=== PATIENT | male | born 1940 | race Caucasian/White ===

== ENCOUNTER → 2018-01-22 | Outpatient (CLI) | payer MEDICARE ==
--- NOTE | 2018-01-22 09:15 | CT ---
EXAMINATION TYPE: CT chest wo con DATE OF EXAM: 01/22/2018 COMPARISON: NONE HISTORY: Cough CT DLP: 590 mGycm. Automated Exposure Control for Dose Reduction was Utilized. TECHNIQUE: CT scan of the thorax is performed without IV contrast. FINDINGS: LUNGS: There is a 6 mm cavitary nodule within the right upper lobe on sagittal series 7 image 23 and axial series 4 image 33 peripherally. Solid left basilar pulmonary nodule on series 4 image 45 measur es 4 mm. There are numerous areas of subpleural reticulation and early honeycombing such as on series 4 image 35 is there is stacking of at least 3 lung cysts upon one another within the lingula scatter ed areas of peribronchial cuffing are seen such as on series 4 image [address] anes. Right upper lobe peripheral bleb is incidentally noted with right upper lobe groundglass opacit ies and focal anterior pleural thickening measuring up to 4 mm on the right cylindrical bronchiectasi s is seen within the lower lobes in addition to scattered areas of subsegmental linear atelectasis an d pleural parenchymal scarring. No focal consolidation, pleural effusion or pneumothorax is seen. Left upper lobe varicose bronchiect asis is identified on sagittal series 7 image 83. The main tracheobronchial tree is patent. MEDIASTINUM: Lack of IV contrast is noted to limit evaluation for mediastinal and especially hilar ad enopathy. There are no definitive greater than 1 cm hilar or mediastinal lymph nodes. Moderate three- vessel coronary artery calcifications are present moderate atheromatous changes are seen of the thora cic aorta and visualized portions of the abdominal aorta. No cardiomegaly or pericardial effusion is seen. OTHER: There is a 2.6 cm right renal cyst and a 3.4 cm right renal cyst. There are lobulated margins of the kidneys, incompletely evaluated without contrast. Additional smaller right renal cysts are see n with cortical calcifications and areas of renal parenchymal retraction likely from prior injury. Sc attered colonic diverticula are incidentally noted. Moderate multilevel degenerative changes of the t horacic spine are seen. IMPRESSION: 1. 6 mm right upper lobe cavitary nodule for which short-term follow-up in 3 months is recommended as this could be postinflammatory, postinfectious or neoplastic. 2. Features suggesting early pulmonary fibrosis within the lung bases in a peripheral basilar distrib ution and lingula. No features to silhouette of either diagnosis are yet present. 3. Lower lobe predominant bronchiectasis and few scattered areas of peribronchial cuffing that may be inflammatory or infectious. 4. Scattered areas of atelectasis in the right upper lobe subpleural groundglass opacities that also could relate to atelectasis or less likely infectious etiology. 5. Moderate three-vessel coronary artery calcifications.
--- NOTE | 2018-01-22 09:23 | US ---
EXAMINATION TYPE: US venous doppler duplex LE DATE OF EXAM: 01/22/2018 8:29 AM COMPARISON: NONE CLINICAL HISTORY: M79.609 pain in extremity. Bilateral calf pain. SIDE PERFORMED: Bilateral TECHNIQUE: The lower extremity deep venous system is examined utilizing real time linear array sonog brayden with graded compression, doppler sonography and color-flow sonography. VESSELS IMAGED: External Iliac Vein (EIV) Common Femoral Vein Deep Femoral Vein Greater Saphenous Vein * Femoral Vein Popliteal Vein Proximal Calf Veins (* superficial vessels) Grayscale, color doppler, spectral doppler imaging performed of the deep veins of the lower extremiti es. There is normal flow, compressibility, vascular waveforms. Right Leg: Negative for DVT Left Leg: Negative for DVT IMPRESSION: No evidence for DVT bilaterally.
--- NOTE | 2018-01-26 10:15 | P.ARTDOP ---
Arterial Doppler LOWER EXTREMITY ARTERIAL DOPPLER: DATE OF SERVICE: 01/22/2018 Reason for study: Bilateral calf pain. Doppler waveforms: Multiphasic bilaterally throughout. Pulse volume recording: []. Pressure gradients: None. Ankle-brachial indices: Greater than 1 bilaterally. Toe pressures: [] on the right, [] on the left Impression: Normal study.
== END | disposition home or self-care (01) ==
LOC: RADCTMAIN 07:39
PROVIDERS: ATTEND Internal Medicine
DX: R91.1 Solitary pulmonary nodule (principal); J47.9 Bronchiectasis, uncomplicated; J98.11 Atelectasis; I25.10 Atherosclerotic heart disease of native coronary artery without angina pectoris; M79.662 Pain in left lower leg; M79.661 Pain in right lower leg
CPT/HCPCS: 71250; 93922; 93970

== ENCOUNTER → 2018-02-22 | Outpatient (CLI) | payer MEDICARE ==
[2018-02-22 17:09] LABS: HGB 15.3 gm/dL (13.0-17.5); MCHC 34.7 g/dL (31.0-37.0); Platelet Count 158 k/uL (150-450); RBC 4.64 m/uL (4.30-5.90); RDW 14.1 % (11.5-15.5); WBC 8.8 k/uL (3.8-10.6)
[2018-02-22 17:13] LABS: Potassium 4.8 mmol/L (3.5-5.1)
== END | disposition home or self-care (01) ==
LOC: LABWHC1 16:20
PROVIDERS: ATTEND Internal Medicine Interventional Cardiology
DX: Z01.812 Encounter for preprocedural laboratory examination (principal); I25.10 Atherosclerotic heart disease of native coronary artery without angina pectoris
CPT/HCPCS: 80051; 82565; 84520; 85027

== ENCOUNTER 2018-03-02 06:48 | Day surgery (SDC) | payer MEDICARE ==
[2018-02-24 15:05] VITALS: BMI 32.8
[~2018-03-02 06:48] MED LIST: ALPRAZolam 0.25 MG TAB PO PRN; ASPIRIN 325 MG TAB PO ONE; ATORVASTATIN 80 MG TAB PO STA; NITROGLYCERIN SL TABS 0.4 MG TAB SUBLINGUAL PRN; SODIUM CHLORIDE 0.9% 1,000 ML in EMPTY BAG 1 BAG IV ONE
[2018-03-02] MEDS ORDERED: IV FLUID CONTINUATION 1,000 ML IV ONE (12:20)
[2018-03-02] MEDS ORDERED: MIDAZOLAM 2 MG/2 ML VIAL IV ONE (12:45)
[2018-03-02] MEDS ORDERED: LIDOCAINE 2% SYG (PF) 100 MG/5 ML MISCELLANE ONE (12:46)
[2018-03-02] MEDS: VERAPAMIL SYRINGE (5 MG/10 ML) INTRAARTER ONE ×2 (12:47→13:01)
[2018-03-02] MEDS ORDERED: HEPARIN SODIUM 1,000 UN/ML (10ML VL) IV ONE (12:48)
[2018-03-02] MEDS ORDERED: IOPAMIDOL-370 125ML BTL INJ ONE (13:01)
[2018-03-02] MEDS ORDERED: RX INFO: IV CONTRAST WAS GIVEN 1 EACH MISC MISCELLANE PRN (13:10)
[2018-03-02] MEDS ORDERED: SODIUM CHLORIDE 0.9% 1,000 ML IV SCH (13:15)
--- NOTE | 2018-03-02 13:38 | CC ---
CARDIAC CATHETERIZATION REPORT DATE OF SERVICE: 03/02/2018 PERFORMING PHYSICIAN: Raymond Summers MD, microfilming document preparer. PROCEDURE PERFORMED: 1. Selective right and left coronary angiogram. 2. Left heart catheterization. INDICATION: This is a pleasant 78-year-old gentleman with hypertension and dyslipidemia who was experiencing intermittent episodes of chest discomfort concerning for angina. In view of that, he was brought to undergo a heart catheterization. APPROACH: Right radial artery. COMPLICATION: None. LEVEL OF SEDATION: Moderate with sedation length of 18 minutes. PROCEDURE DESCRIPTION: After obtaining an informed consent, the patient was brought to the cardiac union laborer. The right radial artery was cannulated using micropuncture technique and a micropuncture wire passed easily then I placed a 6-[place] sheath in the right radial artery. After that, I did selective right and left coronary angiogram using JR4 and JL3.5 catheters. Left heart catheterization was performed using 6-[place] pigtail catheter. The procedure was completed without any complication. SELECTIVE CORONARY ANGIOGRAM: 1. The RCA is a large caliber vessel and it is a dominant vessel. The proximal RCA has intermediate lesion, appeared to be in the range of 50%. The mid RCA and distal RCA are angiographically normal. The RCA distally bifurcates into PDA and PLV branches both are angiographically normal. 2. The left main is angiographically normal. It bifurcates into left circumflex and left anterior descending artery. 3. The left circumflex is a large caliber vessel and it is a nondominant vessel. The proximal circumflex appeared to be angiographically normal and gives rise into the first OM branch which is a large caliber vessel, seems to be angiographically normal. The circumflex after the first OM branch becomes medium caliber vessel in the AV groove. 4. The LAD: The proximal LAD appeared to have mild disease only. The mid LAD appeared to be angiographically normal and the LAD distally is angiographically normal as well. The LAD gives rise into multiple small diagonal branches that seems to be angiographically normal. HEMODYNAMICS: The left ventricular end-diastolic pressure was 16 mmHg and no gradient was identified across the aortic valve. CONCLUSION: 1. Intermediate disease involving the proximal right coronary artery appeared to be in the range of 60%. The lesion is eccentric and was seen more prominent in the [place] caudal view. 2. Normal left main coronary artery. 3. Normal left circumflex coronary artery. 4. Mild disease involving the left anterior descending artery. Postprocedure management is maximize medical treatment and follow up with the patient. MELO / SEEMAN: [id number] /
--- NOTE | 2018-03-02 13:44 | LTR ---
March 02, 2018 Re: Rashawn Romo Dear Dr. Gamez: Mr. Rashawn Romo underwent heart catheterization and that revealed intermediate nonobstructive coronary artery disease involving the RCA. Maximized medical treatment is recommended at this point of time. I want to thank you for allowing me to participate in his care and please do not hesitate to call if you have any question or concern. Sincerely, MD MELO Hernandez / PILAR: [phone] /
[2018-03-02 14:24] VITALS: RESP 20
[2018-03-02 17:38] VITALS: BP 125/60
== END 2018-03-02 18:04 | disposition home or self-care (01) ==
LOC: CATHCVL 06:48
PROVIDERS: ATTEND Internal Medicine Interventional Cardiology
DX: I25.110 Atherosclerotic heart disease of native coronary artery with unstable angina pectoris (principal); I10 Essential (primary) hypertension; E78.00 Pure hypercholesterolemia, unspecified; Z79.82 Long term (current) use of aspirin; Z79.890 Hormone replacement therapy; Z79.899 Other long term (current) drug therapy; Z88.1 Allergy status to other antibiotic agents; Z88.0 Allergy status to penicillin; Z88.2 Allergy status to sulfonamides; Z87.891 Personal history of nicotine dependence
CPT/HCPCS: 93458; C1894; J2250; J2001; J1644; Q9967

== ENCOUNTER → 2018-05-10 | Outpatient (CLI) | payer MEDICARE ==
--- NOTE | 2018-05-10 09:07 | CT ---
EXAMINATION TYPE: High-resolution CT chest DATE OF EXAM: 05/10/2018 COMPARISON: 01/22/2018 HISTORY: 78-year-old male previous abnormal, shortness of breath TECHNIQUE: Contiguous high-resolution axial scanning of the chest was performed with 1 mm slice thick ness and 1 cm gap without IV contrast. Both supine and prone imaging was performed. CT DLP: 965.20 mGycm Automated exposure control for dose reduction was used. FINDINGS: Heart is normal size without pericardial effusion. Coronary vessel calcifications are redemonstrated. Conventional branching anatomy with mild to moderate atherosclerotic calcifications in the aortic arc h and mild within the descending thoracic aorta. Borderline sized caliber to the main right and left pulmonary arteries at 2.5 cm each. Scattered nonenlarged mediastinal lymph nodes are demonstrated by HRCT technique. Evaluation of the lungs shows patchy peripheral groundglass density and reticulations with a lower leticia ng predominance but also present within the upper lobes. Also redemonstrated bibasilar bronchiectasis . Subpleural microcystic changes present peripherally at the lung bases as well. Overall appearance i s unchanged. Stable 6 mm pulmonary nodule peripheral right midlung again shows a small area of central cavitation. HRCT technique limits assessment for small pulmonary nodules. Visualized upper abdomen redemonstrates hypodense lesions in the right kidney measuring up to 2.9 cm posteriorly, probable cyst. Bones: Endplate spondylosis throughout the thoracic spine. IMPRESSION: 1. REDEMONSTRATED PATCHY PERIPHERAL GROUNDGLASS DENSITIES AND SUBPLEURAL FIBROSIS WITH A LOWER LUNG P REDOMINANCE AND ASSOCIATED BIBASILAR BRONCHIECTASIS WITH SUBPLEURAL MICROCYSTIC CHANGES. DIFFERENTIAL CONSIDERATIONS INCLUDE FIBROTIC NSIP OR EARLY UIP. 2. A 6 MM RIGHT MIDLUNG PULMONARY NODULE IS RELATIVELY STABLE FOR 3 MONTHS AND AGAIN SHOWS A SMALL AR EA OF CENTRAL CAVITATION. CONTINUED FOLLOW-UP RECOMMENDED. 3. CAD.
== END | disposition home or self-care (01) ==
LOC: RADCTMAIN 08:28
PROVIDERS: ATTEND Internal Medicine Critical Care Medicine
DX: J47.9 Bronchiectasis, uncomplicated (principal); J84.10 Pulmonary fibrosis, unspecified; I25.10 Atherosclerotic heart disease of native coronary artery without angina pectoris; R91.1 Solitary pulmonary nodule; J98.4 Other disorders of lung; J94.8 Other specified pleural conditions
CPT/HCPCS: 71250

== ENCOUNTER → 2018-12-16 | Outpatient (CLI) | payer MEDICARE ==
--- NOTE | 2018-12-16 14:55 | CT ---
EXAMINATION TYPE: High resolution CT chest DATE OF EXAM: 12/16/2018 COMPARISON: 05/10/2018 HISTORY: 78-year-old male Fibrosis of lung. TECHNIQUE: Contiguous high-resolution axial scanning of the chest utilizing 1 mm slice thickness and 1 cm gap per HRCT protocol without IV contrast. Both supine and prone imaging was performed. CT DLP: 1119.6 mGycm Automated exposure control for dose reduction was used. FINDINGS: Heart normal size without pericardial effusion. Mild atherosclerotic arch calcifications. Proximal descending thoracic aorta remains ectatic at 3.0 c m. Mildly enlarged caliber to the right main pulmonary artery 2.7 cm may reflect underlying pulmonary ar terial hypertension. Scattered nonenlarged mediastinal lymph nodes are redemonstrated.. Visualized upper abdomen shows hypodense lesions within the posterior right kidney measuring up to 3. 3 cm, incompletely characterize, probable cysts. Bones: Endplate spondylosis throughout the thoracic spine. Redemonstrated multifocal peripheral and basilar predominant ground glass with reticular densities an d bibasilar bronchiectasis and minimal subpleural microcystic change. The overall appearance is uncha nged from 05/10/2018. No new consolidation or pleural effusion. IMPRESSION: 1. STABLE INTERSTITIAL AND GROUNDGLASS CHANGES, PERIPHERAL AND LOWER LUNG PREDOMINANT WITH BIBASILAR BRONCHIECTASIS. NO PROGRESSION IN THE FINE SUBPLEURAL MICROCYSTIC CHANGE AND NO HONEYCOMBING. NSIP I S FAVORED. 2. THE PREVIOUS 6 MM CAVITARY APPEARING LESION RIGHT MIDLUNG IS NO LONGER SEEN. 3. POSSIBLE UNDERLYING PULMONARY ARTERIAL HYPERTENSION.
== END | disposition home or self-care (01) ==
LOC: RADCTMAIN 11:58
PROVIDERS: ATTEND Internal Medicine Critical Care Medicine
DX: J47.9 Bronchiectasis, uncomplicated (principal); R91.8 Other nonspecific abnormal finding of lung field; Z88.0 Allergy status to penicillin; Z88.1 Allergy status to other antibiotic agents; Z88.2 Allergy status to sulfonamides; Z91.041 Radiographic dye allergy status
CPT/HCPCS: 71250

== ENCOUNTER → 2019-07-22 | Outpatient (CLI) | payer MEDICARE ==
[2019-07-22 09:52] LABS: Potassium 4.7 mmol/L (3.5-5.1)
[2019-07-22 10:24] LABS: HCT 41.6 % (39.0-53.0); HGB 14.3 gm/dL (13.0-17.5); MCH 32.7 pg (25.0-35.0); MCHC 34.3 g/dL (31.0-37.0); MCV 95.2 fL (80.0-100.0); Mean Platelet Volume 5.7; Platelet Count 182 k/uL (150-450); RBC 4.37 m/uL (4.30-5.90); RDW 13.7 % (11.5-15.5); WBC 8.6 k/uL (3.8-10.6)
== END | disposition home or self-care (01) ==
LOC: LABPAT 08:56
PROVIDERS: ATTEND Internal Medicine Interventional Cardiology
DX: Z01.812 Encounter for preprocedural laboratory examination (principal); I25.10 Atherosclerotic heart disease of native coronary artery without angina pectoris
CPT/HCPCS: 36415; 80051; 82565; 84520; 85027

== ENCOUNTER 2019-08-02 06:06 | Day surgery (SDC) | payer MEDICARE ==
[~2019-08-02 06:06] MED LIST changes: +ALPRAZolam 0.5 MG TAB PO PRN; -ASPIRIN 325 MG TAB PO ONE; +ASPIRIN 325 MG TAB PO STA
[2019-08-02] MEDS ORDERED: SODIUM CHLORIDE 0.9% 1,000 ML IV ONE (06:47)
[2019-08-02] MEDS ORDERED: MIDAZOLAM 2 MG/2 ML VIAL IVP ONE (07:42)
[2019-08-02] MEDS ORDERED: LIDOCAINE 1% INJ 10MG/ML (20 ML MDV) SQ ONE (07:42)
[2019-08-02] MEDS ORDERED: VERAPAMIL SYRINGE (5 MG/10 ML) INTRAARTER ONE ×2 (07:44→08:27)
[2019-08-02] MEDS ORDERED: HEPARIN SODIUM 1,000 UN/ML (10ML VL) IV ONE (07:49)
[2019-08-02] MEDS ORDERED: ADENOSINE 3 MG/ML 4 ML VIAL IVP ONE (08:10)
[2019-08-02] MEDS ORDERED: SODIUM CHLORIDE 0.9% 100 ML BAG ONE (08:10)
[2019-08-02] MEDS ORDERED: CLOPIDOGREL 75 MG TAB PO ONE (08:14)
[2019-08-02] MEDS ORDERED: NITROGLYCERIN 1000MCG/10ML SYRINGE INTRACORON ONE (08:21)
[2019-08-02] MEDS ORDERED: IOPAMIDOL-370 100ML BTL INJ ONE (08:23)
[2019-08-02] MEDS ORDERED: IOPAMIDOL-300 50ML BTL INJ ONE (08:27)
[2019-08-02] MEDS ORDERED: NITROGLYCERIN SL TABS 0.4 MG TAB SUBLINGUAL PRN (08:34)
[2019-08-02] MEDS ORDERED: MAG HYDROX/AL HYDROX/SIMETH 30 ML CUP PO PRN (08:34)
[2019-08-02] MEDS ORDERED: ATROPINE SULFATE 0.1 MG/ML 10ML SYRINGE IV PRN (08:34)
[2019-08-02] MEDS ORDERED: RX INFO: IV CONTRAST WAS GIVEN 1 EACH MISC MISCELLANE PRN (08:34)
[2019-08-02] MEDS ORDERED: ZOLPIDEM 5 MG TAB PO PRN (08:34)
[2019-08-02] MEDS ORDERED: NON FORMULARY DRUG (Turmeric Root Extract [Turmeric] 500 MG) PO SCH (08:45)
[2019-08-02] MEDS ORDERED: SODIUM CHLORIDE 0.9% 1,000 ML IV SCH (08:45)
[2019-08-02] MEDS ORDERED: NON FORMULARY DRUG (Ubidecarenone [Co Q-10] 100 MG) PO SCH (08:45)
[2019-08-02] MEDS ORDERED: GLUCOSAMINE SULFATE 500 MG PO SCH (09:00)
--- NOTE | 2019-08-02 09:24 | CC ---
CARDIAC CATHETERIZATION REPORT CARDIAC CATHETERIZATION AND PERCUTANEOUS CORONARY INTERVENTION: DATE OF SERVICE: August 02, 2019 PERFORMING PHYSICIAN: Raymond Summers MD. PROCEDURE PERFORMED: 1. Selective right and left coronary angiogram. 2. Fractional flow reserve FFR of the RCA. 3. Successful stenting of the proximal right coronary artery using 4.0 x 18 mm Xience STEPHEN with an excellent angiographic result and reduction of stenosis from 70% to 0%. INDICATION: This is an 79-year-old gentleman with history of coronary artery disease as well as hypertension and dyslipidemia who continues to be symptomatic. He underwent myocardial perfusion imaging and that revealed reversible defect involving the apex of the left ventricle. Because of that, a heart catheterization was advised. APPROACH: Right radial artery. COMPLICATION: None. LEVEL OF SEDATION: Moderate with sedation length of 53 minutes. PROCEDURE DESCRIPTION: After obtaining an informed consent, the patient was brought to the cardiac labor relations specialist. The right radial artery was cannulated using micropuncture technique, the micropuncture wire passed easily then I placed a 6-[place] sheath in the right radial artery. After that, I did give the patient 2 mg of verapamil IA and 10,000 units of heparin IV. Selective right and left coronary angiogram performed using JR4 and JL3.5 catheters. Left heart catheterization was performed using the JR4 catheter which crossed the aortic valve then I did pullback across the valve after I flushed the catheter. After that I did FFR of the RCA and stenting of the RCA. Please see a separate paragraph for that. SELECTIVE CORONARY ANGIOGRAM: 1. Right coronary artery is a large caliber vessel. It is a dominant vessel. The proximal RCA has a lesion appeared to be in the range of 60% to 70%. We did an FFR on it and that came in to be ischemic. The mid and distal RCA appeared to be angiographically normal. The RCA distally bifurcates into PDA and PLV branches, both appeared to be angiographically normal. 2. The left main has mild disease only. It bifurcates into left circumflex and left anterior descending artery. 3. The left circumflex is a large caliber vessel. It is a nondominant vessel. The proximal circumflex appeared to be normal and gives rise into a first OM branch which appeared to be normal. The mid circumflex is normal and gives rise into a second OM branch which seems to be normal and the circumflex continued after that as a small-caliber vessel in the AV groove. 4. The LAD: Proximal LAD appeared to have mild disease only. It gives rise into a small diagonal branch which seems to be normal. The mid LAD is normal and gives rise into second diagonal branch which seems to be normal and the LAD distally appeared to be normal. HEMODYNAMICS: The LVEDP was about 8 to 12 mmHg without significant gradient across the aortic valve. FFR AND PCI OF THE RCA: After assuring that the ACT was therapeutic with heparin, we did an iFR of the RCA and we did that after zeroing the Doppler wire and equalizing between the Doppler wire and the guiding catheter which was JR4 guiding catheter. The iFR came into be 0.83. At that point, I did balloon angioplasty of the RCA using a 3.0 x 15 mm balloon before I deployed 4.0 x 18 mm Xience STEPHEN where the stent was positioned under fluoroscopy guidance and deployed under 14 atmospheres for 20 seconds with the following angiogram showing good angiographic results and the procedure was completed without any complication. CONCLUSION: 1. Intermediate to severe disease involving the proximal right coronary artery. I did an iFR on it and that came in to be ischemic. 2. Mild disease involving the left coronary system. 3. Successful stenting of the proximal RCA using 4.0 x 18 mm Xience with an excellent angiographic result. POSTPROCEDURE MANAGEMENT: 1. Medical treatment. 2. Follow up with the patient. MMODL / IJN: [id number] /
[2019-08-02] MEDS: guaiFENesin 600 MG TABLET.ER PO SCH (10:16)
[2019-08-02] MEDS: MULTIVITAMINS, THERA 1 EACH TAB PO SCH (10:16)
[2019-08-02] MEDS: LEVOTHYROXINE 100 MCG TAB PO SCH (10:37)
[2019-08-02 11:21] VITALS: BMI 31.8
[2019-08-03 05:04] VITALS: PULSE 79; TEMP 98.2
[2019-08-03] MEDS: LEVOTHYROXINE 100 MCG TAB PO SCH (06:09)
[2019-08-03 06:38] LABS: Basophils % (A) 0 %; Eosinophils # (A) 0.4 k/uL (0-0.7); Eosinophils % (A) 4 %; HCT 39.9 % (39.0-53.0); HGB 13.5 gm/dL (13.0-17.5); Lymphocytes # (A) 1.8 k/uL (1.0-4.8); Lymphocytes % (A) 20 %; MCH 32.1 pg (25.0-35.0); MCV 94.7 fL (80.0-100.0); Mean Platelet Volume 6.6; Monocytes # (A) 0.6 k/uL (0-1.0); Monocytes % (A) 7 %; Neutrophils % (A) 66 %; Platelet Count 194 k/uL (150-450); RBC 4.22 m/uL (4.30-5.90); RDW 13.3 % (11.5-15.5)
[2019-08-03 06:47] LABS: Calcium 8.9 mg/dL (8.4-10.2); Potassium 4.3 mmol/L (3.5-5.1)
[2019-08-03] MEDS ORDERED: METOPROLOL TARTRATE 25 MG TAB PO SCH (09:00)
[2019-08-03] MEDS ORDERED: ATORVASTATIN 40 MG TAB PO SCH (09:00)
[2019-08-03] MEDS ORDERED: ATORVASTATIN 20 MG TAB PO SCH (09:00)
[2019-08-03] MEDS ORDERED: LISINOPRIL 5 MG TAB PO SCH (09:00)
[2019-08-03] MEDS ORDERED: CLOPIDOGREL 75 MG TAB PO SCH (09:00)
[2019-08-03] MEDS ORDERED: ASPIRIN 81 MG PO SCH (09:00)
[2019-08-03] MEDS: guaiFENesin 600 MG TABLET.ER PO SCH (09:09)
[2019-08-03] MEDS: MULTIVITAMINS, THERA 1 EACH TAB PO SCH (09:09)
--- NOTE | 2019-08-03 09:34 | P.PN ---
Subjective Progress Note Date: 08/03/19 Discharge note This is a pleasant 79-year-old gentleman with history of coronary artery disease, hypertension, hyperlipidemia, underwent a stress test as an outpatient which revealed reversible defect in the apex of the left ventricle and for that reason he was brought to the hospital and underwent a cardiac catheterization. Patient also underwent an FFR of the RCA with subsequent successful stenting of the right coronary artery. He was seen and examined this morning, denied any chest pain or difficulty in breathing. He's been up ambulating without any difficulty. EKG from this morning showed a normal sinus rhythm with no changes from post-PCI. Blood pressure 138/60 with a heart rate is 70, 95% on room air. Blood cell count 9.0, hemoglobin 13.5, platelet count 194. Sodium 139, potassium 4.3, BUN 19 and creatinine 1.2. Objective - Vital Signs Vital signs: Vital Signs Temp 98.2 F 08/03/19 04:00 Pulse 79 08/03/19 04:00 Resp 18 08/03/19 04:00 BP 138/65 08/03/19 04:00 Pulse Ox 95 08/03/19 04:00 Intake & Output 08/02/19 08/03/19 08/03/19 18:59 06:59 18:59 Intake Total 990 240 Output Total 900 Balance 990 -660 Weight 100.9 kg 101.2 kg Intake: IV 150 Oral 840 240 Output: Urine 900 Other: Voiding Method Toilet # Voids 2 2 - Exam PHYSICAL EXAMINATION: GENERAL: 79-year-old gentleman in no acute distress at the time of my examination HEENT: Head is atraumatic, normocephalic. Pupils equal, round. Sclera anicteric. Conjunctiva are clear. Mucous membranes of the mouth are moist. Neck is supple. There is no elevated jugular venous pressure. No carotid bruit is heard. HEART EXAMINATION: Heart S1, S2 normal. No murmur or gallop heard. CHEST EXAMINATION: Lungs are clear to auscultation and precussion. No chest wall tenderness is noted on palpation or with deep breathing. ABDOMEN: Soft, nontender. Bowel sounds are heard. No organomegaly noted. EXTREMITIES: 2+ peripheral pulses with no evidence of peripheral edema and no calf tenderness noted. Right radial site clean and dry, good distal pulse. NEUROLOGIC patient is awake, alert and oriented 3 . . - Labs CBC & Chem 7: 08/03/19 05:44 08/03/19 05:44 Labs: Abnormal Lab Results - Last 24 Hours (Table) 08/03/19 08/03/19 Range/Units 05:44 05:44 RBC 4.22 L (4.30-5.90) m/uL Creatinine 1.29 H (0.66-1.25) mg/dL Assessment and Plan Plan: Assessment and plan #1 status post angioplasty and stenting of the proximal right coronary artery #2 known history of coronary artery disease #3 hypertension #4 hyperlipidemia Plan Patient will be discharged home today, follow-up appointment with Dr. Summers in the office post discharge. Discharge medications include aspirin 81 mg daily, Lipitor 40 mg daily, Plavix 75 mg daily, Zestril 5 mg daily, Synthroid 100 g daily, metoprolol 25 mg twice a day, multivitamin, sublingual nitroglycerin as needed for chest pain. DNP note has been reviewed, I agree with a documented findings and plan of care. Patient was seen and examined.
[2019-08-03 09:41] VITALS: BP 136/63; RESP 14
== END 2019-08-03 09:22 | disposition home or self-care (01) ==
LOC: CATHCVL 06:06 → 3SCARD 08:34 → CATHCVL 08-03 09:22
PROVIDERS: ATTEND Internal Medicine Interventional Cardiology
DX: I25.110 Atherosclerotic heart disease of native coronary artery with unstable angina pectoris (principal); I10 Essential (primary) hypertension; E78.00 Pure hypercholesterolemia, unspecified; E78.5 Hyperlipidemia, unspecified; F17.210 Nicotine dependence, cigarettes, uncomplicated; Z79.82 Long term (current) use of aspirin; Z79.899 Other long term (current) drug therapy; Z79.890 Hormone replacement therapy; Z88.1 Allergy status to other antibiotic agents; Z88.2 Allergy status to sulfonamides; Z88.0 Allergy status to penicillin
CPT/HCPCS: 93571; 93454; 80048; 85025; C9600; C1887; C1725; C1874; C1769; C1894; J2250; J2001; J1644; J0153; Q9967 ×2

== ENCOUNTER 2019-08-30 12:36 | Inpatient (IN) | payer MEDICARE ==
[2019-08-30] MEDS ORDERED: DICYCLOMINE 10 MG/ML 2 ML AMP IM STA (13:02)
[2019-08-30] MEDS ORDERED: FAMOTIDINE 20 MG/2 ML VIAL IV STA (13:02)
[2019-08-30] MEDS ORDERED: ONDANSETRON 4 MG/2 ML VIAL IVP STA (13:02)
[2019-08-30] MEDS ORDERED: SODIUM CHLORIDE 0.9% 500 ML 500 ML IV STA (13:02)
[2019-08-30] MEDS ORDERED: SODIUM CHLORIDE 0.9% 1,000 ML IV STA (13:02)
--- NOTE | 2019-08-30 13:06 | ED ---
General Adult HPI - General Chief complaint: Abdominal Pain Stated complaint: Abdominal discomfort Time Seen by Provider: 08/30/19 12:47 Source: patient, family, RN notes reviewed Mode of arrival: ambulatory Limitations: no limitations - History of Present Illness Initial comments: patient is a pleasant 79-year-old male presenting to the emergency Department with complaints of abdominal discomfort. Patient has had some similar symptoms over the past month or more. Symptoms were worse today. Discomfort started in the lower midabdomen and extended up to the epigastric region. Patient did have nausea. Discomfort was severe for around 15 minutes however now is moderate. Patient still has some mild nausea. No constipation or diarrhea. Patient states his bowel movements have been somewhat odd for the past month. Patient is now taking probiotics. No back pain. No chest pain. No fevers. - Related Data Home Medications Medication Instructions Recorded Confirmed Aspirin [Adult Low Dose Aspirin EC] 81 mg PO DAILY 02/24/18 08/02/19 Glucosamine Sulfate 500 mg PO DAILY 02/24/18 08/02/19 Levothyroxine Sodium [Synthroid] 100 mcg PO DAILY 02/24/18 08/02/19 Multivitamins, Thera [Multivitamin 1 tab PO DAILY 02/24/18 08/02/19 (formulary)] Turmeric Root Extract [Turmeric] 500 mg PO Q48H 02/24/18 08/02/19 Ubidecarenone [Co Q-10] 100 mg PO Q48H 02/24/18 08/02/19 guaiFENesin [Mucinex] 600 mg PO DAILY 07/29/19 08/02/19 Previous Rx's Medication Instructions Recorded Atorvastatin [Lipitor] 40 mg PO DAILY #30 tab 08/03/19 Clopidogrel [Plavix] 75 mg PO DAILY #30 tab 08/03/19 Lisinopril [Zestril] 5 mg PO DAILY #30 tab 08/03/19 Metoprolol Tartrate [Lopressor] 25 mg PO BID #60 tab 08/03/19 Nitroglycerin Sl Tabs [Nitrostat] 0.4 mg SUBLINGUAL Q5M PRN #25 tab 08/03/19 Allergies Allergy/AdvReac Type Severity Reaction Status Date / Time erythromycin base Allergy Unknown Verified 08/30/19 12:43 Penicillins Allergy Unknown Verified 08/30/19 12:43 Sulfa (Sulfonamide Allergy Unknown Verified 08/30/19 12:43 Antibiotics) Iodine and Iodide Containing AdvReac decrease Verified 08/30/19 12:43 Produc kidney function Review of Systems ROS Statement: Those systems with pertinent positive or pertinent negative responses have been documented in the HPI. ROS Other: All systems not noted in ROS Statement are negative. Constitutional: Denies: fever Eyes: Denies: eye pain ENT: Denies: ear pain Respiratory: Denies: cough, dyspnea Cardiovascular: Denies: chest pain Endocrine: Denies: fatigue Gastrointestinal: Reports: as per HPI, nausea. Denies: vomiting, diarrhea Genitourinary: Denies: dysuria, frequency, hematuria Musculoskeletal: Denies: back pain Skin: Denies: rash Neurological: Denies: weakness Past Medical History Past Medical History: Coronary Artery Disease (CAD), Cancer, Hyperlipidemia, Hypertension, Thyroid Disorder Additional Past Medical History / Comment(s): skin ca History of Any Multi-Drug Resistant Organisms: None Reported Past Surgical History: Appendectomy, Heart Catheterization With Stent, Tonsillectomy Additional Past Surgical History / Comment(s): bladder - blood tumor, bladder repair, melanoma and graft Past Psychological History: No Psychological Hx Reported Smoking Status: Former smoker Past Alcohol Use History: None Reported Past Drug Use History: None Reported General Exam Limitations: no limitations General appearance: alert, in no apparent distress Head exam: Present: normocephalic Eye exam: Present: normal appearance, PERRL ENT exam: Present: normal oropharynx Neck exam: Present: normal inspection Respiratory exam: Present: normal lung sounds bilaterally Cardiovascular Exam: Present: regular rate, normal rhythm Expanded Peripheral pulses: 2+: Posterior Tibialis (R), Posterior Tibialis (L), Dorsalis Pedis (R), Dorsalis Pedis (L) GI/Abdominal exam: Present: soft, tenderness (mild midline abdominal tenderness), normal bowel sounds. Absent: distended, guarding, rebound, rigid, pulsatile mass Extremities exam: Present: normal inspection Neurological exam: Present: alert Psychiatric exam: Present: normal affect, normal mood Skin exam: Present: normal color Course Vital Signs 08/30/19 12:37 Temperature 97.7 F Pulse Rate 56 L Respiratory 18 Rate Blood Pressure 109/67 O2 Sat by Pulse 96 Oximetry Medical Decision Making - Medical Decision Making Patient reevaluated and resting comfortably at bedside. Patient and family updated on results and plan. Case was discussed in detail with Dr. Crandall, who will admit covered for Dr. Gamez. She does request cefepime and consult with Dr. López and GI. - Lab Data Result diagrams: 08/30/19 13:15 08/30/19 13:15 Lab Results 08/30/19 08/30/19 08/30/19 Range/Units 13:15 13:15 13:15 WBC 9.1 (3.8-10.6) k/uL RBC 4.40 (4.30-5.90) m/uL Hgb 14.1 (13.0-17.5) gm/dL Hct 41.7 (39.0-53.0) % MCV 94.7 (80.0-100.0) fL MCH 32.1 (25.0-35.0) pg MCHC 33.9 (31.0-37.0) g/dL RDW 13.4 (11.5-15.5) % Plt Count 187 (150-450) k/uL Neutrophils % 66 % Lymphocytes % 18 % Monocytes % 8 % Eosinophils % 5 % Basophils % 1 % Neutrophils # 6.1 (1.3-7.7) k/uL Lymphocytes # 1.6 (1.0-4.8) k/uL Monocytes # 0.7 (0-1.0) k/uL Eosinophils # 0.5 (0-0.7) k/uL Basophils # 0.1 (0-0.2) k/uL PT 10.3 (9.0-12.0) sec INR 1.0 (<1.2) APTT 23.8 (22.0-30.0) sec Sodium 139 (137-145) mmol/L Potassium 4.7 (3.5-5.1) mmol/L Chloride 106 (98-107) mmol/L Carbon Dioxide 26 (22-30) mmol/L Anion Gap 7 mmol/L BUN 24 H (9-20) mg/dL Creatinine 1.49 H (0.66-1.25) mg/dL Est GFR (CKD-EPI)AfAm 50 (>60 ml/min/1.73 sqM) Est GFR (CKD-EPI)NonAf 44 (>60 ml/min/1.73 sqM) Glucose 82 (74-99) mg/dL Calcium 9.6 (8.4-10.2) mg/dL Total Bilirubin 0.7 (0.2-1.3) mg/dL AST 58 (17-59) U/L ALT 91 H (4-49) U/L Alkaline Phosphatase 119 (38-126) U/L Total Protein 6.7 (6.3-8.2) g/dL Albumin 4.1 (3.5-5.0) g/dL Amylase 44 (30-110) U/L Lipase 104 (23-300) U/L Urine Color Urine Appearance (Clear) Urine pH (5.0-8.0) Ur Specific Ranger (1.001-1.035) Urine Protein (Negative) Urine Glucose (UA) (Negative) Urine Ketones (Negative) Urine Blood (Negative) Urine Nitrite (Negative) Urine Bilirubin (Negative) Urine Urobilinogen (<2.0) mg/dL Ur Leukocyte Esterase (Negative) Urine RBC (0-5) /hpf Urine WBC (0-5) /hpf Hyaline Casts (0-2) /lpf Urine Mucus (None) /hpf 08/30/19 Range/Units 13:15 WBC (3.8-10.6) k/uL RBC (4.30-5.90) m/uL Hgb (13.0-17.5) gm/dL Hct (39.0-53.0) % MCV (80.0-100.0) fL MCH (25.0-35.0) pg MCHC (31.0-37.0) g/dL RDW (11.5-15.5) % Plt Count (150-450) k/uL Neutrophils % % Lymphocytes % % Monocytes % % Eosinophils % % Basophils % % Neutrophils # (1.3-7.7) k/uL Lymphocytes # (1.0-4.8) k/uL Monocytes # (0-1.0) k/uL Eosinophils # (0-0.7) k/uL Basophils # (0-0.2) k/uL PT (9.0-12.0) sec INR (<1.2) APTT (22.0-30.0) sec Sodium (137-145) mmol/L Potassium (3.5-5.1) mmol/L Chloride (98-107) mmol/L Carbon Dioxide (22-30) mmol/L Anion Gap mmol/L BUN (9-20) mg/dL Creatinine (0.66-1.25) mg/dL Est GFR (CKD-EPI)AfAm (>60 ml/min/1.73 sqM) Est GFR (CKD-EPI)NonAf (>60 ml/min/1.73 sqM) Glucose (74-99) mg/dL Calcium (8.4-10.2) mg/dL Total Bilirubin (0.2-1.3) mg/dL AST (17-59) U/L ALT (4-49) U/L Alkaline Phosphatase (38-126) U/L Total Protein (6.3-8.2) g/dL Albumin (3.5-5.0) g/dL Amylase (30-110) U/L Lipase (23-300) U/L Urine Color Yellow Urine Appearance Clear (Clear) Urine pH 5.5 (5.0-8.0) Ur Specific Ranger 1.017 (1.001-1.035) Urine Protein Negative (Negative) Urine Glucose (UA) Negative (Negative) Urine Ketones Negative (Negative) Urine Blood Negative (Negative) Urine Nitrite Negative (Negative) Urine Bilirubin Negative (Negative) Urine Urobilinogen <2.0 (<2.0) mg/dL Ur Leukocyte Esterase Trace H (Negative) Urine RBC 1 (0-5) /hpf Urine WBC 3 (0-5) /hpf Hyaline Casts 1 (0-2) /lpf Urine Mucus Rare H (None) /hpf - Radiology Data Radiology results: report reviewed (computed tomography scan of the abdomen pelvis and ultrasound gallbladder both concerning for possible mass versus cholecystitis with possible abscess) Disposition Clinical Impression: Abdominal pain Disposition: ADMITTED IP TO THIS HOSP Is patient prescribed a controlled substance at d/c from ED?: No Referrals: Fer Gamez MD [Primary Care Provider] - 1-2 days Decision Time: 15:57
[2019-08-30 13:35] LABS: Basophils # (A) 0.1 k/uL (0-0.2); Basophils % (A) 1 %; Eosinophils # (A) 0.5 k/uL (0-0.7); Eosinophils % (A) 5 %; HCT 41.7 % (39.0-53.0); HGB 14.1 gm/dL (13.0-17.5); Lymphocytes # (A) 1.6 k/uL (1.0-4.8); Lymphocytes % (A) 18 %; MCH 32.1 pg (25.0-35.0); MCHC 33.9 g/dL (31.0-37.0); MCV 94.7 fL (80.0-100.0); Mean Platelet Volume 7.9; Monocytes # (A) 0.7 k/uL (0-1.0); Monocytes % (A) 8 %; Neutrophils # (A) 6.1 k/uL (1.3-7.7); Neutrophils % (A) 66 %; Platelet Count 187 k/uL (150-450); RDW 13.4 % (11.5-15.5); WBC 9.1 k/uL (3.8-10.6)
[2019-08-30 13:44] LABS: Albumin 4.1 g/dL (3.5-5.0); Calcium 9.6 mg/dL (8.4-10.2); Potassium 4.7 mmol/L (3.5-5.1); Total Bilirubin 0.7 mg/dL (0.2-1.3); Total Protein 6.7 g/dL (6.3-8.2)
[2019-08-30 13:51] LABS: Partial Thromboplastin Time 23.8 sec (22.0-30.0); Prothrombin Time 10.3 sec (9.0-12.0)
[2019-08-30 14:12] LABS: Appearance,Urine Clear (Clear); Bilirubin,Urine Negative (Negative); Blood,Urine Negative (Negative); Color,Urine Yellow; Glucose,Urine (UA) Negative (Negative); Hyaline Casts,Urine 1 /lpf (0-2); Ketones,Urine Negative (Negative); Leukocyte Esterase,Urine Trace (Negative); Mucus,Urine Rare /hpf; Nitrite,Urine Negative (Negative); PH, Urine 5.5 (5.0-8.0); Protein,Urine Negative (Negative); RBC,Urine 1 /hpf (0-5); Specific Gravity,Urine 1.017 (1.001-1.035); Urobilinogen,Urine <2.0 mg/dL (<2.0); WBC,Urine 3 /hpf (0-5)
--- NOTE | 2019-08-30 14:37 | CT ---
EXAMINATION TYPE: CT abdomen pelvis wo con DATE OF EXAM: 08/30/2019 COMPARISON: CT chest 12/16/2018, 01/22/2018 HISTORY: Abdominal pain CT DLP: 956.5 mGycm Automated exposure control for dose reduction was used. TECHNIQUE: Helical acquisition of images from the lung bases through the pelvis. FINDINGS: Lack of intravenous contrast could compromise sensitivity of the exam. LUNG BASES: There is coarsening of the interstitium at the lung bases, question some parenchymal nodu larity in the left lower lobe on axial image #11 versus atelectatic change, no pleural or pericardial effusion. Heart is enlarged. There is coronary artery calcification present. AORTA: Mild ectasia of the infrarenal abdominal aorta to 3 cm, there is atheromatous change througho ut the aorta. LIVER/GB: Gallbladder shows abnormal soft tissue attenuation, there is contiguity with the inferior m argin of the right lobe of the liver were hypodensity is extensive measuring approximately 5 cm in gr eatest transverse dimension.. PANCREAS: No significant abnormality is seen. SPLEEN: No significant abnormality is seen. ADRENALS: No significant abnormality is seen. KIDNEYS: Retroaortic left renal vein is present. Kidneys show multiple areas of cortical thinning, th ere are punctate nonobstructive calculi, one on the right and 2 on the left noted. Probable cortical cysts are associated with the right kidney, the largest at the posterior mid pole measures 4 cm. REPRODUCTIVE ORGANS: Prostate shows associated calcifications. Prostate is enlarged. URINARY BLADDER: Nondistended, there is bladder wall thickening possibly due to lack of distention o r chronic outlet obstruction BOWEL: Extensive diverticular change present in the colon. Possible duodenal diverticulum. FREE AIR: No Free Air is visible. ASCITES: None visible. PELVIC ADENOPATHY: None visualized. RETROPERITONEAL ADENOPATHY: No Retroperitoneal Adenopathy visible. 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 There is a spinal curvature. Degenerative disc changes and facet arthropathy especially in the lower lumbar spine. IMPRESSION: ABNORMAL GALLBLADDER AND ASSOCIATED LIVER, CONSIDERATIONS INCLUDE GALLBLADDER CARCINOMA, METASTATIC D ISEASE, GALLBLADDER ULTRASOUND MAY BE OF BENEFIT IF PATIENT IS UNABLE TO RECEIVE INTRAVENOUS CONTRAST FOR REPEAT CT. INTERSTITIAL LUNG DISEASE. NONCONTRAST EXAM. DIVERTICULOSIS. Additional findings abov e. Results relayed to Dr. Lombardi telephonically at the time of interpretation at exam.
--- NOTE | 2019-08-30 15:24 | US ---
EXAMINATION TYPE: US gallbladder DATE OF EXAM: 08/30/2019 COMPARISON: CT abdomen and pelvis of the same date and CT chest dated 12/16/2018. CLINICAL HISTORY: pain, r/o mass. abn CT, abd pain, no jaundice EXAM MEASUREMENTS: Liver Length: 16.5 cm Gallbladder Wall: 0.3 cm CBD: 0.5 cm Right Kidney: 11.2 x 3.7 x 6.6 cm bowel gas and habitus limits exam Pancreas: wnl Liver: heterogeneous and ill-defined area noted superior to GB measuring 4-7cm, otherwise very diffi cult to penetrate liver Gallbladder: There is limited visibility of the gallbladder. There are indistinct margins of the gal lbladder with the adjacent liver as seen on the CT of the same date. Evidence for sonographic Henao's sign: no CBD: wnl Right Kidney: multiple cysts seen, largest inferior pole = 3.6cm. Cortical renal thinning is seen. IMPRESSION: Findings similar to the prior CT with well-defined margin between the poorly visualized g allbladder and liver. Considerations are for acute cholecystitis with phlegmonous change and possible early abscess of the liver, gallbladder carcinoma with invasion of the liver, or hepatic neoplasm wi th adjacent to gallbladder wall thickening secondary to the hepatocellular disease. HIDA scan could a ssess for acute cholecystitis. Findings do not appear to be present on the prior CT of 12/16/2018.
[2019-08-30] MEDS ORDERED: CEFEPIME 2 GM in SODIUM CHLORIDE 0.9% 100 ML IVPB STA (15:57)
[2019-08-30] MEDS ORDERED: NALOXONE 0.4 MG/ML 1 ML VIAL IV PRN (15:59)
[2019-08-30 16:21] LABS: Creatine Kinase MB 0.8 ng/mL (0.0-2.4)
[2019-08-30] MEDS: SODIUM CHLORIDE 0.9% 1,000 ML IV SCH (21:36)
[2019-08-31] MEDS: SODIUM CHLORIDE 0.9% 1,000 ML IV SCH ×4 (00:58→20:53)
[2019-08-31] MEDS ORDERED: CEFEPIME 1 GM in SODIUM CHLORIDE 0.9% 50 ML IVPB SCH (06:00)
[2019-08-31 09:25] LABS: Basophils % (A) 1 %; Eosinophils # (A) 0.3 k/uL (0-0.7); Eosinophils % (A) 5 %; HCT 37.3 % (39.0-53.0); HGB 12.3 gm/dL (13.0-17.5); Lymphocytes # (A) 1.2 k/uL (1.0-4.8); Lymphocytes % (A) 20 %; MCH 31.8 pg (25.0-35.0); MCV 96.5 fL (80.0-100.0); Mean Platelet Volume 7.7; Monocytes # (A) 0.4 k/uL (0-1.0); Monocytes % (A) 7 %; Neutrophils % (A) 65 %; Platelet Count 143 k/uL (150-450); RBC 3.87 m/uL (4.30-5.90); RDW 13.7 % (11.5-15.5); WBC 6.2 k/uL (3.8-10.6)
[2019-08-31 09:29] LABS: Albumin 3.2 g/dL (3.5-5.0); Calcium 8.6 mg/dL (8.4-10.2); Potassium 4.9 mmol/L (3.5-5.1); Total Bilirubin 0.8 mg/dL (0.2-1.3); Total Protein 5.5 g/dL (6.3-8.2)
[2019-08-31] MEDS: PANTOPRAZOLE 40 MG/10 ML VIAL IV SCH (09:59)
--- NOTE | 2019-08-31 15:18 | NM ---
"EXAMINATION TYPE: NM hepatobiliary wo EF DATE OF EXAM: 08/31/2019 COMPARISON: CT and ultrasound from one day earlier. HISTORY: Abdominal pain. TECHNIQUE: After the intravenous administration of 5.01 mCi Tc 99m Mebrofenin hepatobiliary scintigra phy is performed. Immediate images post injection. FINDINGS: There is satisfactory initial accumulation of radiotracer by the liver. Small bowel activity noted wi thin 15 minutes. Gallbladder uptake not visualized even after running exam up to 120 minutes. All ra diotracer is essentially removed from liver at this point. IMPRESSION: Scintigraphic findings are consistent with acute cholecystitis and correlate with recent CT. Surgical exploration is advised. A [place] level critical message alert has been initiated for Pato Bruno via the [employer] | Critical Results System on 08/31/2019 3:16 PM. This message alert has been sent to Pato perry the preferences provided by the clinician for the receipt of Radiology Critical Findings. Message I [id number]."
--- NOTE | 2019-08-31 15:54 | P.GSCN ---
History of Present Illness Consult date: 08/31/19 Reason for Consult: abdominal pain History of present illness: this is an 79-year-old male who presents emergency room with complaints of abdom inal pain. Patient states that he's had approximate 1 month history of intermittent abdominal pain. He states his pain after he eats greasy or fried foods. Patient underwent CAT scan and ultrasound in the emergency room. Patient is evidence of a gallbladder mass or inflammation. His HIDA scan shows nonvisualization of the gallbladder suggestive of acute cholecystitis with cystic duct obstruction. Patient apparently ate some food this morning prior to his HIDA scan had abdominal pain per his . Currently he appears to be comfortable. Past Medical History Past Medical History: Coronary Artery Disease (CAD), Cancer, Hyperlipidemia, Hypertension, Thyroid Disorder Additional Past Medical History / Comment(s): skin ca, basal cell History of Any Multi-Drug Resistant Organisms: None Reported Past Surgical History: Appendectomy, Heart Catheterization With Stent, Tonsillec nasra Additional Past Surgical History / Comment(s): bladder - blood tumor, bladder repair, melanoma and graft. mastoidectomy left ear [place] Past Anesthesia/Blood Transfusion Reactions: No Reported Reaction Date of Last Stent Placement:: 08/01/2019 Past Psychological History: No Psychological Hx Reported Smoking Status: Former smoker Past Alcohol Use History: None Reported Past Drug Use History: None Reported Additional Drug Use History / Comment(s): breast ca - Past Family History Mother Family Medical History: Cancer Sister(s) Family Medical History: Cancer Additional Family Medical History / Comment(s): vaginal Medications and Allergies Home Medications Medication Instructions Recorded Confirmed Type Aspirin [Adult Low Dose Aspirin EC] 81 mg PO DAILY 02/24/18 08/30/19 History Levothyroxine Sodium [Synthroid] 100 mcg PO DAILY 02/24/18 08/30/19 History Atorvastatin [Lipitor] 40 mg PO DAILY #30 tab 08/03/19 08/30/19 Rx Clopidogrel [Plavix] 75 mg PO DAILY #30 tab 08/03/19 08/30/19 Rx Lisinopril [Zestril] 5 mg PO DAILY #30 tab 08/03/19 08/30/19 Rx Metoprolol Tartrate [Lopressor] 25 mg PO BID #60 tab 08/03/19 08/30/19 Rx Nitroglycerin Sl Tabs [Nitrostat] 0.4 mg SUBLINGUAL Q5M PRN #25 tab 08/03/19 08/30/19 Rx guaiFENesin [Mucinex] 1,200 mg PO Q6H PRN 08/30/19 08/30/19 History Allergies Allergy/AdvReac Type Severity Reaction Status Date / Time erythromycin base Allergy Unknown Verified 08/30/19 16:59 Penicillins Allergy Unknown Verified 08/30/19 16:59 Sulfa (Sulfonamide Allergy Unknown Verified 08/30/19 16:59 Antibiotics) Iodine and Iodide Containing AdvReac decrease Verified 08/30/19 16:59 Produc kidney function Surgical - Exam Vital Signs Temp Pulse Resp BP Pulse Ox 97.7 F 56 L 18 109/67 96 08/30/19 12:37 08/30/19 12:37 08/30/19 12:37 08/30/19 12:37 08/30/19 12:37 - General well developed, well nourished, no distress - Eyes PERRL - ENT normal pinna - Neck no masses - Respiratory normal expansion - Cardiovascular Rhythm: regular - Abdomen mild right upper quadrant tenderness Abdomen: soft Results - Labs 08/31/19 08:42 08/31/19 08:42 Abnormal Lab Results - Last 24 Hours (Table) 08/30/19 08/31/19 08/31/19 Range/Units 16:15 08:42 08:42 RBC 3.87 L (4.30-5.90) m/uL Hgb 12.3 L (13.0-17.5) gm/dL Hct 37.3 L (39.0-53.0) % Plt Count 143 L (150-450) k/uL Chloride 110 H (98-107) mmol/L Creatinine 1.30 H (0.66-1.25) mg/dL Plasma Lactic Acid Raymundo <0.5 L (0.7-2.0) mmol/L ALT 56 H (4-49) U/L Total Protein 5.5 L (6.3-8.2) g/dL Albumin 3.2 L (3.5-5.0) g/dL Diabetes panel 08/31/19 Range/Units 08:42 Sodium 142 (137-145) mmol/L Potassium 4.9 (3.5-5.1) mmol/L Chloride 110 H (98-107) mmol/L Carbon Dioxide 26 (22-30) mmol/L BUN 19 (9-20) mg/dL Creatinine 1.30 H (0.66-1.25) mg/dL Glucose 86 (74-99) mg/dL Calcium 8.6 (8.4-10.2) mg/dL AST 38 (17-59) U/L ALT 56 H (4-49) U/L Alkaline Phosphatase 104 (38-126) U/L Total Protein 5.5 L (6.3-8.2) g/dL Albumin 3.2 L (3.5-5.0) g/dL Calcium panel 08/31/19 Range/Units 08:42 Calcium 8.6 (8.4-10.2) mg/dL Albumin 3.2 L (3.5-5.0) g/dL Pituitary panel 08/31/19 Range/Units 08:42 Sodium 142 (137-145) mmol/L Potassium 4.9 (3.5-5.1) mmol/L Chloride 110 H (98-107) mmol/L Carbon Dioxide 26 (22-30) mmol/L BUN 19 (9-20) mg/dL Creatinine 1.30 H (0.66-1.25) mg/dL Glucose 86 (74-99) mg/dL Calcium 8.6 (8.4-10.2) mg/dL Adrenal panel 08/31/19 Range/Units 08:42 Sodium 142 (137-145) mmol/L Potassium 4.9 (3.5-5.1) mmol/L Chloride 110 H (98-107) mmol/L Carbon Dioxide 26 (22-30) mmol/L BUN 19 (9-20) mg/dL Creatinine 1.30 H (0.66-1.25) mg/dL Glucose 86 (74-99) mg/dL Calcium 8.6 (8.4-10.2) mg/dL Total Bilirubin 0.8 (0.2-1.3) mg/dL AST 38 (17-59) U/L ALT 56 H (4-49) U/L Alkaline Phosphatase 104 (38-126) U/L Total Protein 5.5 L (6.3-8.2) g/dL Albumin 3.2 L (3.5-5.0) g/dL - Imaging CT scan - abdomen: report reviewed (gallbladder wall mass, inflammation) EKG: report reviewed (cystic duct obstruction suggestive acute cholecystitis on HIDA scan) Assessment and Plan Assessment: acute cholecystitis, possible gallbladder wall mass. Patient will need to undergo laparoscopic ostectomy. The patient has had recent cardiac stent placement. We will consult cardiology prior to surgery. If he is given clearance he'll undergo laparoscopic ostectomy in the a.m.
--- NOTE | 2019-08-31 16:17 | P.HPIM ---
History of Present Illness H&P Date: 08/31/19 69 years old male patient of Dr. Askew with past medical history of hyperlipidemia, hypertension, hypothyroidism, coronary artery disease status post stenting of RCA. According to the patient he was having epigastric pain for the past 1 month and had an outpatient stress test which suggested reversible defect in the apex of left ventricle for which patient underwent heart cath and was taken for stenting of the RCA by Dr. Shannon. Patient had ongoing epigastric pain since PCI but attributed it to the medications. patient was in [facility] 2 days ago where he had severe pain in his right upper quadrant area and epigastric area associated with nausea [place] highway, he pulled off his car and called cardiology. Since there was no improvement in his pain patient decided to come to the ER on Thursday morning. On evaluation in the ER, patient is afebrilepulse of 62 respiratory rate 16 blood pressure 108/64on evaluation of labs patient has a WBC of 6.2 hemoglobin 12.3 chloride 110 creatinine was 1.49 on admission improved to 1.3 on repeat testing liver enzymes were completely, except for AST of 91 that improved to 56 this morning lactic acid was normal patient was given 1 dose of cefepime and was admitted. 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 Gallbladder ultrasound also was positive forinflammation of the gallbladder concerning for cholecystitis withphlegmonous change or early abscess of the liver, gallbladder carcinoma with invasion of the liver or hepatic new present with adjacent gallbladder wall thickening secondary to hepatic cellular disease. HIDA scan was done that was consistent with acute cholecystitis, antibiotics switched to ceftriaxone and Flagyl. Patient to be nothing by mouth after midnight. Cardiology consult placed Review of Systems Constitutional: Denies chills, Denies fever, Denies lethargy, Denies malaise, Denies poor appetite, Denies weakness, Denies weight loss Eyes: denies decreased vision, denies diplopia, denies discharge, denies pain Ears: deny: decreased hearing Ears, nose, mouth and throat: Denies dental pain, Denies headache, Denies nasal discharge, Denies nose pain Cardiovascular: Denies chest pain, Denies decreased exercise tolerance, Denies edema, Denies high blood pressure, Denies irregular heart beat, Denies palpitations, Denies paroxysmal nocturnal dyspnea, Denies rapid heart beat, Denies shortness of breath Respiratory: Denies congestion, Denies cough, Denies cough with sputum, Denies dyspnea, Denies home oxygen, Denies wheezing Gastrointestinal: endorses abdominal pain, Denies change in bowel habits, Denies coffee ground emesis, Denies early satiety, Denies excessive gas, Denies heartburn, Denies hematemesis, Denies hematochezia, Denies loss of appetite, endorses nausea Genitourinary: Denies dysuria, Denies flank pain, Denies kidney stones, Denies menorrhagia, Denies urgency, Denies urinary frequency Musculoskeletal: Denies gait dysfunction, Denies limitation of motion, Denies morning stiffness, Denies muscle cramps Integumentary: Denies rash, Denies wounds, Denies brittle nails, Denies change in hair/nails, Denies darkening of skin Neurological: Denies balance difficulties, Denies change in speech, Denies double vision, Denies gait dysfunction, Denies loss of vision, Denies motor disturbance, Denies numbness, Denies paralysis, Denies paresthesias, Denies seizures Psychiatric: Denies anxiety, Denies depression Endocrine: Denies excessive sweating, Denies excessive thirst, Denies high blood sugars, Denies palpitations Hematologic/Lymphatic: Denies easy bruising, Denies lymphadenopathy Past Medical History Past Medical History: Coronary Artery Disease (CAD), Cancer, Hyperlipidemia, Hypertension, Thyroid Disorder Additional Past Medical History / Comment(s): skin ca, basal cell History of Any Multi-Drug Resistant Organisms: None Reported Past Surgical History: Appendectomy, Heart Catheterization With Stent, Tonsillectomy Additional Past Surgical History / Comment(s): bladder - blood tumor, bladder repair, melanoma and graft. mastoidectomy left ear [place] Past Anesthesia/Blood Transfusion Reactions: No Reported Reaction Date of Last Stent Placement:: 08/01/2019 Past Psychological History: No Psychological Hx Reported Smoking Status: Former smoker Past Alcohol Use History: None Reported Past Drug Use History: None Reported Additional Drug Use History / Comment(s): breast ca - Past Family History Mother Family Medical History: Cancer Sister(s) Family Medical History: Cancer Additional Family Medical History / Comment(s): vaginal Medications and Allergies Home Medications Medication Instructions Recorded Confirmed Type Aspirin [Adult Low Dose Aspirin EC] 81 mg PO DAILY 02/24/18 08/30/19 History Levothyroxine Sodium [Synthroid] 100 mcg PO DAILY 02/24/18 08/30/19 History Atorvastatin [Lipitor] 40 mg PO DAILY #30 tab 08/03/19 08/30/19 Rx Clopidogrel [Plavix] 75 mg PO DAILY #30 tab 08/03/19 08/30/19 Rx Lisinopril [Zestril] 5 mg PO DAILY #30 tab 08/03/19 08/30/19 Rx Metoprolol Tartrate [Lopressor] 25 mg PO BID #60 tab 08/03/19 08/30/19 Rx Nitroglycerin Sl Tabs [Nitrostat] 0.4 mg SUBLINGUAL Q5M PRN #25 tab 08/03/19 08/30/19 Rx guaiFENesin [Mucinex] 1,200 mg PO Q6H PRN 08/30/19 08/30/19 History Allergies Allergy/AdvReac Type Severity Reaction Status Date / Time erythromycin base Allergy Unknown Verified 08/30/19 16:59 Penicillins Allergy Unknown Verified 08/30/19 16:59 Sulfa (Sulfonamide Allergy Unknown Verified 08/30/19 16:59 Antibiotics) Iodine and Iodide Containing AdvReac decrease Verified 08/30/19 16:59 Produc kidney function Physical Exam Vitals: Vital Signs Temp Pulse Pulse Resp BP BP Pulse Ox 08/31/19 16:00 62 17 08/31/19 12:05 97.7 F 65 17 127/58 97 08/31/19 08:00 65 17 08/31/19 05:00 98.1 F 62 16 108/64 94 L 08/31/19 00:00 16 08/30/19 19:12 16 08/30/19 16:26 98.0 F 57 L 16 114/55 99 Intake and Output 08/31/19 08/31/19 08/31/19 06:59 14:59 22:59 Intake Total 590 1760 Balance 590 1760 Intake: Intake, IV Titration 1040 Amount Sodium Chloride 0.9% 1, 1040 000 ml @ 130 mls/hr IV . Q7H42M [facility] Rx#:[id number] Oral 590 720 Other: Voiding Method Toilet Toilet # Voids 3 4 4 - Constitutional General appearance: cooperative, no acute distress, obese - EENT Eyes: anicteric sclerae, PERRLA, normal appearance ENT: hearing grossly normal - Neck Neck: no lymphadenopathy, normal ROM, no other, no rigidity, no stridor, no thyromegaly - Respiratory Respiratory: bilateral: CTA, negative: diminished, dullness, rales, rhonchi - Cardiovascular Rhythm: regular Heart sounds: normal: S1, S2 Abnormal Heart Sounds: no systolic murmur, no diastolic murmur, no rub, no S3 Gallop, no S4 Gallop, no click, no other - Gastrointestinal General gastrointestinal: normal bowel sounds, soft mild epigastric tenderness - Integumentary Integumentary: no rash - Neurologic Neurologic: CNII-XII intact - Musculoskeletal Musculoskeletal: gait normal, strength equal bilaterally - Psychiatric Psychiatric: A&O x's 3, appropriate affect Results CBC & Chem 7: 08/31/19 08:42 08/31/19 08:42 Labs: Abnormal Lab Results - Last 24 Hours (Table) 08/30/19 08/31/19 08/31/19 Range/Units 16:15 08:42 08:42 RBC 3.87 L (4.30-5.90) m/uL Hgb 12.3 L (13.0-17.5) gm/dL Hct 37.3 L (39.0-53.0) % Plt Count 143 L (150-450) k/uL Chloride 110 H (98-107) mmol/L Creatinine 1.30 H (0.66-1.25) mg/dL Plasma Lactic Acid Raymundo <0.5 L (0.7-2.0) mmol/L ALT 56 H (4-49) U/L Total Protein 5.5 L (6.3-8.2) g/dL Albumin 3.2 L (3.5-5.0) g/dL Thrombosis Risk Factor Assmnt - DVT/VTE Prophylaxis DVT/VTE Prophylaxis: Pharmacologic Prophylaxis ordered - Choose All That Apply Any of the Below Risk Factors Present?: Yes Each Factor Represents 1 point: Swollen legs (current) Each Risk Factor Represents 3 Points: Age 75 years or older Thrombosis Risk Factor Assessment Total Risk Factor Score: 4 Thrombosis Risk Factor Assessment Level: Moderate Risk Assessment and Plan Plan: #1 epigastric pain secondary to acute cholecystitis confirmed on HIDA scan. CT abdomen concerning for gallbladder mass versus hepatic mass. alpha Fetoprotein and CA 19/9 ordered. GI and surgery consulted. Tentative plans for surgery tomorrow though patient had a recent coronary artery stent disease and is on Plavix. Cardiology consulted for clearance #2 history of coronary artery disease stenting of RCA on 2018 hold has aspirin hold Plavix continue Lipitor lisinopril and metoprolol #3 hyperlipidemia continue atorvastatin 20 mg by mouth daily #4 hypothyroidism continue 100 g by mouth daily #5 Code status full code #6 DVT prophylaxis with heparin 5000 every 12 #7 disposition anticipate 1-2 inpatient nights
[2019-08-31] MEDS: metroNIDAZOLE-NS PMX 500 MG in SALINE 1 100ML.BAG IVPB SCH (17:38)
[2019-08-31] MEDS: METOPROLOL TARTRATE 25 MG TAB PO SCH (20:50)
[2019-08-31] MEDS: HEPARIN SODIUM,PORCINE 5,000 UNIT/ML 1 ML VIAL SQ SCH (20:50)
[2019-09-01] MEDS: metroNIDAZOLE-NS PMX 500 MG in SALINE 1 100ML.BAG IVPB SCH ×3 (00:36→18:32)
[2019-09-01] MEDS: LEVOTHYROXINE 100 MCG TAB PO SCH (06:09)
--- NOTE | 2019-09-01 08:40 | P.CRDCN ---
History of Present Illness History of present illness: HISTORY OF PRESENTING ILLNESS This is a pleasant 79-year-old male past medical history significant for coronary artery disease status post recent PCI, hypertension, dyslipidemia, basal cell skin cancer and obesity. He follows in the office with Dr. Summers. We have been asked to see in consultation for preoperative evaluation. He presented to the hospital with abdominal pain after eating. Diagnostic imaging revealed an abnormal gallbladder and associated liver considerations include gallbladder carcinoma, metastatic disease. He underwent a HIDA scan with findings consistent with acute cholecystitis. He is scheduled to undergo laparoscopic cholecystectomy today with Dr. Yuan pending her evaluation. He is seen and examined resting comfortably lying flat in bed in no acute distress. He denies symptoms of chest discomfort, shortness of breath, dizziness or palpitations. His last dose of Plavix was August 30. Laboratory data reviewed, WBC 6.2, hemoglobin 12.3, platelets 143, sodium 142, potassium 4.9, creatinine 1.3, ALT 56, CA 19 1510. Current cardiac medications include aspirin 81 mg daily, Plavix 75 mg daily, atorvastatin 40 mg daily, lisinopril 5 mg daily and Lopressor 25 mg twice a day. On August 02 he underwent cardiac catheterization and underwent successful PCI with a 4 x 18 drug-eluting stent to the RCA. Most recent echocardiogram in the office June [id number] LV systolic function ejection fraction 55%, moderate mitral regurgitation and mild aortic regurgitation. REVIEW OF SYSTEMS At the time of my exam: CONSTITUTIONAL: Denies fever or chills. CARDIOVASCULAR: Denies chest pain, shortness of breath, orthopnea, PND or palpitations. RESPIRATORY: Denies cough. GASTROINTESTINAL: Denies abdominal pain, diarrhea, constipation, nausea or vomiting. MUSCULOSKELETAL: Denies myalgias. NEUROLOGIC: Denies numbness, tingling or weakness. ENDOCRINE: Denies fatigue, weight change, polydipsia or polyurina. GENITOURINARY: Denies burning, hematuria or urgency with micturation. HEMATOLOGIC: Denies history of anemia or bleeding. PHYSICAL EXAMINATION Blood pressure 117/56 heart rate 59 afebrile and maintaining oxygen saturation on room air. CONSTITUTIONAL: No apparent distress. Obese. HEENT: Head is normocephalic. Pupils are equal, round. Sclerae anicteric. Mucous membranes of the mouth are moist. No JVD. No carotid bruit. CHEST EXAMINATION: Lungs are clear to auscultation. No chest wall tenderness is noted on palpation or with deep breathing. HEART EXAMINATION: Regular rate and rhythm. S1, S2 heard. No murmurs, gallops or rub. ABDOMEN: Soft, nontender. Positive bowel sounds. EXTREMITIES: 2+ peripheral pulses, no lower extremity edema and no calf tenderness. NEUROLOGIC EXAMINATION: Patient is awake, alert and oriented x3. ASSESSMENT Acute cholecystitis with questionable liver abscess and possible gallbladder carcinoma Coronary artery disease s/p recent PCI on dual anti-platelet therapy Hypertension Dyslipidemia Obesity, BMI 30 PLAN He is an increased risk for in-stent restenosis given his stent placement one month ago. However, his stent is quite large at 4.0x18 so the liklihood is less likely. He is also at an increased risk for bleeding given his last dose of plavix 08/30/19, this will stay in his system for 5 days. Given all these factors he is a moderate to high risk to undergo surgical intervention however there is no absolute contraindication. This has been communicated to Linda Dickinson NP for Dr. Bruno as well as the patients nurse. Plavix should be resumed as soon as possible after surgery. We will continue to follow and make recommendations accordingly. Thank you kindly for this consultation. Nurse Practitioner note has been reviewed, I agree with a documented findings and plan of care. Patient was seen and examined. Past Medical History Past Medical History: Coronary Artery Disease (CAD), Cancer, Hyperlipidemia, Hypertension, Thyroid Disorder Additional Past Medical History / Comment(s): skin ca, basal cell History of Any Multi-Drug Resistant Organisms: None Reported Past Surgical History: Appendectomy, Heart Catheterization With Stent, Tonsillectomy Additional Past Surgical History / Comment(s): bladder - blood tumor, bladder repair, melanoma and graft. mastoidectomy left ear [place] Past Anesthesia/Blood Transfusion Reactions: No Reported Reaction Date of Last Stent Placement:: 08/01/2019 Past Psychological History: No Psychological Hx Reported Smoking Status: Former smoker Past Alcohol Use History: None Reported Past Drug Use History: None Reported Additional Drug Use History / Comment(s): breast ca - Past Family History Mother Family Medical History: Cancer Sister(s) Family Medical History: Cancer Additional Family Medical History / Comment(s): vaginal Medications and Allergies Home Medications Medication Instructions Recorded Confirmed Type Aspirin [Adult Low Dose Aspirin EC] 81 mg PO DAILY 02/24/18 08/30/19 History Levothyroxine Sodium [Synthroid] 100 mcg PO DAILY 02/24/18 08/30/19 History Atorvastatin [Lipitor] 40 mg PO DAILY #30 tab 08/03/19 08/30/19 Rx Clopidogrel [Plavix] 75 mg PO DAILY #30 tab 08/03/19 08/30/19 Rx Lisinopril [Zestril] 5 mg PO DAILY #30 tab 08/03/19 08/30/19 Rx Metoprolol Tartrate [Lopressor] 25 mg PO BID #60 tab 08/03/19 08/30/19 Rx Nitroglycerin Sl Tabs [Nitrostat] 0.4 mg SUBLINGUAL Q5M PRN #25 tab 08/03/19 08/30/19 Rx guaiFENesin [Mucinex] 1,200 mg PO Q6H PRN 08/30/19 08/30/19 History Allergies Allergy/AdvReac Type Severity Reaction Status Date / Time erythromycin base Allergy Unknown Verified 08/30/19 16:59 Penicillins Allergy Unknown Verified 08/30/19 16:59 Sulfa (Sulfonamide Allergy Unknown Verified 08/30/19 16:59 Antibiotics) Iodine and Iodide Containing AdvReac decrease Verified 08/30/19 16:59 Produc kidney function Physical Exam Vitals: Vital Signs Temp Pulse Resp BP Pulse Ox 09/01/19 05:00 98.1 F 59 L 17 117/56 91 L 08/31/19 20:46 98.2 F 60 18 129/69 94 L 08/31/19 16:00 62 17 08/31/19 12:05 97.7 F 65 17 127/58 97 Intake and Output 08/31/19 09/01/19 09/01/19 22:59 06:59 14:59 Intake Total 600 1530 Balance 600 1530 Intake: Intake, IV Titration 1530 Amount Sodium Chloride 0.9% 1, 1430 000 ml @ 130 mls/hr IV . Q7H42M [facility] Rx#:[id number] metroNIDAZOLE-NS PMX 500 100 mg In Saline 1 100ml.bag @ 100 mls/hr IVPB Q8HR [facility] Rx#:[id number] Oral 600 Other: Voiding Method Toilet Toilet # Voids 1 1 Results 08/31/19 08:42 08/31/19 08:42 Cardiac Enzymes 08/31/19 Range/Units 08:42 AST 38 (17-59) U/L CBC 08/31/19 Range/Units 08:42 WBC 6.2 (3.8-10.6) k/uL RBC 3.87 L (4.30-5.90) m/uL Hgb 12.3 L (13.0-17.5) gm/dL Hct 37.3 L (39.0-53.0) % Plt Count 143 L (150-450) k/uL Comprehensive Metabolic Panel 08/31/19 Range/Units 08:42 Sodium 142 (137-145) mmol/L Potassium 4.9 (3.5-5.1) mmol/L Chloride 110 H (98-107) mmol/L Carbon Dioxide 26 (22-30) mmol/L BUN 19 (9-20) mg/dL Creatinine 1.30 H (0.66-1.25) mg/dL Glucose 86 (74-99) mg/dL Calcium 8.6 (8.4-10.2) mg/dL AST 38 (17-59) U/L ALT 56 H (4-49) U/L Alkaline Phosphatase 104 (38-126) U/L Total Protein 5.5 L (6.3-8.2) g/dL Albumin 3.2 L (3.5-5.0) g/dL Current Medications Generic Name Dose Route Start Last Admin Trade Name Freq PRN Reason Stop Dose Admin Atorvastatin Calcium 40 mg 09/01/19 09:00 Lipitor PO DAILY GEORGIE Heparin Sodium (Porcine) 5,000 unit 08/31/19 21:00 08/31/19 20:50 Heparin SQ Not Given Q12HR GEORGIE Sodium Chloride 1,000 mls @ 130 mls/hr 08/30/19 16:00 08/31/19 20:53 Saline 0.9% IV 130 mls/hr .Q7H42M GEORGIE Administration Ceftriaxone Sodium 2 gm/ 50 mls @ 100 mls/hr 09/01/19 09:00 Sodium Chloride IVPB Q24HR GEORGIE Metronidazole 500 mg/ IV 100 mls @ 100 mls/hr 08/31/19 17:00 09/01/19 00:36 Solution IVPB 100 mls/hr Q8HR [facility]IE Administration Levothyroxine Sodium 100 mcg 09/01/19 06:30 09/01/19 06:09 Synthroid PO 100 mcg DAILY@0630 GEORGIE Administration Lisinopril 5 mg 09/01/19 09:00 Zestril PO DAILY GEORGIE Metoprolol Tartrate 25 mg 08/31/19 21:00 08/31/19 20:50 Lopressor PO 25 mg BID GEORGIE Administration Morphine Sulfate 4 mg 08/30/19 15:59 Morphine Sulfate (Inj) IV Q4HR PRN Severe Pain Naloxone HCl 0.2 mg 08/30/19 15:59 Narcan IV Q2M PRN Opioid Reversal Ondansetron HCl 4 mg 08/30/19 15:59 Zofran IVP Q8HR PRN Nausea And Vomiting Pantoprazole Sodium 40 mg 08/31/19 09:00 08/31/19 09:59 Protonix IV 40 mg DAILY GEORGIE Administration Intake and Output 08/31/19 09/01/19 09/01/19 22:59 06:59 14:59 Intake Total 600 1530 Balance 600 1530 Intake: Intake, IV Titration 1530 Amount Sodium Chloride 0.9% 1, 1430 000 ml @ 130 mls/hr IV . Q7H42M [facility] Rx#:[id number] metroNIDAZOLE-NS PMX 500 100 mg In Saline 1 100ml.bag @ 100 mls/hr IVPB Q8HR [facility] Rx#:[id number] Oral 600 Other: Voiding Method Toilet Toilet # Voids 1 1 08/31/19 08:42 08/31/19 08:42
[2019-09-01] MEDS: SODIUM CHLORIDE 0.9% 1,000 ML IV SCH ×2 (09:03→18:32)
[2019-09-01] MEDS: PANTOPRAZOLE 40 MG/10 ML VIAL IV SCH (09:09)
[2019-09-01] MEDS: METOPROLOL TARTRATE 25 MG TAB PO SCH ×2 (09:10→21:58)
[2019-09-01] MEDS: HEPARIN SODIUM,PORCINE 5,000 UNIT/ML 1 ML VIAL SQ SCH ×2 (09:10→21:57)
[2019-09-01] MEDS: LISINOPRIL 5 MG TAB PO SCH (09:10)
[2019-09-01] MEDS: ATORVASTATIN 40 MG TAB PO SCH (09:10)
[2019-09-01] MEDS ORDERED: IV FLUID CONTINUATION 1,000 ML IV ONE (09:45)
[2019-09-01] MEDS: ONDANSETRON 4 MG/2 ML VIAL IVP PRN (09:55)
[2019-09-01] MEDS ORDERED: BUPIVACAINE (PF) 0.25% 30 ML VIAL SQ ONE ×3 (10:29→11:09)
[2019-09-01] MEDS ORDERED: fentaNYL (PF) 50 MCG/ML 2 ML AMP ONE (10:40)
[2019-09-01] MEDS ORDERED: ROCURONIUM BROMIDE 10 MG/ML 10 ML VIAL IV ONE (10:40)
[2019-09-01] MEDS ORDERED: GLYCOPYRROLATE 0.2 MG/ML 2 ML VIAL ONE (10:40)
[2019-09-01] MEDS ORDERED: PROPOFOL 10 MG/ML 20 ML VIAL IV ONE (10:40)
[2019-09-01] MEDS ORDERED: KETOROLAC 30 MG/ML 1 ML VIAL ONE (10:40)
[2019-09-01] MEDS ORDERED: MIDAZOLAM 2 MG/2 ML VIAL ONE (10:40)
[2019-09-01] MEDS ORDERED: SUCCINYLCHOLINE CHLORIDE 100 MG/5 ML SYR IV ONE (10:40)
[2019-09-01] MEDS ORDERED: NEOSTIGMINE 1 MG/ML 10 ML VIAL ONE (10:40)
[2019-09-01] MEDS ORDERED: LIDOCAINE 1% INJ 10MG/ML (20 ML MDV) ONE (10:40)
[2019-09-01] MEDS ORDERED: LACTATED RINGERS 1,000 ML IV ONE ×2 (11:25)
--- NOTE | 2019-09-01 12:15 | P.OP ---
Date of Procedure: 09/01/19 Preoperative Diagnosis: Cholecystitis Postoperative Diagnosis: Gallbladder mass suspicious for gallbladder cancer with invasion into right lobe of liver Procedure(s) Performed: Diagnostic laparoscopy Open cholecystectomy Liver biopsy Anesthesia: KADI Surgeon: Pato Bruno Estimated Blood Loss (ml): 50 Pathology: other (Gallbladder, liver biopsy) Condition: stable Disposition: PACU Description of Procedure: The patient was placed on the operating table. The patient received a general endotracheal tube anesthesia. The patients abdomen was prepped and draped in the usual sterile fashion. Through an infraumbilical stab incision, the fascia of the anterior abdominal wall was grasped with a pair of Kochers and then the Veress needle was placed in the peritoneal cavity. Position of the Veress needle was confirmed with positive drop test. The abdomen was then insufflated. After adequate insufflation, the 10 mm trocar was placed in the peritoneal cavity. Following this the laparoscope was placed in the peritoneal cavity. The patient was placed in the head-up, right side up position and then a 5 mm trocar was placed in the right lateral and right subcostal position under direct visualization. A 8 mm trocar was placed in the epigastric position. The gallbladder was gently retracted. There was an obvious liver mass next to the gallbladder. The gallbladder was very firm. It had a peculiar appearance. There was a mass within the gallbladder. The cystic duct was attempted to be identified. There is significant inflammatory response around the socorro hepatis. At this point decided to perform an open cholecystectomy. The trochars withdrawn. A standard right subcostal incision was made. Using left cautery the abdominal wall was divided. The Blodgett retractors placed a wound. The gallbladder was visualized. The gallbladder was significantly inflamed and was hard like a rock. Using gentle traction and left cautery the gallbladder was removed from the liver bed. The gallbladder was taken down in a dome down fashion. The cystic duct was identified. The cystic duct was seen entering the common bile duct. Cyst duct was then suture ligated with 0 silk tie. The cystic duct was then transected. The cystic artery was then ligated with 0 silk tie and then divided. The specimen sent to pathology. The patient had a mass next to the gallbladder on the right lobe of liver. This was biopsied by performing an incisional biopsy was 11 blade the specimen sent to pathology. The liver bed inspected for hemostasis. There is no significant bleeding seen the abdomen was irrigated a KASEY drains was the gallbladder fossa and brought through separate stab incision in the abdominal wall was closed with looped #1 PDS suture. Skin was closed hanh. Patient top she will was sent to recovery room in stable condition.
[2019-09-01] MEDS ORDERED: HYDROmorphone 1 MG/ML 1 ML SYRINGE IVP ONE ×2 (12:30→12:45)
[2019-09-01] MEDS ORDERED: ONDANSETRON 4 MG/2 ML VIAL IVP ONE (12:30)
--- NOTE | 2019-09-01 12:56 | P.CONS ---
History of Present Illness - Reason for Consult Consult date: 08/31/19 Abdominal pain Requesting physician: Meron Reyes - Chief Complaint Abdominal pain - History of Present Illness 79-year-old male with medical history significant for hyperlipidemia, hypertension, hypothyroidism and coronary artery disease status post prior coronary stenting who presents to the hospital with complaints of abdominal pain. The patient reports intermittent episodes of epigastric abdominal pain occurring over the past month. However prior to presentation described pain in the epigastric region which was sharp and severe causing him to double over. He reports that the pain radiated down into his abdomen. He reports associated nausea without vomiting. He felt that there may be an association of his symptoms with a change in her medication which occurred in July after being started on Plavix therapy. On presentation to the hospital the patient underwent computed tomography scan of the abdomen with findings of a soft tissue attenuation mass in the area of the gallbladder and liver. Currently seen lying in bed he is reporting abdominal pain is still present but improved. He is been seen by the surgical service with tentative plan for laparoscopy tomorrow. Review of Systems REVIEW OF SYSTEMS: CONSTITUTIONAL: Denies any fevers, chills, weight change or fatigue. CARDIOVASCULAR: Denies any chest pain, palpitations high or low blood pressures RESPIRATORY: Denies any shortness of breath, hemoptysis or cough. GENITOURINARY: No dysuria or hematuria. MUSCULOSKELETAL: No weakness reported. SKIN: Denies any new rashes or lesions, jaundice or pallor. PSYCHIATRIC: Denies any depression or anxiety. NEUROLOGY: Denies headache, denies any new focal deficits. EARS/NOSE/THROAT: No recent hearing change, congestion, nasal discharge or sore throat. EYES: No pain in eyes, discharge or change in vision. GASTROINTESTINAL: As per HPI. Past Medical History Past Medical History: Coronary Artery Disease (CAD), Cancer, Hyperlipidemia, Hypertension, Thyroid Disorder Additional Past Medical History / Comment(s): skin ca, basal cell History of Any Multi-Drug Resistant Organisms: None Reported Past Surgical History: Appendectomy, Heart Catheterization With Stent, Tonsillectomy Additional Past Surgical History / Comment(s): bladder - blood tumor, bladder repair, melanoma and graft. mastoidectomy left ear LYTTON Past Anesthesia/Blood Transfusion Reactions: No Reported Reaction Date of Last Stent Placement:: 08/01/2019 Past Psychological History: No Psychological Hx Reported Smoking Status: Former smoker Past Alcohol Use History: None Reported Past Drug Use History: None Reported Additional Drug Use History / Comment(s): breast ca - Past Family History Mother Family Medical History: Cancer Sister(s) Family Medical History: Cancer Additional Family Medical History / Comment(s): vaginal Medications and Allergies Home Medications Medication Instructions Recorded Confirmed Type Aspirin [Adult Low Dose Aspirin EC] 81 mg PO DAILY 02/24/18 08/30/19 History Levothyroxine Sodium [Synthroid] 100 mcg PO DAILY 02/24/18 08/30/19 History Atorvastatin [Lipitor] 40 mg PO DAILY #30 tab 08/03/19 08/30/19 Rx Clopidogrel [Plavix] 75 mg PO DAILY #30 tab 08/03/19 08/30/19 Rx Lisinopril [Zestril] 5 mg PO DAILY #30 tab 08/03/19 08/30/19 Rx Metoprolol Tartrate [Lopressor] 25 mg PO BID #60 tab 08/03/19 08/30/19 Rx Nitroglycerin Sl Tabs [Nitrostat] 0.4 mg SUBLINGUAL Q5M PRN #25 tab 08/03/19 08/30/19 Rx guaiFENesin [Mucinex] 1,200 mg PO Q6H PRN 08/30/19 08/30/19 History Allergies Allergy/AdvReac Type Severity Reaction Status Date / Time erythromycin base Allergy Unknown Verified 08/30/19 16:59 Penicillins Allergy Unknown Verified 08/30/19 16:59 Sulfa (Sulfonamide Allergy Unknown Verified 08/30/19 16:59 Antibiotics) Iodine and Iodide Containing AdvReac decrease Verified 08/30/19 16:59 Produc kidney function Physical Exam Vitals: Vital Signs Temp Pulse Pulse Resp BP BP Pulse Ox 08/31/19 12:05 97.7 F 65 17 127/58 97 08/31/19 05:00 98.1 F 62 16 108/64 94 L 08/31/19 00:00 16 08/30/19 19:12 16 08/30/19 16:26 98.0 F 57 L 16 114/55 99 Intake and Output 08/30/19 08/31/19 08/31/19 22:59 06:59 14:59 Intake Total 260 590 Balance 260 590 Intake: Intake, IV Titration 260 Amount Sodium Chloride 0.9% 1, 260 000 ml @ 130 mls/hr IV . Q7H42M [facility] Rx#:[id number] Oral 0 590 Other: # Voids 1 3 Weight 97.522 kg On physical examination, patient appears comfortable in no apparent distress. HEAD: Normocephalic, atraumatic. EYES: No scleral icterus. No conjunctival injection. MOUTH: No lesions, tongue midline. NECK: Trachea midline, no gross abnormalities. CHEST: Clear to auscultation with no wheezing or rhonchi appreciated. HEART: S1-S2 appreciated. ABDOMEN: Soft, obese, mildly tender to palpation worse in the epigastric region of the abdomen. Bowel sounds are positive. No organomegaly. No guarding or rigidity. EXTREMITIES: No pedal edema. SKIN: No rashes, no jaundice. NEUROLOGIC: Alert and oriented x3. No focal deficits. Results CBC & Chem 7: 08/31/19 08:42 08/31/19 08:42 Labs: Abnormal Lab Results - Last 24 Hours (Table) 08/30/19 08/30/19 08/30/19 Range/Units 13:15 13:15 16:15 RBC (4.30-5.90) m/uL Hgb (13.0-17.5) gm/dL Hct (39.0-53.0) % Plt Count (150-450) k/uL Chloride (98-107) mmol/L BUN 24 H (9-20) mg/dL Creatinine 1.49 H (0.66-1.25) mg/dL Plasma Lactic Acid Raymundo <0.5 L (0.7-2.0) mmol/L ALT 91 H (4-49) U/L Total Protein (6.3-8.2) g/dL Albumin (3.5-5.0) g/dL Ur Leukocyte Esterase Trace H (Negative) Urine Mucus Rare H (None) /hpf 08/31/19 08/31/19 Range/Units 08:42 08:42 RBC 3.87 L (4.30-5.90) m/uL Hgb 12.3 L (13.0-17.5) gm/dL Hct 37.3 L (39.0-53.0) % Plt Count 143 L (150-450) k/uL Chloride 110 H (98-107) mmol/L BUN (9-20) mg/dL Creatinine 1.30 H (0.66-1.25) mg/dL Plasma Lactic Acid Raymundo (0.7-2.0) mmol/L ALT 56 H (4-49) U/L Total Protein 5.5 L (6.3-8.2) g/dL Albumin 3.2 L (3.5-5.0) g/dL Ur Leukocyte Esterase (Negative) Urine Mucus (None) /hpf CT scan - abdomen: report reviewed (computed tomography scan of the abdomen with findings of a hypoattenuating mass in the area of the gallbladder and liver) Assessment and Plan (1) Abdominal pain Narrative/Plan: 79-year-old male presented to the hospital due to complaints of abdominal pain which has been present over the past month and worse prior to presentation. Pain in the epigastric region of his abdomen and severe in nature. The patient reported associated nausea with no vomiting. He had imaging studies with computed tomography scan of the abdomen and ultrasound suggestive of an ill-defined area in the region of the gallbladder and liver with subsequent HIDA scan suspicious for possible cholecystitis. Plan is for upper endoscopy tomorrow for further evaluation. Current Visit: Yes Status: Acute Code(s): R10.9 - UNSPECIFIED ABDOMINAL PAIN SNOMED Code(s): 30376246 (2) Abnormal computed tomography scan Current Visit: Yes Status: Acute Code(s): R93.89 - ABNORMAL FINDINGS ON DX IMAGING OF OTH BODY STRUCTURES SNOMED Code(s): 210813188 Plan: Supportive care Clear liquid diets Appreciate recommendations from surgical service Imaging reviewed Await findings from tentatively planned cholecystectomy tomorrow Continue antibiotic therapy Thank you for allowing us to participate in the care of the patient we will continue to follow
[2019-09-01] MEDS ORDERED: diphenhydrAMINE 50 MG/ML 1 ML VIAL IVP ONE (13:30)
--- NOTE | 2019-09-01 17:11 | P.PN ---
Subjective Progress Note Date: 09/01/19 69 years old male patient of Dr. Askew with past medical history of hyperlipidemia, hypertension, hypothyroidism, coronary artery disease status post stenting of RCA. According to the patient he was having epigastric pain for the past 1 month and had an outpatient stress test which suggested re versible defect in the apex of left ventricle for which patient underwent heart cath and was taken for stenting of the RCA by Dr. Shannon. Patient had ongoing epigastric pain since PCI but attributed it to the medications. patient was in [facility] 2 days ago where he had severe pain in his right upper quadrant area and epigastric area associated with nausea while [place] on highway, he pulled off his car and called cardiology. Since there was no improvement in his pain patient decided to come to the ER on Thursday morning. On evaluation in the ER, patient is afebrilepulse of 62 respiratory rate 16 blood pressure 108/64on evaluation of labs patient has a WBC of 6.2 hemoglobin 12.3 chloride 110 creatinine was 1.49 on admission improved to 1.3 on repeat testing liver enzymes were completely, except for AST of 91 that improved to 56 this morning lactic acid was normal patient was given 1 dose of cefepime and was admitted. 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 Gallbladder ultr asound also was positive forinflammation of the gallbladder concerning for cholecystitis withphlegmonous change or early abscess of the liver, gallbladder carcinoma with invasion of the liver or hepatic new present with adjacent gallbladder wall thickening secondary to hepatic cellular disease. HIDA scan was done that was consistent with acute cholecystitis, antibiotics switched to ceftriaxone and Flagyl. Patient to be nothing by mouth after midnight. Cardiology consult placed 09/01 patient examined bedside postoperatively. Patient did have a gallbladder mass suspicious for gallbladder cancer with invasion into the right lobe of liver. Diagnostic laparoscopy was switched to open cholecystectomy patient tolerated the procedure well ,did have significant amount of painon evaluation. Patient was found to be drowsy, sats were in the 90-91% on 2 L of oxygen with heart rate ranging from 40-250 as patient was sleeping. Patient to be evaluated for sleep study as outpatient.labs including CA 19 - 9 +1510.4. AFP negative biopsy was taken from the liver mass and sent for pathology. Objective - Vital Signs Vital signs: Vital Signs Temp 97.2 F L 12/19/19 12:20 Pulse 50 L 09/01/19 14:53 Resp 20 09/01/19 14:12 BP 122/67 09/01/19 14:53 Pulse Ox 95 09/01/19 14:53 Intake & Output 08/31/19 09/01/19 09/01/19 18:59 06:59 18:59 Intake Total 2360 1530 1650 Output Total 200 Balance 2360 1530 1450 Weight 97.5 kg Intake: IV 1650 Intake, IV Titration 1040 1530 Amount Sodium Chloride 0.9% 1, 1040 1430 000 ml @ 130 mls/hr IV . Q7H42M [facility] Rx#:[id number] metroNIDAZOLE-NS PMX 500 100 mg In Saline 1 100ml.bag @ 100 mls/hr IVPB Q8HR [facility] Rx#:[id number] Oral 1320 Output: Estimated Blood Loss 200 Other: Voiding Method Toilet Toilet Toilet # Voids 4 1 3 - Exam - Constitutional General appearance: cooperative, no acute distress, obese - EENT Eyes: anicteric sclerae, PERRLA, normal appearance ENT: hearing grossly normal - Neck Neck: no lymphadenopathy, normal ROM, no other, no rigidity, no stridor, no thyromegaly - Respiratory Respiratory: bilateral: CTA, negative: diminished, dullness, rales, rhonchi - Cardiovascular Rhythm: regular Heart sounds: normal: S1, S2 Abnormal Heart Sounds: no systolic murmur, no diastolic murmur, no rub, no S3 Gallop, no S4 Gallop, no click, no other - Gastrointestinal General gastrointestinal: normal bowel sounds, soft, tender in the abdomen area with KASEY drain in the right upper quadrant - Integumentary Integumentary: no rash - Neurologic Neurologic: CNII-XII intact - Musculoskeletal Musculoskeletal: gait not assessed, strength equal bilaterally - Psychiatric Psychiatric: A&O x's 3, appropriate affect - Labs CBC & Chem 7: 08/31/19 08:42 08/31/19 08:42 Labs: Abnormal Lab Results - Last 24 Hours (Table) 08/31/19 09/01/19 09/01/19 Range/Units 08:42 07:36 07:36 ESR 17 H (0-15) mm/hr C-Reactive Protein 16.7 H (<10.0) mg/L CA 19-9 Antigen 1510.4 H (0.0-34.9) U/mL Microbiology - Last 24 Hours (Table) 08/30/19 16:14 Blood Culture - Preliminary Blood No Growth after 24 hours Assessment and Plan Plan: #1 acute epigastric pain status post open cholecystectomy 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 Pending pathology results CA 19/9 positive.acute cholecystitis ruled out. Plavix will be resumed tomorrow. oncology consult once pathology positive6. CT chest ordered for staging of the cancer #2 history of coronary artery disease stenting of RCA on 2018resume aspirin and Plavix tomorrow continue Lipitor lisinopril and metoprolol #3 hyperlipidemia continue atorvastatin 20 mg by mouth daily #4 hypothyroidism continue 100 g by mouth daily #5 Code status full code #6 DVT prophylaxis with heparin 5000 every 12 #7 dispositionpending
[2019-09-01] MEDS: HYDROmorphone 1 MG/ML 1 ML SYRINGE IVP PRN ×2 (18:43→22:07)
[2019-09-02] MEDS: metroNIDAZOLE-NS PMX 500 MG in SALINE 1 100ML.BAG IVPB SCH ×4 (00:51→23:13)
[2019-09-02] MEDS: SODIUM CHLORIDE 0.9% 1,000 ML IV SCH ×2 (00:51→15:13)
[2019-09-02] MEDS: HYDROmorphone 1 MG/ML 1 ML SYRINGE IVP PRN ×4 (02:07→20:41)
[2019-09-02] MEDS: LEVOTHYROXINE 100 MCG TAB PO SCH (06:24)
[2019-09-02] MEDS: ATORVASTATIN 40 MG TAB PO SCH (07:53)
[2019-09-02] MEDS: HEPARIN SODIUM,PORCINE 5,000 UNIT/ML 1 ML VIAL SQ SCH ×2 (07:53→20:40)
[2019-09-02] MEDS: ASPIRIN 81 MG PO SCH (07:53)
[2019-09-02] MEDS: METOPROLOL TARTRATE 25 MG TAB PO SCH ×2 (07:53→20:41)
[2019-09-02] MEDS: LISINOPRIL 5 MG TAB PO SCH (07:53)
[2019-09-02] MEDS: PANTOPRAZOLE 40 MG/10 ML VIAL IV SCH (07:54)
--- NOTE | 2019-09-02 09:14 | CT ---
EXAMINATION TYPE: CT chest wo con DATE OF EXAM: 09/02/2019 COMPARISON: 08/30/2019 CT abdomen pelvis and CT chest 12/16/2018 HISTORY: staging of the tumor CT DLP: 533.[address] of the chest was performed with lung and mediastinal window settings submitted. The la ck of contrast limits evaluation of the vascular, mediastinal and parenchymal structures including th e upper abdomen. LUNGS: Moderate airspace consolidation right lower lobe which may reflect infiltrate and/or atelectas is. Left basilar atelectasis and/or infiltrate noted as well. Small pleural effusions noted bilateral ly. Pleural-based nodular density left midlung zone measures 1.4 cm and may reflect small neoplasm ve rsus a focal consolidation. There is of subpleural fibrosis identified within both lung jordan. Scatt ered areas of groundglass infiltrate. Small 3 mm nodule right upper lobe image 20 of 62. MEDIASTINUM/NAHUN: Thoracic aorta is of normal caliber with limited evaluation given lack of contrast . The heart is enlarged. Coronary artery calcifications noted. No evidence for mediastinal mass. No lymph nodes greater than 1cm. UPPER ABDOMEN: Masslike area again noted within the anterior segment right hepatic lobe. Adjacent beronica gical drain is identified. There is also a small amount of pneumoperitoneum. Skin staple line is iden tified as well. Correlate with patient's surgical history. Nephrolithiasis right kidney. Simple appea ring renal cyst posterior margin right kidney midpole. OTHER: No significant other abnormality. IMPRESSION: 1. Bilateral airspace consolidation may reflect infiltrate and/or atelectasis and obscures visualiza tion of any underlying masses. Small pleural effusions noted as well. 2. Pleural-based nodular density left upper lobe as noted may reflect focal consolidation versus pulm onary nodule. Additional nonspecific nodularity right upper lobe. 3. Underlying pulmonary fibrosis and groundglass infiltrates.
[2019-09-02 12:56] LABS: Basophils % (A) 0 %; Eosinophils # (A) 0.1 k/uL (0-0.7); Eosinophils % (A) 1 %; HCT 31.7 % (39.0-53.0); HGB 10.8 gm/dL (13.0-17.5); Lymphocytes # (A) 0.9 k/uL (1.0-4.8); Lymphocytes % (A) 7 %; MCH 32.8 pg (25.0-35.0); MCHC 34.1 g/dL (31.0-37.0); MCV 96.3 fL (80.0-100.0); Monocytes # (A) 0.7 k/uL (0-1.0); Monocytes % (A) 6 %; Neutrophils # (A) 11.2 k/uL (1.3-7.7); Neutrophils % (A) 85 %; Platelet Count 149 k/uL (150-450); RDW 13.9 % (11.5-15.5); WBC 13.1 k/uL (3.8-10.6)
[2019-09-02 12:58] LABS: Calcium 8.4 mg/dL (8.4-10.2); Potassium 4.8 mmol/L (3.5-5.1); Total Protein 5.4 g/dL (6.3-8.2)
--- NOTE | 2019-09-02 13:18 | P.PN ---
Progress Note - Text Progress Note Date: 09/02/19 the patient is postoperative day 1 from open cholecystectomy for presumed gallbladder cancer. He has had some complaints of pain. On exam his vital signs are stable. His abdomen soft. Incision sites clean dry intact. KASEY drain has serosanguineous drainage. Status post open post appendectomy. Patient continued have supsport of care.
--- NOTE | 2019-09-02 13:47 | P.PN ---
Subjective HISTORY OF PRESENTING ILLNESS This is a pleasant 79-year-old male past medical history significant for coronary artery disease status post recent PCI, hypertension, dyslipidemia, basal cell skin cancer and obesity. He follows in the office with Dr. Summers. He underwent open cholecystectomy yesterday with Dr. Yuan. Unfortunately, the re was noted to be quite a large mass on the gallbladder as well as the liver. Biopsies were obtained. He is seen and examined laying flat in bed in no acute distress. He is complaining of abdominal discomfort. Denies chest pain, shortness of breath, dizziness or palpitations. Blood pressure 119/56 heart rate 72 afebrile and maintaining oxygen saturation on nasal cannula. Laboratory data reviewed, WBC 13.1, hgb 10.8, plt 149, sodium 142, potassium 4.8, creatinine 1.36. Currently maintained on aspirin 81 mg daily, atorvastatin 40 mg daily, lisinopril 5 mg daily and lopressor [address] Yuan, ok to resume plavix. PHYSICAL EXAMINATION CONSTITUTIONAL: No apparent distress. Obese. HEENT: Head is normocephalic. Pupils are equal, round. Sclerae anicteric. Mucous membranes of the mouth are moist. No JVD. No carotid bruit. CHEST EXAMINATION: Lungs are clear to auscultation. No chest wall tenderness is noted on palpation or with deep breathing. HEART EXAMINATION: Regular rate and rhythm. S1, S2 heard. No murmurs, gallops or rub. EXTREMITIES: 2+ peripheral pulses, no lower extremity edema and no calf tenderness. 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 Yuan plavix is ok to be resumed as well. Dual anti-platelet therapy resumed. We will continue to follow as needed, please call with further questions or concerns. Follow up with Dr. Summers upon discharge. Nurse Practitioner note has been reviewed, I agree with a documented findings and plan of care. Patient was seen and examined. Objective - Vital Signs Vital signs: Vital Signs Temp 98.6 F 09/02/19 11:57 Pulse 72 09/02/19 11:57 Resp 17 09/02/19 11:57 BP 119/56 09/02/19 11:57 Pulse Ox 93 L 09/02/19 11:57 Intake & Output 09/01/19 09/02/19 09/02/19 18:59 06:59 18:59 Intake Total 1650 1220 Output Total 200 800 240 Balance 1450 420 -240 Weight 97.5 kg Intake: IV 1650 Intake, IV Titration 1100 Amount Sodium Chloride 0.9% 1, 900 000 ml @ 75 mls/hr IV . [id number] [facility] Rx#:[id number] metroNIDAZOLE-NS PMX 500 200 mg In Saline 1 100ml.bag @ 100 mls/hr IVPB Q8HR [facility] Rx#:[id number] Oral 120 Output: Drainage 240 Right Lower Abdomen 240 Urine 800 Straight 800 Estimated Blood Loss 200 Other: Voiding Method Toilet Urinal Urinal # Voids 3 - Labs CBC & Chem 7: 09/02/19 12:32 09/02/19 12:32 Labs: Abnormal Lab Results - Last 24 Hours (Table) 09/02/19 09/02/19 Range/Units 12:32 12:32 WBC 13.1 H (3.8-10.6) k/uL RBC 3.30 L (4.30-5.90) m/uL Hgb 10.8 L (13.0-17.5) gm/dL Hct 31.7 L (39.0-53.0) % Plt Count 149 L (150-450) k/uL Neutrophils # 11.2 H (1.3-7.7) k/uL Lymphocytes # 0.9 L (1.0-4.8) k/uL Chloride 109 H (98-107) mmol/L Creatinine 1.36 H (0.66-1.25) mg/dL Glucose 120 H (74-99) mg/dL AST 68 H (17-59) U/L ALT 65 H (4-49) U/L Total Protein 5.4 L (6.3-8.2) g/dL Albumin 3.0 L (3.5-5.0) g/dL Microbiology - Last 24 Hours (Table) 08/31/19 16:32 Blood Culture - Preliminary Blood No Growth after 24 hours 08/30/19 16:14 Blood Culture - Preliminary Blood No Growth after 48 hours
[2019-09-02] MEDS: CLOPIDOGREL 75 MG TAB PO SCH (14:17)
[2019-09-02 15:12] VITALS: BMI 30.8
--- NOTE | 2019-09-02 17:10 | P.PN ---
Subjective Progress Note Date: 09/02/19 69 years old male patient of Dr. Asekw with past medical history of hyperlipidemia, hypertension, hypothyroidism, coronary artery disease status post stenting of RCA. According to the patient he was having epigastric pain for the past 1 month and had an outpatient stress test which suggested re versible defect in the apex of left ventricle for which patient underwent heart cath and was taken for stenting of the RCA by Dr. Shannon. Patient had ongoing epigastric pain since PCI but attributed it to the medications. patient was in [facility] 2 days ago where he had severe pain in his right upper quadrant area and epigastric area associated with nausea [place] highway, he pulled off his car and called cardiology. Since there was no improvement in his pain patient decided to come to the ER on Thursday morning. On evaluation in the ER, patient is afebrilepulse of 62 respiratory rate 16 blood pressure 108/64on evaluation of labs patient has a WBC of 6.2 hemoglobin 12.3 chloride 110 creatinine was 1.49 on admission improved to 1.3 on repeat testing liver enzymes were completely, except for AST of 91 that improved to 56 this morning lactic acid was normal patient was given 1 dose of cefepime and was admitted. 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 Gallbladder ultr asound also was positive forinflammation of the gallbladder concerning for cholecystitis withphlegmonous change or early abscess of the liver, gallbladder carcinoma with invasion of the liver or hepatic new present with adjacent gallbladder wall thickening secondary to hepatic cellular disease. HIDA scan was done that was consistent with acute cholecystitis, antibiotics switched to ceftriaxone and Flagyl. Patient to be nothing by mouth after midnight. Cardiology consult placed 09/01 patient examined bedside postoperatively. Patient did have a gallbladder mass suspicious for gallbladder cancer with invasion into the right lobe of liver. Diagnostic laparoscopy was switched to open cholecystectomy patient tolerated the procedure well ,did have significant amount of painon evaluation. Patient was found to be drowsy, sats were in the 90-91% on 2 L of oxygen with heart rate ranging from 40-250 as patient was sleeping. Patient to be evaluated for sleep study as outpatient.labs including CA 19 - 9 +1510.4. AFP negative biopsy was taken from the liver mass and sent for pathology. 09/02 patient did well postoperatively. Complains of some pain in the right upper quadrant controlled with Tylenol ordered. The aspirin and Plavix has been resumed. Biopsy is pending from the gallbladder mass. CT chest ordered concerning for pulmonary fibrosis versus interstitial pneumonitis with pulmonary nodules notedRichard pleural-based in the left upper lobe which may reflect focal consolidation was was pulmonary nodule.patient has bilateral airspace consolidation right lower lobe and left basilar atelectasis versus. Incentive spirometer ordered. ProBNP ordered stop normal salinepatient may require slight bit of diuresiscontinues to require high amount of oxygen. Patient encouraged to use incentive spirometeron evaluation blood work patient has a stable creatinine 1.36 ROS Constitutional: Denies chills, Denies fever, Denies lethargy, Denies malaise, Denies poor appetite, Denies weakness, Denies weight loss Eyes: denies decreased vision, denies diplopia, denies discharge, denies pain Ears: deny: decreased hearing Ears, nose, mouth and throat: Denies dental pain, Denies headache, Denies nasal discharge, Denies nose pain Cardiovascular: Denies chest pain, Denies decreased exercise tolerance, Denies edema, Denies high blood pressure, Denies irregular heart beat, Denies palpitations, Denies paroxysmal nocturnal dyspnea, Denies rapid heart beat, endorses shortness of breath Respiratory: Denies congestion, Denies cough, Denies cough with sputum, endorses dyspnea, Denies home oxygen, Denies wheezing Gastrointestinal: endorses abdominal pain post surgery, Denies change in bowel habits, Denies coffee ground emesis, Denies early satiety, Denies excessive gas, Denies heartburn, Denies hematemesis, Denies hematochezia, Denies loss of appetite, Denies nausea, Denies vomiting Genitourinary: Denies dysuria, Denies flank pain, Denies kidney stones, Denies menorrhagia, Denies urgency, Denies urinary frequency Musculoskeletal: Denies gait dysfunction, Denies limitation of motion, Denies morning stiffness, Denies muscle cramps Integumentary: Denies rash, Denies wounds, Denies brittle nails, Denies change in hair/nails, Denies darkening of skin Neurological: Denies balance difficulties, Denies change in speech, Denies double vision, Denies gait dysfunction, Denies loss of vision, Denies motor disturbance, Denies numbness, Denies paralysis, Denies paresthesias, Denies seizures Psychiatric: Denies anxiety, Denies depression Endocrine: Denies excessive sweating, Denies excessive thirst, Denies high blood sugars, Denies palpitations Hematologic/Lymphatic: Denies easy bruising, Denies lymphadenopathy Objective - Vital Signs Vital signs: Vital Signs Temp 98.6 F 09/02/19 11:57 Pulse 72 09/02/19 14:03 Resp 17 09/02/19 14:03 BP 119/56 09/02/19 11:57 Pulse Ox 93 L 09/02/19 11:57 Intake & Output 09/01/19 09/02/19 09/02/19 18:59 06:59 18:59 Intake Total 1650 1220 Output Total 200 800 840 Balance 1450 420 -840 Weight 97.5 kg 97.5 kg Intake: IV 1650 Intake, IV Titration 1100 Amount Sodium Chloride 0.9% 1, 900 000 ml @ 75 mls/hr IV . [id number] [facility] Rx#:[id number] metroNIDAZOLE-NS PMX 500 200 mg In Saline 1 100ml.bag @ 100 mls/hr IVPB Q8HR [facility] Rx#:[id number] Oral 120 Output: Drainage 240 Right Lower Abdomen 240 Urine 800 600 Straight 800 Estimated Blood Loss 200 Other: Voiding Method Toilet Urinal Urinal # Voids 3 3 - Exam - Constitutional General appearance: cooperative, no acute distress, obese - EENT Eyes: anicteric sclerae, PERRLA, normal appearance ENT: hearing grossly normal - Neck Neck: no lymphadenopathy, normal ROM, no other, no rigidity, no stridor, no thyromegaly - Respiratory Respiratory: bilateral: decreased air entry bilaterally with crackles at bases - Cardiovascular Rhythm: regular Heart sounds: normal: S1, S2 Abnormal Heart Sounds: no systolic murmur, no diastolic murmur, no rub, no S3 Gallop, no S4 Gallop, no click, no other - Gastrointestinal General gastrointestinal: normal bowel sounds, soft, tender in the abdomen area with KASEY drain in the right upper quadrant - Integumentary Integumentary: no rash - Neurologic Neurologic: CNII-XII intact - Musculoskeletal Musculoskeletal: gait not assessed, strength equal bilaterally - Psychiatric Psychiatric: A&O x's 3, appropriate affect - Labs CBC & Chem 7: 09/02/19 12:32 09/02/19 12:32 Labs: Abnormal Lab Results - Last 24 Hours (Table) 09/02/19 09/02/19 Range/Units 12:32 12:32 WBC 13.1 H (3.8-10.6) k/uL RBC 3.30 L (4.30-5.90) m/uL Hgb 10.8 L (13.0-17.5) gm/dL Hct 31.7 L (39.0-53.0) % Plt Count 149 L (150-450) k/uL Neutrophils # 11.2 H (1.3-7.7) k/uL Lymphocytes # 0.9 L (1.0-4.8) k/uL Chloride 109 H (98-107) mmol/L Creatinine 1.36 H (0.66-1.25) mg/dL Glucose 120 H (74-99) mg/dL AST 68 H (17-59) U/L ALT 65 H (4-49) U/L Total Protein 5.4 L (6.3-8.2) g/dL Albumin 3.0 L (3.5-5.0) g/dL Microbiology - Last 24 Hours (Table) 08/31/19 16:32 Blood Culture - Preliminary Blood No Growth after 24 hours 08/30/19 16:14 Blood Culture - Preliminary Blood No Growth after 48 hours Assessment and Plan Plan: #1 acute epigastric pain status post open cholecystectomy 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 Pending pathology results CA 19/9 positive.acute cholecystitis ruled out. Plavix aspirin resumed oncology consult recommended follow-up as outpatient with possible chemotherapy . CT chest ordered for staging of the cancersuggested moderate airspace disease, atelectasis and pulmonary nodules in the pleural based #2 history of coronary artery disease stenting of RCA on 2018on aspirin and Plavix continue Lipitor lisinopril and metoprolol #3 hyperlipidemia continue atorvastatin 20 mg by mouth daily #4 hypothyroidism continue 100 g by mouth daily #5 Code status full code #6 DVT prophylaxis with heparin 5000 every 12 #7 disposition likely subacute rehab. PTOT consult #8 interstitial pneumonitis/pulmonary fibrosis patient follows Dr. Guardado as outpatient and has shown stability over the past 2 years with no requirement of oxygen at home
--- NOTE | 2019-09-02 17:11 | P.CONS ---
History of Present Illness - Reason for Consult Consult date: 09/02/19 gallbladder mass, liver mass Requesting physician: Meron Reyes - Chief Complaint abd pain - History of Present Illness Mr. Sims is a very pleasant 79-year-old male who presented to the hospital with complaints of severe abdominal pain 1 day, he admits to actually having a "uncomfortable" stomach at least since summer, did have a change in his bowel habits, he has had episodes of watery diarrhea which is unusual, he had a CT of the abdomen and pelvis without contrast, this showed an abnormal gallbladder with questionable liver lesion. Patient had hepatobiliary nuclear medicine scan showing acute cholecystitis. Dr. Bruno performed open cholecystectomy with liver biopsy, path is currently pending. CT of the chest was done to "stage tumor" no evidence of disease, mentions pulmonary fibrosis, a left upper lobe and a right upper lobe nonspecific nodule. He denied fevers, night sweats, unusual weight loss, difficulty or painful swallowing, increase in indigestion or heartburn, nausea, vomiting, pain is currently controlled. He does not amb ulate much, does use assistive device, has arthritic lt knee pain and back pain that contributes to his decreased mobility. He had cardiac cath with stent 07/02, unable to have MS steroid injections for pain currently as he is on plavix. Patient has a history of melanoma of the head, treated 5 years ago with surgical procedure and graft, he did have bilateral lymph node dissection, no other treatment. 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 Review of Systems 14 point ROS is negative except as stated in HPI Past Medical History Past Medical History: Coronary Artery Disease (CAD), Cancer, Hyperlipidemia, Hypertension, Pneumonia, Thyroid Disorder Additional Past Medical History / Comment(s): squamous cell skin cancer, basal cell skin cancer, melanoma (5 years ago, treated at [facility]), interstital pneumonia. History of Any Multi-Drug Resistant Organisms: None Reported Past Surgical History: Appendectomy, Heart Catheterization With Stent, Tonsillectomy Additional Past Surgical History / Comment(s): bladder - blood tumor, bladder repair, melanoma and graft. mastoidectomy left ear [facility] Past Anesthesia/Blood Transfusion Reactions: No Reported Reaction Date of Last Stent Placement:: 08/01/2019 Past Psychological History: No Psychological Hx Reported Smoking Status: Former smoker Past Alcohol Use History: None Reported Past Drug Use History: None Reported Additional Drug Use History / Comment(s): breast ca - Past Family History Mother Family Medical History: Cancer Sister(s) Family Medical History: Cancer Additional Family Medical History / Comment(s): vaginal Medications and Allergies Home Medications Medication Instructions Recorded Confirmed Type Aspirin [Adult Low Dose Aspirin EC] 81 mg PO DAILY 02/24/18 08/30/19 History Levothyroxine Sodium [Synthroid] 100 mcg PO DAILY 02/24/18 08/30/19 History Atorvastatin [Lipitor] 40 mg PO DAILY #30 tab 08/03/19 08/30/19 Rx Clopidogrel [Plavix] 75 mg PO DAILY #30 tab 08/03/19 08/30/19 Rx Lisinopril [Zestril] 5 mg PO DAILY #30 tab 08/03/19 08/30/19 Rx Metoprolol Tartrate [Lopressor] 25 mg PO BID #60 tab 08/03/19 08/30/19 Rx Nitroglycerin Sl Tabs [Nitrostat] 0.4 mg SUBLINGUAL Q5M PRN #25 tab 08/03/19 08/30/19 Rx guaiFENesin [Mucinex] 1,200 mg PO Q6H PRN 08/30/19 08/30/19 History Allergies Allergy/AdvReac Type Severity Reaction Status Date / Time erythromycin base Allergy Unknown Verified 08/30/19 16:59 Penicillins Allergy Unknown Verified 08/30/19 16:59 Sulfa (Sulfonamide Allergy Unknown Verified 08/30/19 16:59 Antibiotics) Iodine and Iodide Containing AdvReac decrease Verified 08/30/19 16:59 Produc kidney function Physical Exam Vitals: Vital Signs Temp Pulse Pulse Resp BP Pulse Ox 09/02/19 14:03 72 58 L 17 09/02/19 11:57 98.6 F 72 17 119/56 93 L 09/02/19 08:00 83 58 L 16 09/02/19 05:00 97.3 F L 83 16 121/63 92 L 09/01/19 21:00 97.8 F 75 16 134/59 95 Intake and Output 09/02/19 09/02/19 09/02/19 06:59 14:59 22:59 Intake Total 1000 Output Total 800 840 Balance 200 -840 Intake: Intake, IV Titration 1000 Amount Sodium Chloride 0.9% 1, 900 000 ml @ 75 mls/hr IV . [id number] [facility] Rx#:[id number] metroNIDAZOLE-NS PMX 500 100 mg In Saline 1 100ml.bag @ 100 mls/hr IVPB Q8HR [facility] Rx#:[id number] Output: Drainage 240 Right Lower Abdomen 240 Urine 800 600 Straight 800 Other: Voiding Method Urinal Urinal # Voids 3 Weight 97.5 kg - Constitutional General appearance: average body habitus, cooperative, no acute distress - EENT very dry mouth Eyes: anicteric sclerae, EOMI ENT: hearing grossly normal - Neck Neck: no lymphadenopathy - Respiratory Respiratory: bilateral: CTA - Cardiovascular Rhythm: regular Heart sounds: normal: S1, S2 Abnormal Heart Sounds: no systolic murmur, no diastolic murmur, no rub, no S3 Gallop, no S4 Gallop, no click, no other leg Peripheral Edema: bilateral: None - Gastrointestinal incision dressing is C/D/I, no unusual abd pain, mild distension, no warmth bruising General gastrointestinal: no absent bowel sounds, no decreased bowel sounds, no distended, no hepatomegaly, no hyperactive bowel sounds, normal bowel sounds, no organomegaly, no rigid, no scaphoid, soft, no splenomegaly, tenderness, no umbilical hernia, no ventral hernia - Neurologic Neurologic: CNII-XII intact - Musculoskeletal Musculoskeletal: generalized weakness - Psychiatric Psychiatric: A&O x's 3, appropriate affect, intact judgment & insight Results CBC & Chem 7: 09/02/19 12:32 09/02/19 12:32 Labs: Abnormal Lab Results - Last 24 Hours (Table) 09/02/19 09/02/19 Range/Units 12:32 12:32 WBC 13.1 H (3.8-10.6) k/uL RBC 3.30 L (4.30-5.90) m/uL Hgb 10.8 L (13.0-17.5) gm/dL Hct 31.7 L (39.0-53.0) % Plt Count 149 L (150-450) k/uL Neutrophils # 11.2 H (1.3-7.7) k/uL Lymphocytes # 0.9 L (1.0-4.8) k/uL Chloride 109 H (98-107) mmol/L Creatinine 1.36 H (0.66-1.25) mg/dL Glucose 120 H (74-99) mg/dL AST 68 H (17-59) U/L ALT 65 H (4-49) U/L Total Protein 5.4 L (6.3-8.2) g/dL Albumin 3.0 L (3.5-5.0) g/dL Microbiology - Last 24 Hours (Table) 08/31/19 16:32 Blood Culture - Preliminary Blood No Growth after 24 hours 08/30/19 16:14 Blood Culture - Preliminary Blood No Growth after 48 hours Comments: NM hepatobiliary scan CT scan - abdomen: report reviewed CT scan - pelvis: report reviewed Assessment and Plan (1) Gallbladder mass Current Visit: Yes Status: Acute Priority: High Code(s): K82.8 - OTHER SP ECIFIED DISEASES OF GALLBLADDER SNOMED Code(s): 566169309314488 (2) Liver mass Current Visit: Yes Status: Acute Priority: High Code(s): R16.0 - HEPAT OMEGALY, NOT ELSEWHERE CLASSIFIED SNOMED Code(s): 992385179 (3) Abdominal pain Current Visit: Yes Status: Acute Priority: High Code(s): R10.9 - UNSPE CIFIED ABDOMINAL PAIN SNOMED Code(s): 20845710 Plan: Patient is status post cholecystectomy with biopsy of liver mass. I discussed with the patient and his the description the Surgeon has in the operative note, highly suspect malignancy, at least locally advanced. Pending pathology for full details. Did explain to the patient and his that no treatment would be considered until patient is completely healed from surgical procedure. They verbalized understanding, patient's is a patient of Dr. Villalba so, we'll plan a follow-up with him and about 3-4 weeks. Patient and his verbalized understanding the plan.
[2019-09-03] MEDS: HYDROmorphone 1 MG/ML 1 ML SYRINGE IVP PRN ×2 (00:16→06:25)
[2019-09-03] MEDS: LEVOTHYROXINE 100 MCG TAB PO SCH (06:23)
[2019-09-03] MEDS: METOPROLOL TARTRATE 25 MG TAB PO SCH ×2 (08:05→20:36)
[2019-09-03] MEDS: LISINOPRIL 5 MG TAB PO SCH (08:05)
[2019-09-03] MEDS: CLOPIDOGREL 75 MG TAB PO SCH (08:05)
[2019-09-03] MEDS: metroNIDAZOLE-NS PMX 500 MG in SALINE 1 100ML.BAG IVPB SCH ×3 (08:05→23:45)
[2019-09-03] MEDS: HEPARIN SODIUM,PORCINE 5,000 UNIT/ML 1 ML VIAL SQ SCH ×2 (08:06→20:36)
[2019-09-03] MEDS: ATORVASTATIN 40 MG TAB PO SCH (08:06)
[2019-09-03] MEDS: ASPIRIN 81 MG PO SCH (08:06)
[2019-09-03] MEDS: PANTOPRAZOLE 40 MG/10 ML VIAL IV SCH (08:06)
[2019-09-03 10:55] LABS: Glucose,Whole Blood 111 mg/dL (75-99)
--- NOTE | 2019-09-03 11:29 | P.PN ---
Progress Note - Text Progress Note Date: 09/03/19 the patient is postoperative day 2 from open post ectomy for gallbladder mass removal. Patient has some serosanguineous drainage in his KASEY drain. He is resumed his Plavix per the front desk worker. He states his pain is better today. On exam his vital signs are stable. His abdomen is soft. Incision sites clean and intact. Status post post ectomy for suspicious gallbladder mass. Pathology still pending. Patient will have his diet slowly advanced.
[2019-09-03 11:46] LABS: Glucose,Whole Blood 104 mg/dL (75-99)
--- NOTE | 2019-09-03 12:41 | P.PN ---
Subjective Progress Note Date: 09/03/19 Principal diagnosis: cholecystectomy patient still weak and lethargic reporting no appetite but tolerating liquids and drinking plenty of fluid. Patient is denying chest pain shortness breath dizziness lightheadedness or dysuria Objective - Vital Signs Vital signs: Vital Signs Temp 97.5 F L 09/03/19 11:34 Pulse 66 09/03/19 11:34 Resp 16 09/03/19 11:34 BP 131/60 09/03/19 11:34 Pulse Ox 91 L 09/03/19 11:34 Intake & Output 09/02/19 09/03/19 09/03/19 18:59 06:59 18:59 Output Total 840 1600 220 Balance -840 -1600 -220 Weight 97.5 kg Output: Drainage 240 45 Right Lower Abdomen 240 45 Urine 600 1600 Post Void Residual 175 Other: Voiding Method Urinal Urinal Urinal # Voids 3 1 - Exam Gen.: in stated age, no acute distress Heart: Normal S1-S2 Lungs: Clear to auscultation bilaterally Abdomen: Soft, no tenderness, positive bowel sounds in all 4 quadrant no guarding or rebound Skin: No new rash Psych: Alert and oriented 3 Neuro: No focal deficit - Labs CBC & Chem 7: 09/02/19 12:32 09/02/19 12:32 Labs: Abnormal Lab Results - Last 24 Hours (Table) 09/02/19 09/02/19 09/03/19 Range/Units 12:32 12:32 10:52 WBC 13.1 H (3.8-10.6) k/uL RBC 3.30 L (4.30-5.90) m/uL Hgb 10.8 L (13.0-17.5) gm/dL Hct 31.7 L (39.0-53.0) % Plt Count 149 L (150-450) k/uL Neutrophils # 11.2 H (1.3-7.7) k/uL Lymphocytes # 0.9 L (1.0-4.8) k/uL Chloride 109 H (98-107) mmol/L Creatinine 1.36 H (0.66-1.25) mg/dL Glucose 120 H (74-99) mg/dL POC Glucose (mg/dL) 111 H (75-99) mg/dL AST 68 H (17-59) U/L ALT 65 H (4-49) U/L Total Protein 5.4 L (6.3-8.2) g/dL Albumin 3.0 L (3.5-5.0) g/dL 09/03/19 Range/Units 11:34 WBC (3.8-10.6) k/uL RBC (4.30-5.90) m/uL Hgb (13.0-17.5) gm/dL Hct (39.0-53.0) % Plt Count (150-450) k/uL Neutrophils # (1.3-7.7) k/uL Lymphocytes # (1.0-4.8) k/uL Chloride (98-107) mmol/L Creatinine (0.66-1.25) mg/dL Glucose (74-99) mg/dL POC Glucose (mg/dL) 104 H (75-99) mg/dL AST (17-59) U/L ALT (4-49) U/L Total Protein (6.3-8.2) g/dL Albumin (3.5-5.0) g/dL Microbiology - Last 24 Hours (Table) 08/31/19 16:32 Blood Culture - Preliminary Blood No Growth after 48 hours 08/30/19 16:14 Blood Culture - Preliminary Blood No Growth after 72 hours Assessment and Plan Assessment: 1. Status post cholecystectomy.possible gallbladder malignancy pending biopsy result 2. Severe dehydration. 3. Severe debility and deconditioning. 4. Anemia of blood loss. 5. Slight elevation in liver enzymes. 6.mild leukocytosis. Plan discussed with patient and his at the bedside who requested patient to be kept in the hospital for close monitoring also in preparation for discharge home with home care as patient is becoming more dependent and requiring assistance and his transfers and his daily activities. We will continue monitoring vital signs closely repeat blood work in the morning encourage oral intake and encourage ambulation plan for discharge based on clinical progress and clinical case manager arrangement
[2019-09-03] MEDS: ONDANSETRON 4 MG/2 ML VIAL IVP PRN (14:21)
[2019-09-03 17:16] LABS: Glucose,Whole Blood 110 mg/dL (75-99)
[2019-09-03] MEDS: INSULIN ASPART (NovoLOG) 100 UNIT/ML VIAL SQ SCH ×2 (17:25→20:38)
[2019-09-03] MEDS: MORPHINE SULFATE 4 MG/ML SYRINGE IV PRN ×2 (18:08→23:49)
[2019-09-03 18:49] LABS: HCT 30.3 % (39.0-53.0); HGB 10.6 gm/dL (13.0-17.5); MCH 33.4 pg (25.0-35.0); MCHC 35.1 g/dL (31.0-37.0); MCV 95.2 fL (80.0-100.0); Mean Platelet Volume 8.3; Platelet Count 158 k/uL (150-450); RBC 3.18 m/uL (4.30-5.90)
[2019-09-03 20:40] LABS: Glucose,Whole Blood 111 mg/dL (75-99)
[2019-09-04] MEDS: HYDROmorphone 1 MG/ML 1 ML SYRINGE IVP PRN (01:15)
[2019-09-04] MEDS: LEVOTHYROXINE 100 MCG TAB PO SCH (05:12)
[2019-09-04 07:10] LABS: Glucose,Whole Blood 97 mg/dL (75-99)
[2019-09-04] MEDS: INSULIN ASPART (NovoLOG) 100 UNIT/ML VIAL SQ SCH ×4 (07:40→21:07)
[2019-09-04] MEDS: metroNIDAZOLE-NS PMX 500 MG in SALINE 1 100ML.BAG IVPB SCH ×2 (08:27→17:27)
[2019-09-04] MEDS: ASPIRIN 81 MG PO SCH (08:29)
[2019-09-04] MEDS: CLOPIDOGREL 75 MG TAB PO SCH (08:29)
[2019-09-04] MEDS: METOPROLOL TARTRATE 25 MG TAB PO SCH ×2 (08:29→21:12)
[2019-09-04] MEDS: ATORVASTATIN 40 MG TAB PO SCH (08:29)
[2019-09-04] MEDS: LISINOPRIL 5 MG TAB PO SCH (08:29)
[2019-09-04] MEDS: HEPARIN SODIUM,PORCINE 5,000 UNIT/ML 1 ML VIAL SQ SCH ×2 (08:29→21:11)
[2019-09-04] MEDS: PANTOPRAZOLE 40 MG TABLET PO SCH (08:29)
[2019-09-04 11:43] LABS: Glucose,Whole Blood 118 mg/dL (75-99)
--- NOTE | 2019-09-04 12:03 | P.PN ---
Subjective Progress Note Date: 09/04/19 Principal diagnosis: cholecystectomy patient continued to be hemodynamically stable no major events reported by nursing staff. Patient and reported excessive drainage from his drain in the right upper quadrant yesterday that slowed down this morning and since morning it has been less than 50 mL for bloody material. Patient is denying chest pain shortness breath dizziness lightheadedness or blurry vision. Patient is tolerating liquid diet but still have no appetite for solid food. Patient requested only one time morphine yesterday Objective - Vital Signs Vital signs: Vital Signs Temp 98.3 F 09/04/19 05:00 Pulse 71 09/04/19 05:00 Resp 16 09/04/19 05:00 BP 117/66 09/04/19 05:00 Pulse Ox 92 L 09/04/19 05:00 Intake & Output 09/03/19 09/04/19 09/04/19 18:59 06:59 18:59 Intake Total 1200 200 Output Total 1135 145 30 Balance 65 -145 170 Intake: Intake, IV Titration 550 Amount Sodium Chloride 0.9% 1, 350 000 ml @ 75 mls/hr IV . [id number] [facility] Rx#:[id number] cefTRIAXone 2 gm In 100 Sodium Chloride 0.9% 50 ml @ 100 mls/hr IVPB Q24HR [facility] Rx#:[id number] metroNIDAZOLE-NS PMX 500 100 mg In Saline 1 100ml.bag @ 100 mls/hr IVPB Q8HR [facility] Rx#:[id number] Oral 650 200 Output: Drainage 310 145 30 Right Lower Abdomen 310 145 30 Urine 650 Post Void Residual 175 Other: Voiding Method Toilet Toilet Toilet # Voids 1 2 1 # Bowel Movements 0 - Exam Gen.: in stated age, no acute distress Heart: Normal S1-S2 Lungs: Clear to auscultation bilaterally Abdomen: Soft, no tenderness, pmild generalized tenderness no guarding or rebound Skin: No new rash Psych: Alert and oriented 3 Neuro: No focal deficit - Labs CBC & Chem 7: 09/03/19 18:36 09/02/19 12:32 Labs: Abnormal Lab Results - Last 24 Hours (Table) 09/03/19 09/03/19 09/03/19 Range/Units 17:12 18:36 20:38 WBC 12.0 H (3.8-10.6) k/uL RBC 3.18 L (4.30-5.90) m/uL Hgb 10.6 L (13.0-17.5) gm/dL Hct 30.3 L (39.0-53.0) % POC Glucose (mg/dL) 110 H 111 H (75-99) mg/dL 09/04/19 Range/Units 11:40 WBC (3.8-10.6) k/uL RBC (4.30-5.90) m/uL Hgb (13.0-17.5) gm/dL Hct (39.0-53.0) % POC Glucose (mg/dL) 118 H (75-99) mg/dL Microbiology - Last 24 Hours (Table) 08/31/19 16:32 Blood Culture - Preliminary Blood No Growth after 72 hours 08/30/19 16:14 Blood Culture - Preliminary Blood No Growth after 96 hours Assessment and Plan Assessment: 1. Status post cholecystectomy.possible gallbladder malignancy pending biopsy result 2. Severe dehydration.improved 3. Severe debility and deconditioning. 4. Anemia of blood loss. 5. Slight elevation in liver enzymes. 6.mild leukocytosis. I had long discussion with patient and his at the bedside in the presence of nursing staff where we discussed multiple issues including his ability to care for himself and I would like to ask for protective services case worker evaluation in the morning to send patient home with home care. was having some concerns about morphine and possible side effects which was not documented by anybody and patient had some abdominal discomfort after 4 hours of taking morphine and attributed related to morphine but I reassured the that it's not related to morphine and I discontinued morphine and started patient's on [place] 7.5 mg every 4 hours as needed to be given based on his symptoms. Regarding patient's appetite patient and encouraged to drink plenty of fluids and avoid solid food and start advancing his diet based on clinical progress. We'll monitor the KASEY drain closely and ensure stability O vital signs and repeat CBC in the morning. Hemoglobin showed stability over the last 24 hours and patient is hemodynamically stable and asymptomatic for blood loss. Pathology report is still pending patient can follow up outpatient with hematology oncology regarding pathology report and treatment options. Discharge planning in the morning based on clinical progress
[2019-09-04] MEDS ORDERED: HYDROcodone/APAP 7.5-325MG 1 EACH TAB PO PRN (12:31)
--- NOTE | 2019-09-04 14:50 | P.PN ---
Progress Note - Text Progress Note Date: 09/04/19 the patient has complaints of some incisional pain. He is tolerating his full liquid diet. On exam his vital signs are stable. Incision sites clean and intact. KASEY drain has mainly serosanguineous drainage. Status post open chostectomy for presumed gallbladder cancer. The official pathology is still pending. We'll increase his diet to regular diet.
[2019-09-04] MEDS: HYDROcodone/APAP 7.5-325MG 1 EACH TAB PO PRN ×2 (15:35→21:11)
[2019-09-04 17:13] LABS: Glucose,Whole Blood 122 mg/dL (75-99)
[2019-09-04 20:50] LABS: Glucose,Whole Blood 111 mg/dL (75-99)
[2019-09-04] MEDS: ONDANSETRON 4 MG/2 ML VIAL IVP PRN (21:18)
[2019-09-05] MEDS: metroNIDAZOLE-NS PMX 500 MG in SALINE 1 100ML.BAG IVPB SCH ×4 (00:26→23:01)
[2019-09-05] MEDS: HYDROcodone/APAP 7.5-325MG 1 EACH TAB PO PRN ×2 (02:16→20:13)
[2019-09-05] MEDS: LEVOTHYROXINE 100 MCG TAB PO SCH (06:31)
[2019-09-05 06:54] LABS: Glucose,Whole Blood 92 mg/dL (75-99)
[2019-09-05] MEDS: INSULIN ASPART (NovoLOG) 100 UNIT/ML VIAL SQ SCH (07:34)
[2019-09-05] MEDS: HEPARIN SODIUM,PORCINE 5,000 UNIT/ML 1 ML VIAL SQ SCH ×2 (08:36→20:12)
[2019-09-05] MEDS: CLOPIDOGREL 75 MG TAB PO SCH (08:36)
[2019-09-05] MEDS: ATORVASTATIN 40 MG TAB PO SCH (08:37)
[2019-09-05] MEDS: LISINOPRIL 5 MG TAB PO SCH (08:37)
[2019-09-05] MEDS: METOPROLOL TARTRATE 25 MG TAB PO SCH ×2 (08:37→20:12)
[2019-09-05] MEDS: ASPIRIN 81 MG PO SCH (08:38)
[2019-09-05] MEDS: PANTOPRAZOLE 40 MG TABLET PO SCH (08:38)
[2019-09-05 11:50] LABS: Glucose,Whole Blood 101 mg/dL (75-99)
[2019-09-05 17:10] LABS: Glucose,Whole Blood 112 mg/dL (75-99)
--- NOTE | 2019-09-05 17:17 | P.PN ---
Subjective Progress Note Date: 09/05/19 69 years old male patient of Dr. Askew with past medical history of hyperlipidemia, hypertension, hypothyroidism, coronary artery disease status post stenting of RCA. According to the patient he was having epigastric pain for the past 1 month and had an outpatient stress test which suggested r eversible defect in the apex of left ventricle for which patient underwent heart cath and was taken for stenting of the RCA by Dr. Shannon. Patient had ongoing epigastric pain since PCI but attributed it to the medications. patient was in [facility] [place] 2 days ago where he had severe pain in his right upper quadrant area and epigastric area associated with nausea while driving on highway, he pul led off his car and called cardiology. Since there was no improvement in his pain patient decided to come to the ER on Thursday morning. On evaluation in the ER, patient is afebrilepulse of 62 respiratory rate 16 blood pressure 108/64on evaluation of labs patient has a WBC of 6.2 hemoglobin 12.3 chloride 110 creatinine was 1.49 on admission improved to 1.3 on repeat testing liver enzymes were completely, except for AST of 91 that improved to 56 this morning lactic acid was normal patient was given 1 dose of cefepime and was admitted. 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 HIDA scan was done that was consistent with acute cholecystitis, antibiotics switched to ceftriaxone and Flagyl. Patient to be nothing by mouth after midnight. Cardiology consult placed 09/01 patient examined bedside postoperatively. Patient did have a gallbladder mass suspicious for gallbladder cancer with invasion into the right lobe of liver. Diagnostic laparoscopy was switched to open cholecystectomy patient tolerated the procedure well ,did have significant amount of painon evaluation. Patient was found to be drowsy, sats were in the 90-91% on 2 L of oxygen with heart rate ranging from 40-250 as patient was sleeping. Patient to be evaluated for sleep study as outpatient.labs including CA 19 - 9 +1510.4. AFP negative biopsy was taken from the liver mass and sent for pathology. 09/02 patient did well postoperatively. Complains of some pain in the right upper quadrant controlled with Tylenol ordered. The aspirin and Plavix has been resumed. Biopsy is pending from the gallbladder mass. CT chest ordered concerning for pulmonary fibrosis versus interstitial pneumonitis with pulmonary nodules notedRichard pleural-based in the left upper lobe which may reflect focal consolidation was was pulmonary nodule.patient has bilateral airspace consolidation right lower lobe and left basilar atelectasis versus. Incentive spirometer ordered. ProBNP ordered stop normal salinepatient may require slight bit of diuresiscontinues to require high amount of oxygen. Patient encouraged to use incentive spirometeron evaluation blood work patient has a stable creatinine 1.36 09/05:patient still has diminished appetite, has weight loss, cough productive of brown is sputum, cough has been increasing, is worried that it is getting worse,chest x-ray was ordered, sputum cultures ordered, has been seeing Dr. Dick in the past for chronic pulmonary fibrosis as well as pulmonary nodules, pain is controlled with the [place],pathology still pending from liver wedge resection and cholecystectomy open procedure,oncology following however they will see back the patient as outpatient follow-up blood sugars stable, no new chemistries available for review he would order them for tomorrow, albumin is decreased, has mild leukocytosis, creatinine 1.36 from few days ago ROS Constitutional: Denies chills, Denies fever, Denies lethargy, Denies malaise, Denies poor appetite, Denies weakness, Denies weight loss Eyes: denies decreased vision, denies diplopia, denies discharge, denies pain Ears: deny: decreased hearing Ears, nose, mouth and throat: Denies dental pain, Denies headache, Denies nasal discharge, Denies nose pain Cardiovascular: Denies chest pain, Denies decreased exercise tolerance, Denies edema, Denies high blood pressure, Denies irregular heart beat, Denies palp itations, Denies paroxysmal nocturnal dyspnea, Denies rapid heart beat,endorses shortness of breath Respiratory: Denies congestion, Denies cough, Denies cough with sputum, endorses dyspnea, Denies home oxygen, Denies wheezing Gastrointestinal: endorses abdominal pain post surgery, Denies change in bowel habits, Denies coffee ground emesis, Denies early satiety, Denies excessive gas, Denies heartburn, Denies hematemesis, Denies hematochezia, Denies loss of appetite, Denies nausea, Denies vomiting Genitourinary: Denies dysuria, Denies flank pain, Denies kidney stones, Denies menorrhagia, Denies urgency, Denies urinary frequency Musculoskeletal: Denies gait dysfunction, Denies limitation of motion, Denies morning stiffness, Denies muscle cramps Integumentary: Denies rash, Denies wounds, Denies brittle nails, Denies change in hair/nails, Denies darkening of skin Neurological: Denies balance difficulties, Denies change in speech, Denies double vision, Denies gait dysfunction, Denies loss of vision, Denies motor dis turbance, Denies numbness, Denies paralysis, Denies paresthesias, Denies seizures Psychiatric: Denies anxiety, Denies depression Endocrine: Denies excessive sweating, Denies excessive thirst, Denies high blood sugars, Denies palpitations Hematologic/Lymphatic: Denies easy bruising, Denies lymphadenopathy Objective - Vital Signs Vital signs: Vital Signs Temp 98.9 F 09/05/19 12:29 Pulse 84 09/05/19 12:29 Resp 17 09/05/19 15:55 BP 108/66 09/05/19 12:29 Pulse Ox 99 09/05/19 12:29 Intake & Output 09/04/19 09/05/19 09/05/19 18:59 06:59 18:59 Intake Total 350 300 850 Output Total 30 70 90 Balance 320 230 760 Weight 97.5 kg Intake: Intake, IV Titration 150 100 200 Amount cefTRIAXone 2 gm In 50 100 Sodium Chloride 0.9% 50 ml @ 100 mls/hr IVPB Q24HR [facility] Rx#:[id number] metroNIDAZOLE-NS PMX 500 100 100 100 mg In Saline 1 100ml.bag @ 100 mls/hr IVPB Q8HR [facility] Rx#:[id number] Oral 200 200 650 Output: Drainage 30 70 90 Right Lower Abdomen 30 70 90 Other: Voiding Method Toilet Toilet Toilet # Voids 1 3 4 # Bowel Movements 0 - Constitutional General appearance: Present: cooperative, no acute distress - EENT Eyes: Present: anicteric sclerae, EOMI, PERRLA, dentition normal, normal appearance ENT: Present: hard of hearing, NA/AT, normal oropharynx - Neck Neck: Present: normal ROM - Respiratory Respiratory: bilateral: CTA, negative: diminished, dullness - Cardiovascular Rhythm: regular Heart sounds: normal: S1, S2 Abnormal Heart Sounds: Absent: systolic murmur, diastolic murmur, rub, S3 Gallop, S4 Gallop, click, other - Gastrointestinal Gastrointestinal Comment(s): incision intact, KASEY drain draining about 30 mL, bile colored General gastrointestinal: Present: normal bowel sounds, soft - Integumentary Integumentary: Present: decreased turgor, normal - Neurologic Neurologic: Present: CNII-XII intact, focal deficits - Musculoskeletal Musculoskeletal: Present: gait normal, strength equal bilaterally - Psychiatric Psychiatric: Present: A&O x's 3, appropriate affect - Labs CBC & Chem 7: 09/03/19 18:36 09/02/19 12:32 Labs: Abnormal Lab Results - Last 24 Hours (Table) 09/04/19 09/04/19 09/05/19 Range/Units 17:08 20:49 11:23 POC Glucose (mg/dL) 122 H 111 H 101 H (75-99) mg/dL Microbiology - Last 24 Hours (Table) 08/31/19 16:32 Blood Culture - Preliminary Blood No Growth after 96 hours 08/30/19 16:14 Blood Culture - Preliminary Blood No Growth after 120 hours Assessment and Plan Plan: #1 acute epigastric pain status post open cholecystectomy 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 Pending pathology results CA 19/9 significantly elevated acute cholecystitis ruled out. Plavix aspirin resumed oncology consult recommended follow-up as outpatient with pos sible chemotherapy . CT chest ordered for staging of the cancer suggested moderate airspace disease, atelectasis and pulmonary nodules in the pleural based #2 history of coronary artery disease stenting of RCA on 2018on aspirin and Plavix continue Lipitor lisinopril and metoprolol #3 hyperlipidemia continue atorvastatin 20 mg by mouth daily #4 hypothyroidism continue 100 g by mouth daily #5 Code status full code #6 DVT prophylaxis with heparin 5000 every 12 #7 disposition likely subacute rehab. PTOT consult #8 interstitial pneumonitis/pulmonary fibrosis patient follows Dr. Guardado as outpatient and has shown stability over the past 2 years with no requirement of oxygen at home #9 liver mass, with mass within the gallbladder, status post incisional biopsy purposes (procedure cholecystectomy #10pneumonic infiltrate with increasing expectoration, familly wanted pulmonary followup hasnt seen them over [address] Guardado at the primary pulmonary doctor, incentive spirometry, on empiric treatment with metronidazole and Roceph in we will change to Zosyn discontinue Rocephin for possible hospital-acquired pneumonia, /3010, moderate protein calorie magician, supplements are already ordered strawberry ensure preferred rather than chocolate debilitysecondary to chronic illness, ambulate, PT OT
[2019-09-05] MEDS: PIPERACILLIN-TAZOBACTAM 3.375 GM in SODIUM CHLORIDE 0.9% 100 ML IVPB SCH (18:11)
[2019-09-05 20:47] LABS: Glucose,Whole Blood 95 mg/dL (75-99)
[2019-09-06] MEDS: PIPERACILLIN-TAZOBACTAM 3.375 GM in SODIUM CHLORIDE 0.9% 100 ML IVPB SCH ×3 (00:14→18:21)
[2019-09-06] MEDS: HYDROcodone/APAP 7.5-325MG 1 EACH TAB PO PRN (04:49)
[2019-09-06] MEDS: LEVOTHYROXINE 100 MCG TAB PO SCH (04:49)
[2019-09-06] MEDS: ATORVASTATIN 40 MG TAB PO SCH (07:44)
[2019-09-06] MEDS: metroNIDAZOLE-NS PMX 500 MG in SALINE 1 100ML.BAG IVPB SCH ×2 (07:44→18:21)
[2019-09-06] MEDS: ASPIRIN 81 MG PO SCH (07:44)
[2019-09-06] MEDS: HYDROmorphone 1 MG/ML 1 ML SYRINGE IVP PRN ×2 (07:45→19:23)
[2019-09-06] MEDS: HEPARIN SODIUM,PORCINE 5,000 UNIT/ML 1 ML VIAL SQ SCH (07:45)
[2019-09-06] MEDS: CLOPIDOGREL 75 MG TAB PO SCH (07:47)
[2019-09-06] MEDS: LISINOPRIL 5 MG TAB PO SCH (07:48)
[2019-09-06] MEDS: METOPROLOL TARTRATE 25 MG TAB PO SCH (07:48)
[2019-09-06 08:14] LABS: Basophils # (A) 0.1 k/uL (0-0.2); Basophils % (A) 1 %; Eosinophils # (A) 0.5 k/uL (0-0.7); Eosinophils % (A) 6 %; HCT 35.5 % (39.0-53.0); Lymphocytes # (A) 1.4 k/uL (1.0-4.8); Lymphocytes % (A) 17 %; MCH 32.4 pg (25.0-35.0); MCHC 33.7 g/dL (31.0-37.0); MCV 96.1 fL (80.0-100.0); Mean Platelet Volume 7.5; Monocytes # (A) 0.4 k/uL (0-1.0); Monocytes % (A) 5 %; Neutrophils # (A) 5.9 k/uL (1.3-7.7); Neutrophils % (A) 70 %; Platelet Count 222 k/uL (150-450); Poikilocytosis Slight; RBC 3.69 m/uL (4.30-5.90); RDW 14.5 % (11.5-15.5); WBC 8.5 k/uL (3.8-10.6)
--- NOTE | 2019-09-06 08:17 | P.PN ---
Progress Note - Text Progress Note Date: 09/05/19 the patient is doing well. He has minimal complaints of pain. His KASEY drains mainly serosanguineous. On exam his vital signs are stable. His abdomen is soft. Incision sites clean dry intact status post open cholecystectomy for presumed gallbladder cancer. Patient will most likely be discharged home tomorrow.
[2019-09-06 08:23] LABS: Albumin 2.8 g/dL (3.5-5.0); Calcium 8.5 mg/dL (8.4-10.2); Potassium 4.1 mmol/L (3.5-5.1); Total Bilirubin 0.7 mg/dL (0.2-1.3); Total Protein 5.2 g/dL (6.3-8.2)
--- NOTE | 2019-09-06 11:34 | P.PN ---
Subjective Progress Note Date: 09/06/19 Principal diagnosis: Abd pain, galbladder mass, liver lesion In f/u today pt has biliary drain in for suspected bile leak, pending GI evaluation. Pt denies pain, nausea, no recent BM Objective - Vital Signs Vital signs: Vital Signs Temp 98.3 F 09/06/19 05:00 Pulse 71 09/06/19 05:00 Resp 19 09/06/19 08:00 BP 145/67 09/06/19 05:00 Pulse Ox 93 L 09/06/19 05:00 Intake & Output 09/05/19 09/06/19 09/06/19 18:59 06:59 18:59 Intake Total 850 820 Output Total 90 120 100 Balance 760 700 -100 Weight 97.5 kg Intake: Intake, IV Titration 200 100 Amount cefTRIAXone 2 gm In 100 Sodium Chloride 0.9% 50 ml @ 100 mls/hr IVPB Q24HR [facility] Rx#:[id number] metroNIDAZOLE-NS PMX 500 100 100 mg In Saline 1 100ml.bag @ 100 mls/hr IVPB Q8HR [facility] Rx#:[id number] Oral 650 720 Output: Drainage 90 120 100 Right Lower Abdomen 90 120 100 Other: Voiding Method Toilet Toilet Toilet # Voids 4 2 - Constitutional General appearance: Present: cooperative, no acute distress, obese - EENT Eyes: Present: anicteric sclerae, EOMI ENT: Present: hearing grossly normal - Respiratory Details: respirations even and unlabored - Cardiovascular Rhythm: regular - Gastrointestinal General gastrointestinal: Present: soft - Neurologic Neurologic: Present: CNII-XII intact - Musculoskeletal Musculoskeletal: Present: generalized weakness - Psychiatric Psychiatric: Present: A&O x's 3, appropriate affect, intact judgment & insight - Labs CBC & Chem 7: 09/06/19 07:33 09/06/19 07:33 Labs: Abnormal Lab Results - Last 24 Hours (Table) 09/05/19 09/05/19 09/05/19 Range/Units 11:23 17:08 17:52 RBC (4.30-5.90) m/uL Hgb (13.0-17.5) gm/dL Hct (39.0-53.0) % Chloride (98-107) mmol/L POC Glucose (mg/dL) 101 H 112 H (75-99) mg/dL Total Protein (6.3-8.2) g/dL Albumin (3.5-5.0) g/dL Procalcitonin 0.17 H (0.02-0.09) ng/mL 09/06/19 09/06/19 Range/Units 07:33 07:33 RBC 3.69 L (4.30-5.90) m/uL Hgb 12.0 L (13.0-17.5) gm/dL Hct 35.5 L (39.0-53.0) % Chloride 110 H (98-107) mmol/L POC Glucose (mg/dL) (75-99) mg/dL Total Protein 5.2 L (6.3-8.2) g/dL Albumin 2.8 L (3.5-5.0) g/dL Procalcitonin (0.02-0.09) ng/mL Microbiology - Last 24 Hours (Table) 08/31/19 16:32 Blood Culture - Preliminary Blood No Growth after 120 hours 08/30/19 16:14 Blood Culture - Final Blood No Growth after 144 hours Assessment and Plan (1) Gallbladder mass Current Visit: Yes Status: Acute Priority: High Code(s): K82.8 - OTHER SPECIFIED DISEASES OF GALLBLADDER SNOMED Code(s): 538095462876486 (2) Liver mass Current Visit: Yes Status: Acute Priority: High Code(s): R16.0 - HEPATOMEGALY, NOT ELSEWHERE CLASSIFIED SNOMED Code(s): 486170123 (3) Abdominal pain Current Visit: Yes Status: Acute Priority: High Code(s): R10.9 - UNSPECIFIED ABDOMINAL PAIN SNOMED Code(s): 58836404 Plan: Told pt that path still pending. He will f/u with Dr. Villalba for plan of care once results are known. Tissue will be sent for additional studies/biomarkers as appropriate according to origin. Case discussed with Surgeon Pending GI evaluation
--- NOTE | 2019-09-06 11:52 | P.PN ---
Subjective Progress Note Date: 09/06/19 CHIEF COMPLAINT: Cholecystitis HISTORY OF PRESENT ILLNESS: Patient is status post open cholecystectomy for presumed gallbladder cancer. Patients KASEY with suspected bile leak. 70cc emptied from KASEY during examination. Patient denies abdominal pain. Denies nausea or vomiting. WBC 8.5. Hemoglobin 12.0. Bilirubin 0.7. AST 38. ALT 28. PHYSICAL EXAM: VITAL SIGNS: Reviewed. GENERAL: Well-developed in no acute distress. HEENT: No sclera icterus. Extraocular movements grossly intact. Moist buccal mucosa. Head is atraumatic, normocephalic. ABDOMEN: Soft. Nondistended. Dressing clean dry and intact. KASEY drain with evidence of bile. NEUROLOGIC: Alert and oriented. Cranial nerves II through XII grossly intact. ASSESSMENT: 1. Status post open cholecystectomy, suspected gallbladder cancer, now with suspected bile leak PLAN: NPO. GI consulted for suspected bile leak. Anticipate ERCP today. Monitor drainage from KASEY drain. Nurse practitioner note has been reviewed by physician. Signing provider agrees with the documented findings, assessment, and plan of care. Objective - Vital Signs Vital signs: Vital Signs Temp 98.3 F 09/06/19 05:00 Pulse 71 09/06/19 05:00 Resp 19 09/06/19 08:00 BP 145/67 09/06/19 05:00 Pulse Ox 93 L 09/06/19 05:00 Intake & Output 09/05/19 09/06/19 09/06/19 18:59 06:59 18:59 Intake Total 850 820 Output Total 90 120 100 Balance 760 700 -100 Weight 97.5 kg Intake: Intake, IV Titration 200 100 Amount cefTRIAXone 2 gm In 100 Sodium Chloride 0.9% 50 ml @ 100 mls/hr IVPB Q24HR [facility] Rx#:[id number] metroNIDAZOLE-NS PMX 500 100 100 mg In Saline 1 100ml.bag @ 100 mls/hr IVPB Q8HR [facility] Rx#:[id number] Oral 650 720 Output: Drainage 90 120 100 Right Lower Abdomen 90 120 100 Other: Voiding Method Toilet Toilet Toilet # Voids 4 2 - Labs CBC & Chem 7: 09/06/19 07:33 09/06/19 07:33 Labs: Abnormal Lab Results - Last 24 Hours (Table) 09/05/19 09/05/19 09/05/19 Range/Units 11:23 17:08 17:52 RBC (4.30-5.90) m/uL Hgb (13.0-17.5) gm/dL Hct (39.0-53.0) % Chloride (98-107) mmol/L POC Glucose (mg/dL) 101 H 112 H (75-99) mg/dL Total Protein (6.3-8.2) g/dL Albumin (3.5-5.0) g/dL Procalcitonin 0.17 H (0.02-0.09) ng/mL 09/06/19 09/06/19 Range/Units 07:33 07:33 RBC 3.69 L (4.30-5.90) m/uL Hgb 12.0 L (13.0-17.5) gm/dL Hct 35.5 L (39.0-53.0) % Chloride 110 H (98-107) mmol/L POC Glucose (mg/dL) (75-99) mg/dL Total Protein 5.2 L (6.3-8.2) g/dL Albumin 2.8 L (3.5-5.0) g/dL Procalcitonin (0.02-0.09) ng/mL Microbiology - Last 24 Hours (Table) 08/31/19 16:32 Blood Culture - Preliminary Blood No Growth after 120 hours 08/30/19 16:14 Blood Culture - Final Blood No Growth after 144 hours
--- NOTE | 2019-09-06 12:16 | CONS ---
CONSULTATION DATE OF SERVICE: 09/06/2019 REASON FOR CONSULTATION: ERCP for possible bile leak. HISTORY OF PRESENT ILLNESS: The patient is an 79-year-old white male admitted to the hospital with severe right upper quadrant abdominal pain and epigastric pain on and off for the last one month duration. He underwent gallbladder ultrasound that showed evidence of acute cholecystitis with possible gallbladder carcinoma for which he underwent gallbladder surgery. He underwent open cholecystectomy by Dr. Bruno 3 days ago. Last night, the patient had severe epigastric pain and this morning he had significant of the bile through the KASEY drain. There was almost 120 mL early this morning and there is another 100 mL in the KASEY bag in the last 2 hours and we are consulted for ERCP with CBD stent placement. PAST MEDICAL HISTORY: His past medical history is significant for hypertension, hyperlipidemia, hypothyroidism, coronary artery disease. MEDICATIONS: Medications at home include Lipitor, Plavix, Synthroid, Zestril, Lopressor, Nitrostat, Mucinex, and aspirin. PAST SURGICAL HISTORY: Open cholecystectomy 2 days ago, cardiac catheterization with stent placement a few years ago, tonsillectomy, bladder repair. FAMILY HISTORY: Unremarkable. REVIEW OF SYSTEMS: CARDIOPULMONARY: He denies any chest pain or shortness of breath. GENITOURINARY: No dysuria or hematuria. MUSCULOSKELETAL: Unremarkable. SKIN: Unremarkable. ENDOCRINE: Unremarkable. PSYCHIATRIC: Unremarkable. NEUROLOGY: Unremarkable. ENT/VISION: Unremarkable. CONSTITUTIONAL: No recent weight loss. No fever, chills or night sweats. PHYSICAL EXAMINATION: On physical examination, he appears comfortable, no apparent distress. Vital signs are stable. Blood pressure is 145/67, pulse rate 71, temperature 98.3. HEENT examination unremarkable. Conjunctivae pink. Sclerae anicteric. Oral cavity no lesions. ' NECK: No JVD or lymph node enlargement. CHEST: Clear to auscultation. HEART: Regular rate and rhythm. ABDOMEN: Soft. Bowel sounds are positive. No organomegaly. KASEY drain in place which has about 100 mL of bilious fluid noted. EXTREMITIES: No pedal edema. SKIN: No rashes. NEURO: Alert and oriented x3. No focal deficits. LABS: Labs done from today: WBC is 8.5, hemoglobin 12, platelets normal. Basic metabolic panel is within normal limits. BUN and creatinine are within normal limits. IMPRESSION: 1. Post cholecystectomy bile leak. The patient is status post gallbladder surgery, status post open cholecystectomy 2 days ago for gallbladder lesions suspicious for gallbladder carcinoma. Pathology is still pending. He has a KASEY drain in place which has significant leakage noted. 2. Coronary artery disease, on aspirin and Plavix. RECOMMENDATIONS: 1. Continue with broad-spectrum antibiotics. 2. We will proceed with an ERCP today. Discussed with the patient, risks, benefits and complications and he is agreeable to it. Thank you for this consultation. MMODL / IJN: [id number] /
--- NOTE | 2019-09-06 12:18 | P.CNPUL ---
History of Present Illness Consult date: 09/06/19 Requesting physician: Yoli Cannon Reason for consult: abnormal CXR/CT (new 1.4 cm left midlung pleural based lesion. History of NSIP) Chief complaint: abdominal discomfort History of present illness: This is a very pleasant 79-year-old gentleman with a known history of coronary artery disease with previous stent placement, hyperlipidemia, hypertension, hypothyroidism, melanoma with excision and grafting, bladder repair, former smoking history. 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 Guardado in our office for the same. He was last seen in December 2018 he was stable both clinically and radiographically. His FEV1 value is 108% of predicted. He maintained O2 saturations in the 90s on a 6 minute walk. He is not on home oxygen. He has an occasional albuterol inhaler that he rarely uses. 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 On 09/02/2019 the patient had a computed tomography scan of the chest which revealed a new 1.4 cm left midlung pleural based lesion along with evidence of an NSIP. We were consulted today for the same. currently, the patient is sitting up in a chair at the bedside. Awake and alert in no acute distress. No shortness of breath, cough or congestion. No fever chills or night sweats. He is maintaining O2 saturation in the 90s on room air. He's afebrile. He modynamically stable. Blood culture reveals no growth. Sputum cultures pending. White count 8.5. Hemoglobin 12.0. Creatinine 01.16. He has had ongoing issues with abdominal discomfort and the plan is for possible ERCP today. Currently on Zosyn and Flagyl. Review of Systems REVIEW OF SYSTEMS: CONSTITUTIONAL: Denies any recent significant weight loss or weight gain. EYES: Denies change in vision. EARS, NOSE, MOUTH, THROAT: Denies headaches, denies sore throat. CARDIOVASCULAR: Denies chest pain, palpitations or syncopal episodes. RESPIRATORY: Denies shortness of breath, cough, congestion or hemoptysis. GASTROINTESTINAL: Abdominal pain, KASEY drain in place GENITOURINARY: Denies hematuria, denies infections. MUSKULOSKELETAL: Denies pain, denies swelling. INTEGUMENTARY: Denies rash, denies eczema. NEUROLOGICAL: Denies recent memory loss, no recent seizure activity. PSYCHIATRIC: Denies anxiety, denies depression. HEMATOLOGIC/LYMPHATIC: Denies anemia, denies enlarged lymph nodes. Past Medical History Past Medical History: Coronary Artery Disease (CAD), Cancer, Hyperlipidemia, Hypertension, Pneumonia, Thyroid Disorder Additional Past Medical History / Comment(s): squamous cell skin cancer, basal cell skin cancer, melanoma (5 years ago, treated at [facility]), interstital pneumonia. History of Any Multi-Drug Resistant Organisms: None Reported Past Surgical History: Appendectomy, Heart Catheterization With Stent, Tonsillectomy Additional Past Surgical History / Comment(s): bladder - blood tumor, bladder repair, melanoma and graft. mastoidectomy left ear MI'KMAQ Past Anesthesia/Blood Transfusion Reactions: No Reported Reaction Date of Last Stent Placement:: 08/01/2019 Past Psychological History: No Psychological Hx Reported Smoking Status: Former smoker Past Alcohol Use History: None Reported Past Drug Use History: None Reported Additional Drug Use History / Comment(s): breast ca - Past Family History Mother Family Medical History: Cancer Sister(s) Family Medical History: Cancer Additional Family Medical History / Comment(s): vaginal Medications and Allergies Home Medications Medication Instructions Recorded Confirmed Type Aspirin [Adult Low Dose Aspirin EC] 81 mg PO DAILY 02/24/18 08/30/19 History Levothyroxine Sodium [Synthroid] 100 mcg PO DAILY 02/24/18 08/30/19 History Atorvastatin [Lipitor] 40 mg PO DAILY #30 tab 08/03/19 08/30/19 Rx Clopidogrel [Plavix] 75 mg PO DAILY #30 tab 08/03/19 08/30/19 Rx Lisinopril [Zestril] 5 mg PO DAILY #30 tab 08/03/19 08/30/19 Rx Metoprolol Tartrate [Lopressor] 25 mg PO BID #60 tab 08/03/19 08/30/19 Rx Nitroglycerin Sl Tabs [Nitrostat] 0.4 mg SUBLINGUAL Q5M PRN #25 tab 08/03/19 08/30/19 Rx guaiFENesin [Mucinex] 1,200 mg PO Q6H PRN 08/30/19 08/30/19 History Allergies Allergy/AdvReac Type Severity Reaction Status Date / Time erythromycin base Allergy Unknown Verified 08/30/19 16:59 Penicillins Allergy Unknown Verified 08/30/19 16:59 Sulfa (Sulfonamide Allergy Unknown Verified 08/30/19 16:59 Antibiotics) Iodine and Iodide Containing AdvReac decrease Verified 08/30/19 16:59 Produc kidney function Physical Exam Vitals: Vital Signs Temp Pulse Pulse Resp BP Pulse Ox 09/06/19 08:00 19 09/06/19 05:00 98.3 F 71 18 145/67 93 L 09/05/19 23:10 18 09/05/19 21:00 98.6 F 64 18 129/58 92 L 09/05/19 15:55 17 09/05/19 12:29 98.9 F 84 16 108/66 99 Intake and Output 09/05/19 09/06/19 09/06/19 22:59 06:59 14:59 Intake Total 820 Output Total 120 100 Balance 820 -120 -100 Intake: Intake, IV Titration 100 Amount metroNIDAZOLE-NS PMX 500 100 mg In Saline 1 100ml.bag @ 100 mls/hr IVPB Q8HR [facility] Rx#:[id number] Oral 720 Output: Drainage 120 100 Right Lower Abdomen 120 100 Other: Voiding Method Toilet Toilet Toilet # Voids 1 2 GENERAL EXAM: Alert, pleasant 79-year-old gentleman, fairly comfortable in no apparent distress.on room air. HEAD: Normocephalic. EYES: Normal reaction of pupils, equal size. NOSE: Clear with pink turbinates. THROAT: No erythema or exudates. NECK: No masses, no JVD. CHEST: No chest wall deformity. LUNGS: Equal air entry with no crackles, wheeze, rhonchi or dullness. CVS: S1 and S2 normal with no audible murmur, regular rhythm. ABDOMEN: abdominal discomfort with suspected bile leak. KASEY drain remains in place.. SPINE: No scoliosis or deformity SKIN: No rashes CENTRAL NERVOUS SYSTEM: No focal deficits, tone is normal in all 4 extremities. EXTREMITIES: There is no peripheral edema. No clubbing, no cyanosis. Peripheral pulses are intact. Results - Laboratory Findings CBC and BMP: 09/06/19 07:33 09/06/19 07:33 PT/INR, D-dimer PT 10.3 sec (9.0-12.0) 08/30/19 13:15 INR 1.0 (<1.2) 08/30/19 13:15 Abnormal lab findings: Abnormal Labs 08/30/19 08/30/19 08/30/19 13:15 13:15 16:15 WBC RBC Hgb Hct Plt Count Neutrophils # Lymphocytes # ESR Chloride BUN 24 H Creatinine 1.49 H Glucose POC Glucose (mg/dL) Plasma Lactic Acid Raymundo <0.5 L AST ALT 91 H C-Reactive Protein Total Protein Albumin CA 19-9 Antigen Procalcitonin Ur Leukocyte Esterase Trace H Urine Mucus Rare H 08/31/19 08/31/19 08/31/19 08:42 08:42 08:42 WBC RBC 3.87 L Hgb 12.3 L Hct 37.3 L Plt Count 143 L Neutrophils # Lymphocytes # ESR Chloride 110 H BUN Creatinine 1.30 H Glucose POC Glucose (mg/dL) Plasma Lactic Acid Raymundo AST ALT 56 H C-Reactive Protein Total Protein 5.5 L Albumin 3.2 L CA 19-9 Antigen 1510.4 H Procalcitonin Ur Leukocyte Esterase Urine Mucus 09/01/19 09/01/19 09/02/19 07:36 07:36 12:32 WBC 13.1 H RBC 3.30 L Hgb 10.8 L Hct 31.7 L Plt Count 149 L Neutrophils # 11.2 H Lymphocytes # 0.9 L ESR 17 H Chloride BUN Creatinine Glucose POC Glucose (mg/dL) Plasma Lactic Acid Raymundo AST ALT C-Reactive Protein 16.7 H Total Protein Albumin CA 19-9 Antigen Procalcitonin Ur Leukocyte Esterase Urine Mucus 09/02/19 09/03/19 09/03/19 12:32 10:52 11:34 WBC RBC Hgb Hct Plt Count Neutrophils # Lymphocytes # ESR Chloride 109 H BUN Creatinine 1.36 H Glucose 120 H POC Glucose (mg/dL) 111 H 104 H Plasma Lactic Acid Raymundo AST 68 H ALT 65 H C-Reactive Protein Total Protein 5.4 L Albumin 3.0 L CA 19-9 Antigen Procalcitonin Ur Leukocyte Esterase Urine Mucus 09/03/19 09/03/19 09/03/19 17:12 18:36 20:38 WBC 12.0 H RBC 3.18 L Hgb 10.6 L Hct 30.3 L Plt Count Neutrophils # Lymphocytes # ESR Chloride BUN Creatinine Glucose POC Glucose (mg/dL) 110 H 111 H Plasma Lactic Acid Raymundo AST ALT C-Reactive Protein Total Protein Albumin CA 19-9 Antigen Procalcitonin Ur Leukocyte Esterase Urine Mucus 09/04/19 09/04/19 09/04/19 11:40 17:08 20:49 WBC RBC Hgb Hct Plt Count Neutrophils # Lymphocytes # ESR Chloride BUN Creatinine Glucose POC Glucose (mg/dL) 118 H 122 H 111 H Plasma Lactic Acid Raymundo AST ALT C-Reactive Protein Total Protein Albumin CA 19-9 Antigen Procalcitonin Ur Leukocyte Esterase Urine Mucus 09/05/19 09/05/19 09/05/19 11:23 17:08 17:52 WBC RBC Hgb Hct Plt Count Neutrophils # Lymphocytes # ESR Chloride BUN Creatinine Glucose POC Glucose (mg/dL) 101 H 112 H Plasma Lactic Acid Raymundo AST ALT C-Reactive Protein Total Protein Albumin CA 19-9 Antigen Procalcitonin 0.17 H Ur Leukocyte Esterase Urine Mucus 09/06/19 09/06/19 07:33 07:33 WBC RBC 3.69 L Hgb 12.0 L Hct 35.5 L Plt Count Neutrophils # Lymphocytes # ESR Chloride 110 H BUN Creatinine Glucose POC Glucose (mg/dL) Plasma Lactic Acid Raymundo AST ALT C-Reactive Protein Total Protein 5.2 L Albumin 2.8 L CA 19-9 Antigen Procalcitonin Ur Leukocyte Esterase Urine Mucus Assessment and Plan Assessment: 1 Abdominal pain status post open cholecystectomy for presumed bladder 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 Pathology pending. 2 Suspected bile leak with possible ERCP today. 3 left lung pleural-based lesion measuring 1.4 cm, neoplasm is not entirely ruled out. 4 History of nonspecific interstitial pneumonitis. 5 Remote history of chronic tobacco dependence. 6 Obesity. 7 Hypertension. 8 Hyperlipidemia. 9 History of melanoma status post resection and grafting. 10 Coronary artery disease with previous stent placement. Plan: The patient was seen and evaluated by Dr. Stout. Computed tomography scan reviewed. There is moderate consolidation in the right lower lobe suspicious for infiltrate/atelectasis along with some left basilar atelectasis. The patient remains on Zosyn. The left mid lung nodular density may be reflective of neoplasm. Pathology on the gallbladder and liver are pending. No pulmonary complaints. we will continue to follow and make further recommendations based on his clinical status. I, the cosigning physician, performed a history & physical examination of the patient. Lungs sounds with crackles in the bilateral posterior bases. Maintaining good O2 saturations in the 90s on room air. I discussed the assessment and plan of care with my nurse practitioner, Yanira Worthy. I attest to the above consultation as dictated by her. Time with Patient: Greater than 30
[2019-09-06 12:21] VITALS: TEMP 98
[2019-09-06] MEDS ORDERED: INDOMETHACIN 50MG SUPPOSITORY RECTAL ONE (13:26)
[2019-09-06] MEDS ORDERED: IV FLUID CONTINUATION 1,000 ML IV ONE (13:51)
[2019-09-06] MEDS ORDERED: LIDOCAINE 1% INJ 10MG/ML (20 ML MDV) ONE (14:20)
[2019-09-06] MEDS ORDERED: PROPOFOL 10 MG/ML 20 ML VIAL IV ONE (14:20)
--- NOTE | 2019-09-06 15:00 | P.PCN ---
Date of Procedure: 09/06/19 Procedure(s) Performed: Brief history: Patient is a 79-year-old pleasant white male, scheduled for an ERCP as a part of evaluation of post cholecystectomy bile leak. He underwent open cholecystectomy with the KASEY drain placement 3 days ago for suspected gallbladder neoplasm. He did well for 2 days' and today started having significant abdominal pain with bile leak through the KASEY drain. His is hence scheduled for an ERCP for CBD stent placement. Procedure performed: ERCP Preoperative diagnoses: Post cholecystectomy bile leak IV sedation per anesthesia: Procedure: After informed consent was obtained from the patient and after the risks benefits and complications including bleeding perforation and pancreatitis explained in detail the patient was brought into the endoscopy unit. The patient was placed in prone position and IV conscious sedation was administered by anesthesia under continuous monitoring. The Olympus side-viewing duodenoscope was then inserted into the mouth and esophagus intubated without any difficulty. The scope was gradually advanced into the stomach and duodenum. The major papilla was identified without any difficulty.initial cannulation resulted in opacification of the pancreatic duct that appeared normal. Subsequently despite multiple attempts I was not able to cannulate the common bile duct. I used a guidewire technique/autotome with no success. At this time the patient was desaturating as per anesthesia recommendations the procedure was terminated. Impression: 1. Normal-appearing pancreatic duct 2. Unsuccessful cannulation of the common bile duct Recommendations: The findings of this examination were discussed with the patient. Will discuss with Dr. Bruno for possible transfer to a tertiary centerfor CBD stent placement..
[2019-09-06 15:31] VITALS: RESP 18
--- NOTE | 2019-09-06 15:34 | FL ---
Fluoroscopy HISTORY: Aborted ERCP 21 seconds fluoroscopy time supplied to the referring clinician. 1 intraoperative C-arm images docum ent the procedure. See dictated report from gastroenterology.
--- NOTE | 2019-09-06 15:57 | P.PN ---
Subjective Progress Note Date: 09/06/19 69 years old male patient of Dr. Askew with past medical history of hyperlipidemia, hypertension, hypothyroidism, coronary artery disease status post stenting of RCA. According to the patient he was having epigastric pain for the past 1 month and had an outpatient stress test which suggested r eversible defect in the apex of left ventricle for which patient underwent heart cath and was taken for stenting of the RCA by Dr. Shannon. Patient had ongoing epigastric pain since PCI but attributed it to the medications. [place] [facility] [place] he had severe pain in his right upper quadrant area and epigastric area associated with nausea [place] highway, he pul led off his car and called cardiology. Since there was no improvement in his pain patient decided to come to the ER on Thursday morning. On evaluation in the ER, patient is afebrilepulse of 62 respiratory rate 16 blood pressure 108/64on evaluation of labs patient has a WBC of 6.2 hemoglobin 12.3 chloride 110 creatinine was 1.49 on admission improved to 1.3 on repeat testing liver enzymes were completely, except for AST of 91 that improved to 56 this morning lactic acid was normal patient was given 1 dose of cefepime and was admitted. 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 HIDA scan was done that was consistent with acute cholecystitis, antibiotics switched to ceftriaxone and Flagyl. Patient to be nothing by mouth after midnight. Cardiology consult placed 09/01 patient examined bedside postoperatively. Patient did have a gallbladder mass suspicious for gallbladder cancer with invasion into the right lobe of liver. Diagnostic laparoscopy was switched to open cholecystectomy patient tolerated the procedure well ,did have significant amount of painon evaluation. Patient was found to be drowsy, sats were in the 90-91% on 2 L of oxygen with heart rate ranging from 40-250 as patient was sleeping. Patient to be evaluated for sleep study as outpatient.labs including CA 19 - 9 +1510.4. AFP negative biopsy was taken from the liver mass and sent for pathology. 09/02 patient did well postoperatively. Complains of some pain in the right upper quadrant controlled with Tylenol ordered. The aspirin and Plavix has been resumed. Biopsy is pending from the gallbladder mass. CT chest ordered concerning for pulmonary fibrosis versus interstitial pneumonitis with pulmonary nodules notedRichard pleural-based in the left upper lobe which may reflect focal consolidation was was pulmonary nodule.patient has bilateral airspace consolidation right lower lobe and left basilar atelectasis versus. Incentive spirometer ordered. ProBNP ordered stop normal salinepatient may require slight bit of diuresiscontinues to require high amount of oxygen. Patient encouraged to use incentive spirometeron evaluation blood work patient has a stable creatinine 1.36 09/05:patient still has diminished appetite, has weight loss, cough productive of brown is sputum, cough has been increasing, is worried that it is getting worse,chest x-ray was ordered, sputum cultures ordered, has been seeing Dr. Dick in the past for chronic pulmonary fibrosis as well as pulmonary nodules, pain is controlled with the [facility],pathology still pending from liver wedge resection and cholecystectomy open procedure,oncology following however they will see back the patient as outpatient follow-up blood sugars stable, no new chemistries available for review he would order them for tomorrow, albumin is decreased, has mild leukocytosis, creatinine 1.36 from few days ago 09/06:, Patient is scheduled for an ERCP today by Dr. Bhakta, to evaluate for postcholecystectomy bile leak, KASEY drain is still billous without any blood, patient has sharp pain prior to this which has subsided, patient denies any fever no chills, patient is currently being seen by pulmonary, with anticipation of the ERCP later today. Post-ERCP, Dr. morfin has informed me that cannulation of the common bile duct is unsuccessful, patient was desaturating as per anesthesia recommendation, the procedure was terminated now on o2 3l 93% at current best. Dr. Bruno has notified me regarding patient's outcome of the procedure and he plans on transferring the patient to tertiary center for common bile duct stent placement [facility] is expected for transfer. 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 Pulmonary Dr. Stout has been notified, underlying pulmonary fibrosis, continue O2 supplementation, might need IV Lasix. Will transfer once bed is available at the tertiary facility ROS Constitutional: Denies chills, Denies fever, Denies lethargy, Denies malaise, Denies poor appetite, Denies weakness, Denies weight loss Eyes: denies decreased vision, denies diplopia, denies discharge, denies pain Ears: deny: decreased hearing Ears, nose, mouth and throat: Denies dental pain, Denies headache, Denies nasal discharge, Denies nose pain Cardiovascular: Denies chest pain, Denies decreased exercise tolerance, Denies edema, Denies high blood pressure, Denies irregular heart beat, Denies palpitations, Denies paroxysmal nocturnal dyspnea, Denies rapid heart beat, endorses shortness of breath Respiratory: Denies congestion, Denies cough, Denies cough with sputum, endorses dyspneaimproving, Denies home oxygen, Denies wheezing Gastrointestinal: endorses abdominal pain post surgery, Denies change in bowel habits, Denies coffee ground emesis, Denies early satiety, Denies excessive gas, Denies heartburn, Denies hematemesis, Denies hematochezia, Denies loss of appetite, Denies nausea, Denies vomiting Genitourinary: Denies dysuria, Denies flank pain, Denies kidney stones, Denies menorrhagia, Denies urgency, Denies urinary frequency Musculoskeletal: Denies gait dysfunction, Denies limitation of motion, Denies morning stiffness, Denies muscle cramps Integumentary: Denies rash, Denies wounds, Denies brittle nails, Denies change in hair/nails, Denies darkening of skin Neurological: Denies balance difficulties, Denies change in speech, Denies doubl e vision, Denies gait dysfunction, Denies loss of vision, Denies motor disturbance, Denies numbness, Denies paralysis, Denies paresthesias, Denies seizures Psychiatric: Denies anxiety, Denies depression Endocrine: Denies excessive sweating, Denies excessive thirst, Denies high blood sugars, Denies palpitations Hematologic/Lymphatic: Denies easy bruising, Denies lymphadenopathy Objective - Vital Signs Vital signs: Vital Signs Temp 98 F 09/06/19 12:38 Pulse 71 09/06/19 15:30 Resp 18 09/06/19 15:30 BP 148/60 09/06/19 15:30 Pulse Ox 93 L 09/06/19 15:30 Intake & Output 09/05/19 09/06/19 09/06/19 18:59 06:59 18:59 Intake Total 850 820 200 Output Total 90 120 340 Balance 760 700 -140 Weight 97.5 kg Intake: IV 200 Intake, IV Titration 200 100 Amount cefTRIAXone 2 gm In 100 Sodium Chloride 0.9% 50 ml @ 100 mls/hr IVPB Q24HR [facility] Rx#:[id number] metroNIDAZOLE-NS PMX 500 100 100 mg In Saline 1 100ml.bag @ 100 mls/hr IVPB Q8HR [facility] Rx#:[id number] Oral 650 720 Output: Drainage 90 120 340 Right Lower Abdomen 90 120 340 Other: Voiding Method Toilet Toilet Toilet # Voids 4 2 - Constitutional General appearance: Present: cooperative, no acute distress - EENT Eyes: Present: anicteric sclerae, EOMI, PERRLA, dentition normal, normal appearance ENT: Present: NA/AT, normal oropharynx - Respiratory Respiratory: bilateral: CTA, negative: diminished, dullness, rales, rhonchi - Cardiovascular Rhythm: regular Heart sounds: normal: S1, S2 Abnormal Heart Sounds: Absent: systolic murmur, diastolic murmur, rub, S3 Gallop, S4 Gallop, click, other - Gastrointestinal General gastrointestinal: Present: normal bowel sounds, soft - Integumentary Integumentary: Present: decreased turgor, normal - Neurologic Neurologic: Present: CNII-XII intact - Labs CBC & Chem 7: 09/06/19 07:33 09/06/19 07:33 Labs: Abnormal Lab Results - Last 24 Hours (Table) 09/05/19 09/05/19 09/06/19 Range/Units 17:08 17:52 07:33 RBC 3.69 L (4.30-5.90) m/uL Hgb 12.0 L (13.0-17.5) gm/dL Hct 35.5 L (39.0-53.0) % Chloride (98-107) mmol/L POC Glucose (mg/dL) 112 H (75-99) mg/dL Total Protein (6.3-8.2) g/dL Albumin (3.5-5.0) g/dL Procalcitonin 0.17 H (0.02-0.09) ng/mL 09/06/19 Range/Units 07:33 RBC (4.30-5.90) m/uL Hgb (13.0-17.5) gm/dL Hct (39.0-53.0) % Chloride 110 H (98-107) mmol/L POC Glucose (mg/dL) (75-99) mg/dL Total Protein 5.2 L (6.3-8.2) g/dL Albumin 2.8 L (3.5-5.0) g/dL Procalcitonin (0.02-0.09) ng/mL Microbiology - Last 24 Hours (Table) 08/31/19 16:32 Blood Culture - Preliminary Blood No Growth after 120 hours 08/30/19 16:14 Blood Culture - Final Blood No Growth after 144 hours Assessment and Plan Plan: #1 acute epigastric pain status post open cholecystectomy positive for 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 results CA 19/9 significantly elevated acute cholecystitis ruled out. Plavix aspirin resumed oncology consult recommended follow-up as outpatient with possible chemotherapy . CT chest ordered for staging of the cancer suggested moderate airspace disease, atelectasis and pulmonary nodules in the pleural based #2 bile leak postop, unable to cannulate through ERCP by Dr. Bhakta gastroenterology, recommended tertiary facility on transfer to be made 09/06/2019 for stent placement #2 history of coronary artery disease stenting of RCA on 2018on aspirin and Plavix continue Lipitor lisinopril and metoprolol #3 hyperlipidemia continue atorvastatin 20 mg by mouth daily #4 hypothyroidism continue 100 g by mouth daily #5 Code status full code #6 DVT prophylaxis with heparin 5000 every 12 #7 disposition likely subacute rehab. PTOT consult #8 interstitial pneumonitis/pulmonary fibrosis patient follows Dr. Guardado as outpatient and has shown stability over the past 2 years with no requirement of oxygen at home #9 liver mass, with mass within the gallbladder, status post incisional biopsy purposes (procedure cholecystectomy #10pneumonic infiltrate with increasing expectoration, familly wanted pulmonary followup hasnt seen them over [address] Guardado at the primary pulmonary doctor, incentive spirometry, on empiric treatment with metronidazole and Roceph in we will change to Zosyn discontinue Rocephin for possible hospit al-acquired pneumonia, /301, moderate protein calorie magician, supplements are already ordered s trawberry ensure preferred rather than chocolate debilitysecondary to chronic illness, ambulate, PT OT Discharge anticipate transfer to [facility] for ERCP with common bile duct stent placement
[2019-09-06 16:14] VITALS: BP 146/59; PULSE 65
[2019-09-06] MEDS: PANTOPRAZOLE 40 MG TABLET PO SCH (16:18)
--- NOTE | 2019-09-06 16:33 | P.DS ---
Providers Date of admission: 08/30/19 15:59 Expected date of discharge: 09/06/19 Attending physician: Meron Reyes MD Consults: 08/30/19 15:59 Consult Physician Urgent Consulting Provider: Pato Bruno Consult Reason/Comments: abdominal pain, please evaluate ultrasound and CT Do you want consulting provider notified?: Already Contacted 08/31/19 11:54 Consult Physician Routine Consulting Provider: Raymond Summers Consult Reason/Comments: Stent placement in July,. Plavix on hold pending surgical consult Do you want consulting provider notified?: Yes 09/02/19 10:57 Consult Physician Routine Consulting Provider: Mohsen Barry Consult Reason/Comments: gallbladder carcinom with liver met Do you want consulting provider notified?: Yes 09/05/19 17:15 Consult Physician Routine Consulting Provider: Justin Guardado Consult Reason/Comments: pulmonaary nodules Do you want consulting provider notified?: Yes 09/06/19 08:17 Consult Physician Routine Consulting Provider: Lanette Uriostegui Consult Reason/Comments: ercp Do you want consulting provider notified?: Yes Primary care physician: [facility] Course: 69 years old male patient of Dr. Askew with past medical history of hyperlipidemia, hypertension, hypothyroidism, coronary artery disease status post stenting of RCA. According to the patient he was having epigastric pain for the past 1 month and had an outpatient stress test which suggested reversible defect in the apex of left ventricle for which patient underwent heart cath and was taken for stenting of the RCA by Dr. Shannon. Patient had ongoing epigastric pain since PCI but attributed it to the medications. patient was in [facility] [place] ago where he had severe pain in his right upper quadrant area and epigastric area associated with nausea [place] highway, he pulled off his car and called cardiology. Since there was no improvement in his pain patient decided to come to the ER on Thursday morning. On evaluation in the ER, patient is afebrilepulse of 62 respiratory rate 16 blood pressure 108/64on evaluation of labs patient has a WBC of 6.2 hemoglobin 12.3 chloride 110 creatinine was 1.49 on admission improved to 1.3 on repeat testing liver enzymes were completely, except for AST of 91 that improved to 56 this morning lactic acid was normal patient was given 1 dose of cefepime and was admitted. 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 Gal lbladder ultrasound also was positive forinflammation of the gallbladder concerning for cholecystitis withphlegmonous change or early abscess of the liver, gallbladder carcinoma with invasion of the liver or hepatic new present with adjacent gallbladder wall thickening secondary to hepatic cellular disease. HIDA scan was done that was consistent with acute cholecystitis, antibiotics switched to ceftriaxone and Flagyl. Patient to be nothing by mouth after midnight. Cardiology consult placed 09/01 patient examined bedside postoperatively. Patient did have a gallbladder mass suspicious for gallbladder cancer with invasion into the right lobe of liver. Diagnostic laparoscopy was switched to open cholecystectomy patient tolerated the procedure well ,did have significant amount of painon evaluation. Patient was found to be drowsy, sats were in the 90-91% on 2 L of oxygen with heart rate ranging from 40-250 as patient was sleeping. Patient to be evaluated for sleep study as outpatient.labs including CA 19 - 9 +1510.4. AFP negative biopsy was taken from the liver mass and sent for pathology. 09/02 patient did well postoperatively. Complains of some pain in the right upper quadrant controlled with Tylenol ordered. The aspirin and Plavix has been resumed. Biopsy is pending from the gallbladder mass. CT chest ordered concerning for pulmonary fibrosis versus interstitial pneumonitis with pulmonary nodules notedRichard pleural-based in the left upper lobe which may reflect focal consolidation was was pulmonary nodule.patient has bilateral airspace consolidation right lower lobe and left basilar atelectasis versus. Incentive spirometer ordered. ProBNP ordered stop normal salinepatient may require slight bit of diuresiscontinues to require high amount of oxygen. Patient encouraged to use incentive spirometeron evaluation blood work patient has a stable creatinine 1.36 09/05:patient still has diminished appetite, has weight loss, cough productive of brown is sputum, cough has been increasing, is worried that it is getting worse,chest x-ray was ordered, sputum cultures ordered, has been seeing Dr. Dick in the past for chronic pulmonary fibrosis as well as pulmonary nodules, pain is controlled with the Anthony,pathology still pending from liver wedge resection and cholecystectomy open procedure,oncology following however they will see back the patient as outpatient follow-up blood sugars stable, no new chemistries available for review he would order them for tomorrow, albumin is decreased, has mild leukocytosis, creatinine 1.36 from few days ago 09/06:, Patient is scheduled for an ERCP today by Dr. Bhakta, to evaluate for postcholecystectomy bile leak, KASEY drain is still billous without any blood, patient has sharp pain prior to this which has subsided, patient denies any fever no chills, patient is currently being seen by pulmonary, with anticipation of the ERCP later today. Post-ERCP, Dr. morfin has informed me that cannulation of the common bile duct is unsuccessful, patient was desaturating as per anesthesia recommendation, the procedure was terminated now on o2 3l 93% at current best. Dr. Bruno has notified me regarding patient's outcome of the procedure and he plans on transferring the patient to tertiary center for common bile duct stent placement [facility] is expected for transfer. 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 Pulmonary Dr. Stout has been notified, underlying pulmonary fibrosis, continue O2 supplementation, might need IV Lasix. Will transfer once bed is available at the tertiary facility ROS Constitutional: Denies chills, Denies fever, Denies lethargy, Denies malaise, Denies poor appetite, Denies weakness, Denies weight loss Eyes: denies decreased vision, denies diplopia, denies discharge, denies pain Ears: deny: decreased hearing Ears, nose, mouth and throat: Denies dental pain, Denies headache, Denies nasal discharge, Denies nose pain Cardiovascular: Denies chest pain, Denies decreased exercise tolerance, Denies edema, Denies high blood pressure, Denies irregular heart beat, Denies palpitations, Denies paroxysmal nocturnal dyspnea, Denies rapid heart beat, endorses shortness of breath Respiratory: Denies congestion, Denies cough, Denies cough with sputum, endorses dyspneaimproving, Denies home oxygen, Denies wheezing Gastrointestinal: endorses abdominal pain post surgery, Denies change in bowel habits, Denies coffee ground emesis, Denies early satiety, Denies excessive gas, Denies heartburn, Denies hematemesis, Denies hematochezia, Denies loss of appetite, Denies nausea, Denies vomiting Genitourinary: Denies dysuria, Denies flank pain, Denies kidney stones, Denies menorrhagia, Denies urgency, Denies urinary frequency Musculoskeletal: Denies gait dysfunction, Denies limitation of motion, Denies morning stiffness, Denies muscle cramps Integumentary: Denies rash, Denies wounds, Denies brittle nails, Denies change in hair/nails, Denies darkening of skin Neurological: Denies balance difficulties, Denies change in speech, Denies double vision, Denies gait dysfunction, Denies loss of vision, Denies motor disturbance, Denies numbness, Denies paralysis, Denies paresthesias, Denies seizures Psychiatric: Denies anxiety, Denies depression Endocrine: Denies excessive sweating, Denies excessive thirst, Denies high blood sugars, Denies palpitations Hematologic/Lymphatic: Denies easy bruising, Denies lymphadenopathy Final diagnosis HOSPITAL COURSE Plan: #1 acute epigastric pain status post open cholecystectomy on 09/02/2019 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 results CA 19/9 significantly elevated , acute cholecystitis ruled out. oncology consult recommended follow- up as outpatient with possible chemotherapy . CT chest ordered for staging of the cancer suggested moderate airspace disease, atelectasis and pulmonary nodules in the pleural based #2 bile leak postop, unable to cannulate through ERCP by Dr. Bhakta gastroenterology, recommended tertiary facility on transfer to be made 09/06/2019 for stent placement #2 history of coronary artery disease stenting of RCA on 2018on aspirin and Plavix on hold for procedure continue Lipitor lisinopril and metoprolol #3 hyperlipidemia continue atorvastatin 20 mg by mouth daily #4 hypothyroidism continue 100 g by mouth daily #5 Code status full code #6 DVT prophylaxis with heparin 5000 every 12 #7 disposition likely subacute rehab. PTOT consult #8 interstitial pneumonitis/pulmonary fibrosis patient follows Dr. Guardado as outpatient and has shown stability over the past 2 years with no requirement of oxygen at home #9 liver mass, with mass within the gallbladder, status post incisional biopsy purposes (procedure cholecystectomy #10pneumonic infiltrate with increasing expectoration, familly wanted pulmonary followup hasnt seen them over [address] Guardado at the primary pulmonary doctor, incentive spirometry, on empiric treatment with metronidazole and Roceph in we will change to Zosyn discontinue Rocephin for possible hospital-acquired pneumonia, /3010, moderate protein calorie magician, supplements are already ordered strawberry ensure preferred rather than chocolate debilitysecondary to chronic illness, ambulate, PT OT Discharge anticipate transfer to [facility] for ERCP with common bile duct stent placement Patient Condition at Discharge: Serious Plan - Discharge Summary New Discharge Prescriptions: No Action Levothyroxine Sodium [Synthroid] 100 mcg PO DAILY Aspirin [Adult Low Dose Aspirin EC] 81 mg PO DAILY Atorvastatin [Lipitor] 40 mg PO DAILY #30 tab Nitroglycerin Sl Tabs [Nitrostat] 0.4 mg SUBLINGUAL Q5M PRN #25 tab PRN Reason: Chest Pain Clopidogrel [Plavix] 75 mg PO DAILY #30 tab Metoprolol Tartrate [Lopressor] 25 mg PO BID #60 tab Lisinopril [Zestril] 5 mg PO DAILY #30 tab guaiFENesin [Mucinex] 1,200 mg PO Q6H PRN PRN Reason: Congestion Discharge Medication List Aspirin [Adult Low Dose Aspirin EC] 81 mg PO DAILY 02/24/18 [History] Levothyroxine Sodium [Synthroid] 100 mcg PO DAILY 02/24/18 [History] Atorvastatin [Lipitor] 40 mg PO DAILY #30 tab 08/03/19 [Rx] Clopidogrel [Plavix] 75 mg PO DAILY #30 tab 08/03/19 [Rx] Lisinopril [Zestril] 5 mg PO DAILY #30 tab 08/03/19 [Rx] Metoprolol Tartrate [Lopressor] 25 mg PO BID #60 tab 08/03/19 [Rx] Nitroglycerin Sl Tabs [Nitrostat] 0.4 mg SUBLINGUAL Q5M PRN #25 tab 08/03/19 [Rx] guaiFENesin [Mucinex] 1,200 mg PO Q6H PRN 08/30/19 [History] Follow up Appointment(s)/Referral(s): [facility] [NON-STAFF] - 1 Week [facility], [NON-STAFF] - 1 Week Fer Gamez MD [Primary Care Provider] - 1-2 days Edy Villalba MD [STAFF PHYSICIAN] - 10 Days
[2019-09-06] MEDS ORDERED: SENNOSIDES-DOCUSATE SODIUM 1 EACH TAB PO SCH (21:00)
== END 2019-09-06 20:04 | disposition short-term general hospital (02) | DRG 415 ==
LOC: EC 12:36 → 5NMEDONC 15:59
PROVIDERS: ADMIT Internal Medicine; ATTEND Internal Medicine
PROC: 0FB10ZX Excision of Right Lobe Liver, Open Approach, Diagnostic (ICD-10-PCS; 2019-09-01)
PROC: 0FJ44ZZ Inspection of Gallbladder, Percutaneous Endoscopic Approach (ICD-10-PCS; 2019-09-01)
PROC: 0FT40ZZ Resection of Gallbladder, Open Approach (ICD-10-PCS; principal; 2019-09-01 11:15)
PROC: BF181ZZ Fluoroscopy of Pancreatic Ducts using Low Osmolar Contrast (ICD-10-PCS; 2019-09-06)
DX: C23 Malignant neoplasm of gallbladder (principal); C78.7 Secondary malignant neoplasm of liver and intrahepatic bile duct; K91.89 Other postprocedural complications and disorders of digestive system; E44.0 Moderate protein-calorie malnutrition; J84.89 Other specified interstitial pulmonary diseases; E86.0 Dehydration; J84.10 Pulmonary fibrosis, unspecified; D50.0 Iron deficiency anemia secondary to blood loss (chronic); I08.0 Rheumatic disorders of both mitral and aortic valves; E78.5 Hyperlipidemia, unspecified; I10 Essential (primary) hypertension; E03.9 Hypothyroidism, unspecified; I25.10 Atherosclerotic heart disease of native coronary artery without angina pectoris; R91.1 Solitary pulmonary nodule; H91.90 Unspecified hearing loss, unspecified ear; E66.9 Obesity, unspecified; Z68.30 Body mass index [BMI] 30.0-30.9, adult; Z79.82 Long term (current) use of aspirin; Z79.02 Long term (current) use of antithrombotics/antiplatelets; Z79.890 Hormone replacement therapy; Z79.899 Other long term (current) drug therapy; Z85.820 Personal history of malignant melanoma of skin; Z95.5 Presence of coronary angioplasty implant and graft; Z90.49 Acquired absence of other specified parts of digestive tract; Z85.3 Personal history of malignant neoplasm of breast; Z85.51 Personal history of malignant neoplasm of bladder; Z91.048 Other nonmedicinal substance allergy status; Z98.890 Other specified postprocedural states; Z71.3 Dietary counseling and surveillance; Z87.891 Personal history of nicotine dependence; Z87.01 Personal history of pneumonia (recurrent); Z88.1 Allergy status to other antibiotic agents; Z91.041 Radiographic dye allergy status; Z88.0 Allergy status to penicillin; Z88.2 Allergy status to sulfonamides; Z80.49 Family history of malignant neoplasm of other genital organs; Y83.8 Other surgical procedures as the cause of abnormal reaction of the patient, or of later complication, without mention of misadventure at the time of the procedure; Y92.234 Operating room of hospital as the place of occurrence of the external cause
CPT/HCPCS: 36415; 43260; 71250; 74176; 74330; 76705; 78226; 80053; 81001; 82105; 82150; 82550; 82553; 83605; 83690; 83880; 84145; 85025; 85027; 85610; 85652; 85730; 86140; 86301; 87040; 88304; 88307; 88341; 88342; 96361; 96365; 96372; 96375; 99285

== ENCOUNTER → 2019-10-07 | Outpatient (CLI) | payer MEDICARE ==
--- NOTE | 2019-10-09 15:59 | PE ---
Nuclear medicine PET/CT HISTORY: Cholangiocarcinoma, subsequent Patient received 11.5 mCi F-18 FDG intravenously in delayed scanning was performed from the skull bas e to the mid thighs. Localization and attenuation correction CT scan was performed. Correlation to MRI liver 10/08/2019, CT 08/30/2019 Neck and chest: No supraclavicular, cervical, mediastinal, axillary, or hilar adenopathy coronary art maylin calcifications are present. No evident lung mass. No pleural or pericardial effusion. ABDOMEN: There is intense hypermetabolic uptake in the corresponding region of the abnormality noted on prior CT and MRI within the liver. Some low-attenuation is noted on the PET/CT. Uptake along the a nterior abdominal wall is likely postoperative. There is no evident retroperitoneal adenopathy or asc ites. No pleural or caval adenopathy. Osseous structures are remarkable for spinal curvature, degenerative disc disease, facet arthropathy. IMPRESSION: Abnormal hypermetabolic uptake is suspicious within the liver
== END | disposition home or self-care (01) ==
LOC: RADPETMAIN 16:04
PROVIDERS: ATTEND Internal Medicine Hematology & Oncology
DX: C22.1 Intrahepatic bile duct carcinoma (principal)
CPT/HCPCS: 78815; A9552

== ENCOUNTER → 2019-10-08 | Outpatient (CLI) | payer MEDICARE ==
--- NOTE | 2019-10-09 14:58 | MR ---
EXAMINATION TYPE: MR liver wo/w con DATE OF EXAM: 10/08/2019 COMPARISON: HISTORY: Intrahepatic bile duct ca CONTRAST: Standard multiplanar, multisequence MRI departmental protocol utilizing 9 mL intravenous Gadavist gautam olinium contrast. There is 5.5 cm irregular area of increased signal on the T2 images In the anterior inferior right lo be of the liver. there is no ascites. Spleen is intact. Stomach has normal size and contour. There is some renal cortical atrophy. There are right side renal cortical cysts that measure up to 4 cm. There is no retroperitoneal adenopathy. The pancreas has normal size and contour. Pancreatic duct appears normal. The bile ducts are not dilated. I see no sign of retroperitoneal adenopathy. This i s near the gallbladder fossa. There appears to be cholecystectomy. The contrast images show some patchy enhancement of the lesion in the right lobe of the liver at the periphery. There is central component shows progressive enhancement on the initial and delayed images . There is appears to be some mild infiltrate and atelectasis at both lung bases. There is no pleural effusion. IMPRESSION: Cholecystectomy. No dilated ducts. Lesion in the anterior right lobe of the liver near the gallbladder fossa has slight increased signal on T2 images and less than I would expect for a hemangioma. There is some irregular contrast enhance ment and this is consistent with tumor. 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
== END | disposition home or self-care (01) ==
LOC: RADMRIMAIN 13:15
PROVIDERS: ATTEND Internal Medicine Hematology & Oncology
DX: C24.0 Malignant neoplasm of extrahepatic bile duct (principal); K76.9 Liver disease, unspecified; Z90.49 Acquired absence of other specified parts of digestive tract
CPT/HCPCS: 74183; A9585

== ENCOUNTER 2019-10-14 06:44 | Day surgery (SDC) | payer MEDICARE ==
[2019-10-12 08:54] VITALS: BMI 29.6
[~2019-10-14 06:44] MED LIST changes: -ALPRAZolam 0.25 MG TAB PO PRN; -ALPRAZolam 0.5 MG TAB PO PRN; -ASPIRIN 325 MG TAB PO STA; -ATORVASTATIN 80 MG TAB PO STA; +DEXAMETHASONE SOD PHOSPHATE 10 MG/ML 1 ML VIAL IV ONE; +HEPARIN SODIUM,PORCINE 5,000 UNIT/ML 1 ML VIAL SQ ONE; +HYDROmorphone 0.5 MG/0.5 ML SYRINGE IVP PRN; +LACTATED RINGERS 1,000 ML IV SCH; +MIDAZOLAM 2 MG/2 ML VIAL IV PRN; -NITROGLYCERIN SL TABS 0.4 MG TAB SUBLINGUAL PRN; +ONDANSETRON 4 MG/2 ML VIAL IVP ONE; +Pre Op ABX Message 1 EACH MISC MISCELLANE ONE; -SODIUM CHLORIDE 0.9% 1,000 ML in EMPTY BAG 1 BAG IV ONE
[2019-10-14 07:14] VITALS: TEMP 97.9
[2019-10-14] MEDS ORDERED: MIDAZOLAM 2 MG/2 ML VIAL ONE (08:20)
[2019-10-14] MEDS ORDERED: GLYCOPYRROLATE 0.2 MG/ML 2 ML VIAL ONE (08:20)
[2019-10-14] MEDS ORDERED: PROPOFOL 10 MG/ML 20 ML VIAL IV ONE (08:20)
[2019-10-14] MEDS ORDERED: KETAMINE 10 MG/ML 20 ML VIAL ONE (08:20)
[2019-10-14] MEDS ORDERED: fentaNYL (PF) 50 MCG/ML 2 ML AMP ONE (08:20)
--- NOTE | 2019-10-14 08:21 | P.GSHP ---
History of Present Illness H&P Date: 10/14/19 Chief Complaint: Gallbladder cancer This 79-year-old male previously diagnosed with gallbladder carcinoma. Patient rents today for Port-A-Cath placement. Patient aware of the risks of surgery including pneumothorax bleeding. Past Medical History Past Medical History: Coronary Artery Disease (CAD), Cancer, Hyperlipidemia, Hypertension, Pneumonia, Thyroid Disorder Additional Past Medical History / Comment(s): squamous cell skin cancer, basal cell skin cancer, melanoma (5 years ago, treated at [facility]), interstital pneumonia. gallbladder/liver cancer History of Any Multi-Drug Resistant Organisms: None Reported Past Surgical History: Appendectomy, Heart Catheterization With Stent, Tonsillectomy Additional Past Surgical History / Comment(s): bladder - blood tumor, bladder repair, melanoma and graft, viktoria cataracts removed,. mastoidectomy left ear [facility], plastic biliary stent 08/2019 at [facility], 10/12/2018 plans to have skin cancer removed Past Anesthesia/Blood Transfusion Reactions: No Reported Reaction Date of Last Stent Placement:: 08/02/2019 Smoking Status: Former smoker - Past Family History Mother Family Medical History: Cancer Sister(s) Family Medical History: Cancer Medications and Allergies Home Medications Medication Instructions Recorded Confirmed Type Levothyroxine Sodium [Synthroid] 100 mcg PO DAILY 02/24/18 10/14/19 History Nitroglycerin Sl Tabs [Nitrostat] 0.4 mg SUBLINGUAL Q5M PRN #25 tab 08/03/19 10/14/19 Rx guaiFENesin [Mucinex] 1,200 mg PO Q6H PRN 08/30/19 10/14/19 History Aspirin 81 mg PO DAILY chew 09/06/19 10/14/19 Rx Clopidogrel [Plavix] 75 mg PO DAILY tab 09/06/19 10/14/19 Rx Atorvastatin [Lipitor] 40 mg PO HS 10/12/19 10/14/19 History Metoprolol Tartrate [Lopressor] 12.5 mg PO BID 10/12/19 10/14/19 History Nystatin 100,000 Unit/ml Susp 1 ml PO QID PRN 10/12/19 10/14/19 History [Mycostatin Oral Susp] Allergies Allergy/AdvReac Type Severity Reaction Status Date / Time Penicillins Allergy Severe blisters Verified 10/14/19 07:10 erythromycin base Allergy Unknown Verified 10/14/19 07:10 Sulfa (Sulfonamide Allergy Unknown Verified 10/14/19 07:10 Antibiotics) Iodine and Iodide Containing AdvReac decrease Verified 10/14/19 07:10 Produc kidney function Surgical - Exam Vital Signs Temp Pulse Resp BP Pulse Ox 97.9 F 77 17 154/78 92 L 10/14/19 07:12 10/14/19 07:12 10/14/19 07:12 10/14/19 07:12 10/14/19 07:12 - General well developed - Eyes PERRL - ENT normal pinna, normal nares - Neck no masses - Respiratory normal expansion - Cardiovascular Rhythm: regular - Abdomen Abdomen: soft, non tender Assessment and Plan Assessment: History of gallbladder carcinoma. We'll perform Port-A-Cath placement.
[2019-10-14] MEDS ORDERED: SODIUM CHLORIDE 0.9% 100 ML with ceFAZolin 2,000 MG IV ONE ×2 (08:51)
[2019-10-14] MEDS ORDERED: HEPARIN SODIUM,PORCINE 100 UNIT/ML 5 ML VIAL IV ONE ×2 (08:53)
[2019-10-14] MEDS ORDERED: BUPIVACAINE (PF) 0.5% 30 ML VIAL SQ ONE ×2 (08:53)
[2019-10-14] MEDS ORDERED: IOPAMIDOL-370 50ML BTL MISCELLANE ONE (08:54)
--- NOTE | 2019-10-14 09:37 | FL ---
Fluoroscopy HISTORY: Port-A-Cath insertion 8 seconds fluoroscopy time supplied to the referring clinician. 1 intraoperative C-arm images docume nt the procedure. See dictated report from general surgery.
--- NOTE | 2019-10-14 09:45 | P.OP ---
Date of Procedure: 10/14/19 Preoperative Diagnosis: Gallbladder cancer Postoperative Diagnosis: Gallbladder cancer Procedure(s) Performed: Right subclavian Port-A-Cath Anesthesia: MAC Surgeon: Pato Bruno Estimated Blood Loss (ml): 5 Pathology: none sent Condition: stable Disposition: PACU Description of Procedure: PROCEDURE: The patient was placed on the operating table in the supine position. She received MAC anesthetic. The [right] chest was prepped and draped in the usual sterile fashion. The skin underneath the right clavicle was anesthetized with 1% Xylocaine and using Seldinger technique, the right subclavian vein was cannulized. The wire was placed through the needle and positioned under fluoroscopy. Next, the needle was removed and the port site was anesthetized with 1% Xylocaine. Skin was incised with #15 blade and port pocket was made using blunt and sharp dissection. Following this the catheter was attached to the sport and the port was flushed. The port was positioned into the pocket site and was secured with 3-0 Vicryl suture. The catheter was then brought out through the wire site and then the dilator sheath was placed over the wire and the dilator and the wire were removed. The catheter was placed through the sheath and the sheath was removed. The port was flushed with hep-lock solution. Skin was closed with interrupted 3-0 Vicryl sutures. Steri-Strips were applied. The patient tolerated the procedure well. The patient was sent to recovery room for chest x-ray after the procedure.
--- NOTE | 2019-10-14 09:50 | XR ---
EXAMINATION TYPE: XR chest 1V portable DATE OF EXAM: 10/14/2019 COMPARISON: CT dated 09/02/2019 HISTORY: Right-sided Port-A-Cath placement. TECHNIQUE: Single frontal view of the chest is obtained. FINDINGS: Right-sided Mediport terminates in the junction of the proximal superior vena cava and bra chiocephalic vein. Trace bilateral pleural effusions blunt the costophrenic angles. Multifocal airspa ce disease has improved from the prior 09/02/2019. Cardiomediastinal silhouette is again mildly enlar ged. No postprocedural pneumothorax. IMPRESSION: New right-sided Mediport terminates in the junction of the superior vena cava and brachi ocephalic vein. Improved aeration of the lungs.
[2019-10-14 10:17] VITALS: BP 159/57; PULSE 68; RESP 20
== END 2019-10-14 11:01 | disposition home or self-care (01) ==
LOC: OR 06:44
PROVIDERS: ATTEND Surgery
DX: C23 Malignant neoplasm of gallbladder (principal); I25.10 Atherosclerotic heart disease of native coronary artery without angina pectoris; I10 Essential (primary) hypertension; Z87.891 Personal history of nicotine dependence; E78.5 Hyperlipidemia, unspecified; E07.9 Disorder of thyroid, unspecified; Z87.01 Personal history of pneumonia (recurrent); Z85.828 Personal history of other malignant neoplasm of skin; Z85.820 Personal history of malignant melanoma of skin; Z95.5 Presence of coronary angioplasty implant and graft; Z80.9 Family history of malignant neoplasm, unspecified; Z79.02 Long term (current) use of antithrombotics/antiplatelets; Z79.82 Long term (current) use of aspirin; Z79.890 Hormone replacement therapy; Z79.899 Other long term (current) drug therapy; Z88.1 Allergy status to other antibiotic agents; Z88.0 Allergy status to penicillin; Z88.2 Allergy status to sulfonamides; Z91.048 Other nonmedicinal substance allergy status
CPT/HCPCS: 77001; 71045; 36561; C1788; J2250; J1644; J1642; J1100; J2405; J0690; J3010; J2704

== ENCOUNTER → 2019-10-24 | Day surgery (SDC) | payer MEDICARE ==
[2019-10-21 10:00] VITALS: BMI 29.6
--- NOTE | 2019-10-25 16:40 | IR ---
Fluoroscopic portogram([facility]). HISTORY: Device malfunction. The patient presented to the CVL with a Gerber needle within the port. Preliminary fluoroscopy demonst rated the catheter to be intact. However, the catheter appeared to be overlying the right lung apex a ppear to be in a different position from the exam of 10/14/2019. No aspiration could be obtained and t herefore injection could not be performed. Approximately 80 seconds of fluoroscopy provided. IMPRESSION: 1. No aspiration could be obtained from the Port-A-Cath. Injection could not be performed. Additional ly the tip of the catheter appears in a different position from the prior exam of 10/14/2019 and now a ppears to be overlying the right lung apex. Correlate for malposition or thrombosis of the catheter.
== END ==
LOC: CATHCVL 10:43
PROVIDERS: ATTEND Radiology Diagnostic Radiology
DX: T82.524A Displacement of infusion catheter, initial encounter (principal); Z53.8 Procedure and treatment not carried out for other reasons; C22.1 Intrahepatic bile duct carcinoma; J84.113 Idiopathic non-specific interstitial pneumonitis; I10 Essential (primary) hypertension; Z87.891 Personal history of nicotine dependence; E78.5 Hyperlipidemia, unspecified; N28.1 Cyst of kidney, acquired; J98.4 Other disorders of lung; Z90.49 Acquired absence of other specified parts of digestive tract; Z85.820 Personal history of malignant melanoma of skin; Z98.890 Other specified postprocedural states; Z80.3 Family history of malignant neoplasm of breast; Z83.2 Family history of diseases of the blood and blood-forming organs and certain disorders involving the immune mechanism; Z80.41 Family history of malignant neoplasm of ovary; Z79.02 Long term (current) use of antithrombotics/antiplatelets; Z79.82 Long term (current) use of aspirin; Z79.890 Hormone replacement therapy; Z79.899 Other long term (current) drug therapy; Z88.1 Allergy status to other antibiotic agents; Z88.0 Allergy status to penicillin; Z88.2 Allergy status to sulfonamides
CPT/HCPCS: 36598

== ENCOUNTER 2019-11-17 09:19 | Emergency (ER) | payer MEDICARE ==
[2019-11-17] MEDS ORDERED: ASPIRIN 81 MG PO STA (09:32)
[2019-11-17] MEDS ORDERED: NITROGLYCERIN SL TABS 0.4 MG TAB SUBLINGUAL STA (09:32)
[2019-11-17] MEDS ORDERED: ACETAMINOPHEN TAB 325 MG TAB PO STA (09:58)
--- NOTE | 2019-11-17 10:03 | ED ---
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 No nausea vomiting fevers chills sweats some breath he states he still has the soreness is mild at this time. Does not feel his previous cardiac event he states no other modifying factors no heavy lifting no cough or phlegm production. MD Complaint: chest pain - Related Data Home Medications Medication Instructions Recorded Confirmed Levothyroxine Sodium [Synthroid] 100 mcg PO DAILY 02/24/18 10/24/19 guaiFENesin [Mucinex] 1,200 mg PO Q6H PRN 08/30/19 10/24/19 Atorvastatin [Lipitor] 40 mg PO HS 10/12/19 10/24/19 Metoprolol Tartrate [Lopressor] 12.5 mg PO BID 10/12/19 10/24/19 Nystatin 100,000 Unit/ml Susp 1 ml PO QID PRN 10/12/19 10/21/19 [Mycostatin Oral Susp] Previous Rx's Medication Instructions Recorded Nitroglycerin Sl Tabs [Nitrostat] 0.4 mg SUBLINGUAL Q5M PRN #25 tab 08/03/19 Aspirin 81 mg PO DAILY chew 09/06/19 Clopidogrel [Plavix] 75 mg PO DAILY tab 09/06/19 Allergies Allergy/AdvReac Type Severity Reaction Status Date / Time Penicillins Allergy Severe blisters Verified 11/17/19 09:24 erythromycin base Allergy Unknown Verified 11/17/19 09:24 Sulfa (Sulfonamide Allergy Unknown Verified 11/17/19 09:24 Antibiotics) Iodine and Iodide Containing AdvReac decrease Verified 11/17/19 09:24 Produc kidney function Review of Systems ROS Statement: Those systems with pertinent positive or pertinent negative responses have been documented in the HPI. ROS Other: All systems not noted in ROS Statement are negative. EKG Findings - EKG Results: EKG: interpreted by ERMD, sinus rhythm (Sinus rhythm of 58 QRS is 88 [place] interval 158 QT since QTC 422/414 moderate voltage criteria for LVH) Past Medical History Past Medical History: Coronary Artery Disease (CAD), Cancer, Hyperlipidemia, Hypertension, Pneumonia, Thyroid Disorder Additional Past Medical History / Comment(s): squamous cell skin cancer, basal cell skin cancer, melanoma (5 years ago, treated at [facility]), interstital pneumonia. gallbladder/liver cancer, pt went for chemo and no blood return obtained from port and pt was given chemo with peripheral iv. History of Any Multi-Drug Resistant Organisms: None Reported Past Surgical History: Appendectomy, Heart Catheterization With Stent, Tonsillectomy Additional Past Surgical History / Comment(s): bladder - blood tumor, bladder repair, melanoma and graft, viktoria cataracts removed,. mastoidectomy left ear [facility], plastic biliary stent 08/2019 at [facility], 10/12/2018 plans to have skin cancer removed Past Anesthesia/Blood Transfusion Reactions: No Reported Reaction Date of Last Stent Placement:: 08/02/2019 Past Psychological History: No Psychological Hx Reported Smoking Status: Former smoker Past Alcohol Use History: None Reported Past Drug Use History: None Reported - Past Family History Mother Family Medical History: Cancer Sister(s) Family Medical History: Cancer General Exam - General Exam Comments Initial Comments: This is a well-developed well-nourished awake alert oriented times 3 male Limitations: no limitations General appearance: alert, in no apparent distress Head exam: Present: atraumatic, normocephalic, normal inspection Eye exam: Present: normal appearance, PERRL, EOMI. Absent: scleral icterus, conjunctival injection, periorbital swelling ENT exam: Present: normal exam, mucous membranes moist Neck exam: Present: normal inspection. Absent: tenderness, meningismus, lymphadenopathy Respiratory exam: Present: normal lung sounds bilaterally. Absent: respiratory distress, wheezes, rales, rhonchi, stridor Cardiovascular Exam: Present: regular rate, normal rhythm, normal heart sounds. Absent: systolic murmur, diastolic murmur, rubs, gallop, clicks GI/Abdominal exam: Present: soft, normal bowel sounds. Absent: distended, tenderness, guarding, rebound, rigid Extremities exam: Present: normal inspection, full ROM, normal capillary refill. Absent: tenderness, pedal edema, joint swelling, calf tenderness Back exam: Present: normal inspection Neurological exam: Present: alert, oriented X3, CN II-XII intact Psychiatric exam: Present: normal affect, normal mood Skin exam: Present: warm, dry, intact, normal color. Absent: rash Course Vital Signs 11/17/19 11/17/19 11/17/19 09:20 10:04 10:09 Temperature Pulse Rate 67 65 65 Respiratory 16 18 18 Rate Blood Pressure 109/54 137/57 116/65 O2 Sat by Pulse 96 98 Oximetry 11/17/19 11/17/19 11/17/19 11:23 12:20 13:00 Temperature 98.3 F Pulse Rate 57 L 55 L 58 L Respiratory 18 18 18 Rate Blood Pressure 118/49 113/53 115/53 O2 Sat by Pulse 96 98 97 Oximetry - Reevaluation(s) Reevaluation #1: 11/17/19 14:32 Patient had no aura episodes of the atypical chest discomfort that he experienced. 2 sets of enzymes are negative CAT scan was negative for Chest Pain MDM - MDM I did a long discussion with patient family regarding findings of the patient did have 2 sets of negative troponins. No further episodes of discomfort. He will follow-up with his doctors as planned including Dr. Villalba and Dr. Summers. Disposition Clinical Impression: Atypical chest pain, Liver cancer Disposition: HOME SELF-CARE Condition: Good Instructions (If sedation given, give patient instructions): Chest Pain (ED) Is patient prescribed a controlled substance at d/c from ED?: No Referrals: Sahne Chase MD [Primary Care Provider] - 1-2 days
[2019-11-17 10:13] LABS: Basophils % (A) 1 %; Eosinophils % (A) 1 %; HCT 28.8 % (39.0-53.0); HGB 9.9 gm/dL (13.0-17.5); Lymphocytes # (A) 1.2 k/uL (1.0-4.8); Lymphocytes % (A) 33 %; MCH 32.6 pg (25.0-35.0); MCHC 34.4 g/dL (31.0-37.0); MCV 94.9 fL (80.0-100.0); Monocytes # (A) 0.2 k/uL (0-1.0); Monocytes % (A) 5 %; Neutrophils # (A) 2.2 k/uL (1.3-7.7); Neutrophils % (A) 58 %; RBC 3.04 m/uL (4.30-5.90); RDW 15.3 % (11.5-15.5); WBC 3.7 k/uL (3.8-10.6)
[2019-11-17 10:18] LABS: Platelet Count 248 k/uL (150-450)
[2019-11-17 10:23] LABS: Albumin 3.3 g/dL (3.5-5.0); Magnesium 1.9 mg/dL (1.6-2.3); Potassium 4.5 mmol/L (3.5-5.1); Total Bilirubin 0.5 mg/dL (0.2-1.3); Total Protein 5.8 g/dL (6.3-8.2)
--- NOTE | 2019-11-17 10:46 | XR ---
EXAMINATION TYPE: XR chest 2V DATE OF EXAM: 11/17/2019 COMPARISON: 10/14/2019 HISTORY: Chest pain. Chemotherapy for hepatocellular carcinoma. TECHNIQUE: Frontal and lateral views of the chest are obtained. FINDINGS: Reticular opacities are seen at the lung bases as seen on the prior. Pulmonary hyperinflat ion suggests underlying COPD. Right-sided Mediport terminates near the brachiocephalic vein, slightly retracted from the prior. The cardiac silhouette size is enlarged. The osseous structures are int act. Mild to moderate degenerative change of the spine. Diffuse osseous demineralization. IMPRESSION: Reticular opacities at the lung bases could represent atelectasis or fibrosis but are un changed from the prior. Right-sided Mediport has been slightly retracted terminating in the brachioce phalic vein. No new focal consolidation.
[2019-11-17 10:47] LABS: INR 0.9 (<1.2); Prothrombin Time 9.9 sec (9.0-12.0)
[2019-11-17 10:53] LABS: D-Dimer 4.08 mg/L FEU (<0.60)
[2019-11-17 10:54] LABS: Partial Thromboplastin Time 21.4 sec (22.0-30.0)
[2019-11-17] MEDS ORDERED: SODIUM CHLORIDE 0.9% 500 ML 500 ML IV STA (11:10)
[2019-11-17] MEDS ORDERED: SODIUM CHLORIDE 0.9% 1,000 ML IV STA (11:10)
--- NOTE | 2019-11-17 13:00 | CT ---
EXAMINATION TYPE: CT angio chest DATE OF EXAM: 11/17/2019 COMPARISON: 09/02/2019 HISTORY: 79-year-old male chest pain TECHNIQUE: Contiguous axial scanning of the chest performed with IV Contrast, patient injected with 8 0 mL of Isovue 370. Coronal/sagittal MIP reconstructions performed. CT DLP: 515.6 mGycm Automated exposure control for dose reduction was used. FINDINGS: Heart mildly enlarged without pericardial effusion. Prominent epicardial fat pad is noted. Scattered three-vessel coronary artery calcifications. No flattening of the interventricular septum or reflux o f contrast into the hepatic veins. Extensive breathing motion artifacts are present. Moderate atherosclerotic arch calcifications. Ectat ic upper descending thoracic aorta 3.1 cm. 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 Right anterior chest wall injection port with subclavian approach. However, the catheter tip appears to end within the soft tissues of the right side of the thoracic inlet just along the right lateral a spect of the common carotid artery. Scattered mediastinal lymph nodes are present. Subcarinal lymph node is enlarged at 2.0 cm versus 1.9 cm, previously. Some prominent but nonenlarged bilateral hilar lymph nodes are noted. Extensive groundglass, predominantly dependent suggesting extensive atelectasis. More extensive patchy groundglass in the lower lungs. Additional groundglass in the periphery of the upper to mid lungs. Minimal emphysematous change. A 6 mm right upper lobe pulmonary nodule, axial image 44 is new. Large caliber to the main right and left pulmonary arteries are 2.6 cm each suggesting underlying pul monary hypertension. No large central or lobar branch pulmonary embolus. Many of the segmental and mo re distal arterial branches are nondiagnostic for assessment of emboli due to excessive breathing mot ion. Visualized upper abdomen shows right-sided renal cyst measuring up to 3.7 cm. Some vague hypodensity within segment 5 right liver lobe. Some scarring is present along the anterior right upper quadrant. This seems to be a biliary stent present. Bones: Endplate spondylosis throughout the thoracic spine. IMPRESSION: 1. EXTENSIVE BREATHING MOTION ARTIFACTS. THIS LIMITS ASSESSMENT FOR PULMONARY EMBOLI. NO LARGE CENTRA L OR LOBAR BRANCH EMBOLUS. MANY OF THE SEGMENTAL AND MORE DISTAL ARTERIAL BRANCHES ARE NONDIAGNOSTIC AND EMBOLI IN THESE LOCATIONS CANNOT BE EXCLUDED ON THE BASIS OF THIS EXAM. 2. RIGHT-SIDED CHEST WALL INJECTION PORT WITH SUBCLAVIAN APPROACH. HOWEVER, THE CATHETER TIP APPEARS MALPOSITIONED WITHIN THE SOFT TISSUES OF THE RIGHT THORACIC INLET ALONG THE LATERAL ASPECT OF THE COM MON CAROTID ARTERY. CLINICALLY CORRELATE. 3. A NEW 6 MM RIGHT UPPER LOBE PULMONARY NODULE. THREE-MONTH FOLLOW-UP CT RECOMMENDED TO REASSESS. A 2.0 CM MILDLY ENLARGED SUBCARINAL LYMPH NODE CAN ALSO BE REASSESSED AT THAT TIME. MEASURED 1.9 CM ON THE PRIOR EXAM, NOT SIGNIFICANTLY CHANGED. 4. EXTENSIVE GROUNDGLASS DENSITIES. LIKELY IN PART REPRESENTING AREAS OF ATELECTASIS. CORRELATE TO EX CLUDE UNDERLYING INTERSTITIAL PNEUMONITIS SUCH NSIP OR DRAFTER AUTOMOTIVE DESIGN LAYOUT. 5. MILD SCATTERED EMPHYSEMATOUS CHANGE. PULMONARY ARTERIAL HYPERTENSION. CAD WITH MILD CARDIOMEGALY.
[2019-11-17 14:35] VITALS: BP 137/76; PULSE 56; RESP 17; TEMP 98.5
== END 2019-11-17 14:38 | disposition home or self-care (01) ==
LOC: EC 09:19
DX: R07.89 Other chest pain (principal); C78.7 Secondary malignant neoplasm of liver and intrahepatic bile duct; M54.5 Low back pain; M25.551 Pain in right hip; I25.10 Atherosclerotic heart disease of native coronary artery without angina pectoris; E78.5 Hyperlipidemia, unspecified; I10 Essential (primary) hypertension; E07.9 Disorder of thyroid, unspecified; Z87.891 Personal history of nicotine dependence; Z88.0 Allergy status to penicillin; Z88.1 Allergy status to other antibiotic agents; Z88.2 Allergy status to sulfonamides; Z91.048 Other nonmedicinal substance allergy status; Z79.890 Hormone replacement therapy; Z79.899 Other long term (current) drug therapy; Z85.09 Personal history of malignant neoplasm of other digestive organs; Z85.820 Personal history of malignant melanoma of skin; Z85.828 Personal history of other malignant neoplasm of skin; Z92.21 Personal history of antineoplastic chemotherapy; Z95.5 Presence of coronary angioplasty implant and graft; Z98.890 Other specified postprocedural states
CPT/HCPCS: 36415; 93005; 85379; 83880; 80053; 82550; 83690; 83735; 84484; 85025; 85610; 85730; 71046; 71275; 99285; 96360; 96361 ×2; Q9967

== ENCOUNTER 2019-11-23 07:22 | Day surgery (SDC) | payer MEDICARE ==
[2019-11-22 14:56] VITALS: BMI 29.4
[~2019-11-23 07:22] MED LIST changes: +LIDOCAINE 1% (10MG/ML) FOR IV START INTRADERMA PRN; -Pre Op ABX Message 1 EACH MISC MISCELLANE ONE; +SCOPOLAMINE 1.5MG/72HR PATCH TRANSDERM ONE
[2019-11-23 08:04] VITALS: RESP 16; TEMP 97.4
[2019-11-23] MEDS ORDERED: LIDOCAINE 1% INJ 10MG/ML (20 ML MDV) ONE (09:01)
[2019-11-23] MEDS ORDERED: PROPOFOL 10 MG/ML 20 ML VIAL IV ONE (09:01)
[2019-11-23] MEDS ORDERED: KETAMINE 10 MG/ML 20 ML VIAL ONE (09:01)
[2019-11-23] MEDS ORDERED: fentaNYL (PF) 50 MCG/ML 2 ML AMP ONE (09:01)
--- NOTE | 2019-11-23 09:01 | P.GSHP ---
History of Present Illness H&P Date: 11/23/19 Chief Complaint: Gallbladder cancer This is a 1-year-old male with history of gallbladder cancer. Patient has developed a Port-A-Cath walker function. He presents today for replacement of Port-A-Cath. Past Medical History Past Medical History: Coronary Artery Disease (CAD), Cancer, Hyperlipidemia, Hypertension, Pneumonia, Thyroid Disorder Additional Past Medical History / Comment(s): squamous cell skin cancer, basal cell skin cancer, melanoma (5 years ago, treated at [facility]), interstital pneumonia, reports some kind of lung problem, not sure what it's called, gets SOB w/exertion, gallbladder/liver cancer dx. 2018, chemo currently-port not functioning per pt. History of Any Multi-Drug Resistant Organisms: None Reported Past Surgical History: Appendectomy, Cholecystectomy, Heart Catheterization With Stent, Tonsillectomy Additional Past Surgical History / Comment(s): bladder - blood tumor, bladder repair as a child, melanoma and graft, viktoria cataracts removed,. mastoidectomy left ear [facility], plastic biliary stent 08/2019 at [facility], skin cancer removed Past Anesthesia/Blood Transfusion Reactions: No Reported Reaction Date of Last Stent Placement:: 08/02/2019 Smoking Status: Former smoker - Past Family History Mother Family Medical History: Cancer Sister(s) Family Medical History: Cancer Medications and Allergies Home Medications Medication Instructions Recorded Confirmed Type Levothyroxine Sodium [Synthroid] 100 mcg PO SUTUWEFRSA 02/24/18 11/22/19 History Nitroglycerin Sl Tabs [Nitrostat] 0.4 mg SUBLINGUAL Q5M PRN #25 tab 08/03/19 11/22/19 Rx guaiFENesin [Mucinex] 1,200 mg PO Q6H PRN 08/30/19 11/22/19 History Aspirin 81 mg PO DAILY chew 09/06/19 11/22/19 Rx Clopidogrel [Plavix] 75 mg PO DAILY tab 09/06/19 11/22/19 Rx Atorvastatin [Lipitor] 40 mg PO HS 10/12/19 11/22/19 History Metoprolol Tartrate [Lopressor] 12.5 mg PO BID 10/12/19 11/22/19 History Levothyroxine Sodium [Synthroid] 125 mcg PO MOTH 11/22/19 11/22/19 History Allergies Allergy/AdvReac Type Severity Reaction Status Date / Time Penicillins Allergy Severe blisters Verified 11/23/19 08:04 erythromycin base Allergy Unknown Verified 11/23/19 08:04 Sulfa (Sulfonamide Allergy Unknown Verified 11/23/19 08:04 Antibiotics) Iodine and Iodide Containing AdvReac decrease Verified 11/23/19 08:04 Produc kidney function Surgical - Exam Vital Signs Temp Pulse Resp BP Pulse Ox 97.4 F L 66 16 132/62 97 11/23/19 08:01 11/23/19 08:01 11/23/19 08:01 11/23/19 08:01 11/23/19 08:01 - General well developed, well nourished, no distress - Eyes PERRL - ENT normal pinna - Neck no masses - Respiratory normal expansion - Cardiovascular Rhythm: regular - Abdomen Abdomen: soft, non tender Assessment and Plan Assessment: History of gallbladder cancer. Patient will undergo removal and replacement of Port-A-Cath.
[2019-11-23] MEDS ORDERED: BUPIVACAINE (PF) 0.25% 30 ML VIAL SQ ONE (09:28)
[2019-11-23] MEDS ORDERED: IOPAMIDOL-370 50ML BTL INJ ONE (09:29)
[2019-11-23] MEDS ORDERED: HEPARIN SODIUM,PORCINE 100 UNIT/ML 5 ML VIAL IV ONE (09:29)
[2019-11-23] MEDS ORDERED: IOHEXOL 180 MG/ML 1 ML ML INJ ONE (09:47)
--- NOTE | 2019-11-23 10:29 | P.OP ---
Date of Procedure: 11/23/19 Preoperative Diagnosis: Gallbladder cancer Postoperative Diagnosis: Gallbladder cancer Procedure(s) Performed: Placement of left subclavian Port-A-Cath Removal of right subclavian Port-A-Cath Anesthesia: MAC Surgeon: Pato Bruno Estimated Blood Loss (ml): 5 Pathology: none sent Condition: stable Disposition: PACU Description of Procedure: MPROCEDURE: The patient was placed on the operating table in the supine position. He received MAC anesthetic. The chest was prepped and draped in the usual sterile fashion. The skin underneath the right clavicle was anesthetized with 1% Xylocaine and using Seldinger technique, the left subclavian vein was cannulized. The wire was placed through the needle and positioned under fluoroscopy. Next, the needle was removed and the port site was anesthetized with 1% Xylocaine. Skin was incised with #15 blade and port pocket was made using blunt and sharp dissection. Following this the catheter was attached to the sport and the port was flushed. The port was positioned into the pocket site and was secured with 3-0 Vicryl suture. The catheter was then brought out through the wire site and then the dilator sheath was placed over the wire and the dilator and the wire were removed. The catheter was placed through the sheath and the sheath was removed. The port was flushed with hep-lock solution. Skin was closed with interrupted 3-0 Vicryl sutures. Next, the right subclavian Port-A-Cath site was anesthetized 1% local Xylocaine. Skin the size and using blunt dissection the Port-A-Cath was withdrawn. The skin was closed interrupted 3-0 Monocryl suture. Dermabond dressing were applied. The patient tolerated the procedure well. The patient was sent to recovery room for chest x-ray after the procedure.
--- NOTE | 2019-11-23 10:42 | XR ---
EXAMINATION TYPE: XR chest 1V portable DATE OF EXAM: 11/23/2019 COMPARISON: Prior chest x-ray 11/17/2019 HISTORY: Port-A-Cath placement TECHNIQUE: Single frontal view of the chest is obtained. FINDINGS: There is been placement of a left-sided Port-A-Cath via the subclavian approach. Distal ti p of the catheter is overlying the region of the cavoatrial junction. Patient is rotated. No evident pneumothorax or other significant interval change. IMPRESSION: No evident complication status post Port-A-Cath placement.
[2019-11-23 10:46] VITALS: BP 115/60; PULSE 65
--- NOTE | 2019-11-23 11:02 | FL ---
EXAMINATION TYPE: FL guided central line placemt DATE OF EXAM: 11/23/2019 CLINICAL HISTORY: Left-sided Port-A-Cath insertion and removal of the previously placed right-sided P ort-A-Cath TECHNIQUE: Fluoroscopy. COMPARISON: None. FINDINGS: Fluoroscopic guidance was provided during procedure performed by Dr. Bruno. A total of 33 seconds of fluoroscopic time was utilized during the procedure and 1 spot image was acquired. IMPRESSION: As Above.
== END 2019-11-23 11:23 | disposition home or self-care (01) ==
LOC: OR 07:22
PROVIDERS: ATTEND Surgery
DX: C23 Malignant neoplasm of gallbladder (principal); I25.10 Atherosclerotic heart disease of native coronary artery without angina pectoris; E78.5 Hyperlipidemia, unspecified; I10 Essential (primary) hypertension; Z87.01 Personal history of pneumonia (recurrent); E07.9 Disorder of thyroid, unspecified; Z85.828 Personal history of other malignant neoplasm of skin; Z85.820 Personal history of malignant melanoma of skin; Z90.49 Acquired absence of other specified parts of digestive tract; Z98.890 Other specified postprocedural states; Z90.89 Acquired absence of other organs; Z98.42 Cataract extraction status, left eye; Z98.41 Cataract extraction status, right eye; Z87.891 Personal history of nicotine dependence; Z80.9 Family history of malignant neoplasm, unspecified; Z79.890 Hormone replacement therapy; Z79.899 Other long term (current) drug therapy; Z79.82 Long term (current) use of aspirin; Z79.02 Long term (current) use of antithrombotics/antiplatelets; Z88.1 Allergy status to other antibiotic agents; Z88.0 Allergy status to penicillin; Z88.2 Allergy status to sulfonamides; Z88.8 Allergy status to other drugs, medicaments and biological substances
CPT/HCPCS: 77001; 71045; 36590; 36561; C1788; J1644; J1642; J1100; J0690; J2405; J2001; J3010; J2704; Q9967

== ENCOUNTER → 2020-01-05 | Outpatient (CLI) | payer MEDICARE ==
--- NOTE | 2020-01-05 13:40 | CT ---
EXAMINATION TYPE: CT angio chest DATE OF EXAM: 01/05/2020 COMPARISON: 11/17/2019 HISTORY: 79-year-old male SOB TECHNIQUE: Contiguous axial scanning of the chest performed with IV Contrast, patient injected with 6 0 mL of Isovue 370. Coronal/sagittal MIP reconstructions performed. CT DLP: 429 mGycm Automated exposure control for dose reduction was used. FINDINGS: Heart normal size without pericardial effusion. Three-vessel coronary calcifications are present. No flattening of the intraventricular septum or reflux of contrast into the hepatic veins. Moderate atherosclerotic arch calcifications. There is aberrant right subclavian artery which takes a reticular esophageal course. Atherosclerotic calcifications at the origin of this aberrant vessel ma y cause a severe focal stenosis, axial image 32. Left PICC tip at the caval atrial junction. 1.6 cm nodular density within the subcutaneous adipose of the anterior right upper chest wall probably prior catheter or injection port site. Redemonstrated scattered nonenlarged mediastinal lymph nodes. Borderline enlarged subcarinal lymph no de at 1.5 cm previously measured 2.0 cm. Satisfactory opacification of the pulmonary arterial system. Large caliber to the right and left main pulmonary arteries measuring up to 2.8 cm suggesting underlying pulmonary hypertension. No evidence for pulmonary embolus. Patchy peripheral groundglass densities shows improvement from prior. Residual changes are present. R eticular changes and fibrosis at the lung bases with traction bronchiolectasis. 7 mm peripheral right upper lobe pulmonary nodule unchanged from 11/17/2019. 4 mm subpleural pulmonary nodule left lower lobe axial image 80 was previously obscured is present. Visualized upper abdomen redemonstrates left-sided colonic diverticulosis, right-sided renal cysts an d a biliary stent. Similar strandy density at the gallbladder fossa region. Underlying 5.9 cm segment IVb mid hepatic lobe mass, possibly larger from 10/08/2019. Bones: Moderate anterior endplate spondylosis throughout the thoracic spine. IMPRESSION: 1. NO EVIDENCE FOR PULMONARY EMBOLUS. 2. PERIPHERAL GROUNDGLASS CHANGES SHOW SOME IMPROVEMENT FROM 11/17/2019. RESIDUAL DENSITIES REMAIN MAVIS G WITH BIBASILAR TRACTION BRONCHIOLECTASIS AND BIBASILAR FIBROSIS. CONSIDER UNDERLYING CHRONIC FIBROS IS OR NSIP AND EXCLUDE RESOLVING SUPERIMPOSED ATYPICAL PNEUMONIA. 3. PULMONARY ARTERIAL HYPERTENSION, CAD, ABERRANT RIGHT SUBCLAVIAN ARTERY WITH POSSIBLE SEVERE FOCAL STENOSIS AT ITS ORIGIN. 4. A COUPLE PULMONARY NODULES MEASURING UP TO 7 MM WERE EITHER OBSCURED OR STABLE BACK ON 11/17/2019 AN D SHOULD CONTINUE TO BE MONITORED. 5. KNOWN MID HEPATIC LOBE NEOPLASM, POSSIBLY SLIGHTLY LARGER FROM 10/08/2019.
== END | disposition home or self-care (01) ==
LOC: RADCTMAIN 12:02
PROVIDERS: ATTEND Internal Medicine Hematology & Oncology
DX: J47.9 Bronchiectasis, uncomplicated (principal); J84.10 Pulmonary fibrosis, unspecified; R91.8 Other nonspecific abnormal finding of lung field; I27.20 Pulmonary hypertension, unspecified; I25.10 Atherosclerotic heart disease of native coronary artery without angina pectoris; I77.89 Other specified disorders of arteries and arterioles; C22.1 Intrahepatic bile duct carcinoma; Z88.0 Allergy status to penicillin; Z88.8 Allergy status to other drugs, medicaments and biological substances; Z88.5 Allergy status to narcotic agent
CPT/HCPCS: 71275; Q9967

== ENCOUNTER → 2020-01-18 | Outpatient (CLI) | payer MEDICARE ==
--- NOTE | 2020-01-18 10:50 | MR ---
EXAMINATION TYPE: MR abdomen wo/w con DATE OF EXAM: 01/18/2020 COMPARISON: Prior PET/CT October 07, 2019. HISTORY: Abdominal pain, hx gallbladder cancer CONTRAST: Standard multiplanar, multisequence MRI departmental protocol utilizing 9 mL intravenous Gadavist gautam olinium contrast. FINDINGS: Slightly suboptimal study due to some wraparound artifact along with mild respiratory motio n artifact degradation. Liver: Liver remains normal in size. Corresponding to PET/CT in the anterior-inferior right hepatic l obe there is lobulated lesion measuring roughly 4.5 x 2.5 cm axial image 37 series 501 of T2 hyperint ensity and T1 hypointensity that shows heterogeneous postcontrast enhancement with progressive fillin g on delayed phase images. Seen better on MRI there are additional subcentimeter lesions of T2 hyperi ntensity for reference hepatic dome axial image 45, and posterior right hepatic lobe axial image 40 r oughly 1.3 cm lesion. Likely a few small additional intrahepatic lesions. For reference coronal image 24 near gallbladder fossa and coronal image 20 hepatic dome. Gallbladder redemonstrated surgically a bsent. No new suspicious biliary dilatation. Enhancing lesions are confirmed seen best on coronal pos tcontrast imaging. Patent nondilated main portal vein. Patent hepatic veins draining into IVC. No beronica rounding ascites. Other: Lung bases are clear. The spleen, pancreas, and both adrenal glands are normal in size. Multif ocal areas of cortical scarring throughout both kidneys. Simple appearing thin-walled cysts bilateral ly more numerous and larger on the right kidney. Underlying levoconvex scoliosis centered at L2-L3 le donnell. Multilevel spurring in the spine. Diverticula in the transverse and left colon. No suspicious radha wel dilatation. No abdominal ascites. Some ectasia to the abdominal aorta without greater than 3 cm a neurysmal change. IMPRESSION: Probable disease progression with visualization of more suspicious scattered intrahepatic lesions on MRI versus recent PET/CT.
== END | disposition home or self-care (01) ==
LOC: RADMRIMAIN 09:18
PROVIDERS: ATTEND Internal Medicine Hematology & Oncology
DX: C22.1 Intrahepatic bile duct carcinoma (principal)
CPT/HCPCS: 74183; A9585

== ENCOUNTER → 2020-02-07 | Outpatient (CLI) | payer MEDICARE ==
--- NOTE | 2020-02-08 08:54 | CT ---
EXAMINATION TYPE: CT ChestAbdPelvis w con DATE OF EXAM: 02/07/2020 COMPARISON: 01/05/[address] fusion of 10/07/2019 HISTORY: Generalized pain with liver cancer. Cholangiocarcinoma CT DLP: 1746 mGycm CONTRAST: CT scan of the chest, abdomen and pelvis is performed with Oral Contrast and with IV Contrast, patien t injected with 80 mL of Isovue 300. CT Chest: LUNGS: Stable right upper lobe pleural-based nodule measuring 7 mm versus 7 mm previously. 3 mm subpl eural nodule seen within the right middle lobe. Basilar pulmonary fibrosis. Groundglass density right upper lobe is unchanged. No new nodules or masses identified in the interval. MEDIASTINUM: Thoracic aorta is of normal caliber. The heart is not enlarged. No evidence for media stinal mass or adenopathy. HILAR STRUCTURES: No evidence for mass. No hilar adenopathy is appreciated. OTHER: No significant abnormality. CONTRAST CT ABDOMEN AND PELVIS FINDINGS: LIVER/GB: Irregular hepatic mass identified medial segment left hepatic lobe measuring an estimated 3 .5 x 3.1 x 4.5 cm. There are several small sub-5 mm lesions noted within the left hepatic lobe latera l segment. Findings are compatible with patient's history of cholangiocarcinoma. The gallbladder is s urgically absent. Biliary tree is of normal caliber. PANCREAS: No inflammation. No distinct mass. SPLEEN: No splenic enlargement. No lesion seen. ADRENALS: No nodule. No thickening. KIDNEYS/BLADDER: No hydronephrosis. No nephrolithiasis. Renal cystic changes identified unchanged. Renal parenchymal thinning noted bilaterally. Urinary bladder wall thickening may be related to poor distention. Urinary bladder diverticula identified. BOWEL: Normal appendix. Normal bowel caliber. No inflammation. GENITAL ORGANS: Prostate gland calcifications.. LYMPH NODES: No greater than 1cm abdominal or pelvic lymph nodes are appreciated. AORTA: No significant abnormality. OSSEOUS STRUCTURES: Severe multilevel degenerative disc disease with vacuum disc noted.. OTHER: No significant additional abnormality is seen. IMPRESSION: 1. Dominant hepatic mass compatible with patient's history of cholangiocarcinoma. As noted there few scattered sub-5 mm lesions within the left hepatic lobe. Metastatic disease is difficult to exclude. 2. Pulmonary fibrosis. 3. Stable scattered pulmonary nodules of uncertain etiology.
== END | disposition home or self-care (01) ==
LOC: RADCTMAIN 14:58
PROVIDERS: ATTEND Internal Medicine Hematology & Oncology
DX: R06.02 Shortness of breath (principal); R10.9 Unspecified abdominal pain; Z03.89 Encounter for observation for other suspected diseases and conditions ruled out; C22.1 Intrahepatic bile duct carcinoma; J84.10 Pulmonary fibrosis, unspecified; R91.8 Other nonspecific abnormal finding of lung field
CPT/HCPCS: 82565; 84520; 71260; 74177; 36415; Q9967

== ENCOUNTER → 2020-02-29 | Outpatient (CLI) | payer MEDICARE ==
--- NOTE | 2020-02-29 14:00 | FL ---
EXAMINATION TYPE: FL UGI air w small bowel DATE OF EXAM: 02/29/2020 COMPARISON: CT chest abdomen and pelvis February 07, 2020 HISTORY: History of liver cancer with increasing abdominal pain TECHNIQUE: A double contrast UGI study is performed with small bowel follow through. Roughly 70 seco nds fluoroscopic time utilized. 43 spot images saved to PACS. FINDINGS: Community Organizer image of the abdomen shows plastic internal biliary stent or catheter. Overall nonob structive bowel gas pattern. Persistent levoconvex scoliosis centered at L3 level with multilevel spu rring in the spine. Overlying vascular calcification is noted. The esophagus shows some episodes of dysmotility with abnormal secondary tertiary contractions. Overl kianna Mediport catheter is partially imaged. Small size sliding-type hiatal hernia. Moderate gastroeso phageal reflux to distal one half of the esophagus noted during real-time scanning. No intraluminal s tricturing. The stomach shows satisfactory distensibility, peristalsis, and mucosal folds. No evidence of any ma ss or ulcer disease. The duodenal bulb and sweep show large diverticulum measuring 4 to 5 cm long mesenteric surface near junction of second and third portion duodenum corresponding to coronal image 47. The small bowel study shows normal transit to the colon in less than 210 minutes. There is normal mu cosal fold pattern throughout the small bowel. There is no evidence of any stricture or filling defe ct noted. The terminal ileum is felt within normal limits. Difficult to accurately spine due to cont rast-filled bowel overlap and patient having more focal pain at this level unable to tolerate mary shaun IMPRESSION: Underlying esophageal dysmotility. Small sliding-type hiatal hernia. Moderate gastroesoph ageal reflux. Large duodenal diverticulum.
== END | disposition home or self-care (01) ==
LOC: RADFLMAIN 08:37
PROVIDERS: ATTEND Internal Medicine Hematology & Oncology
DX: K22.4 Dyskinesia of esophagus (principal); K44.9 Diaphragmatic hernia without obstruction or gangrene; K21.9 Gastro-esophageal reflux disease without esophagitis; K57.10 Diverticulosis of small intestine without perforation or abscess without bleeding; Z88.2 Allergy status to sulfonamides; Z88.0 Allergy status to penicillin; Z88.1 Allergy status to other antibiotic agents
CPT/HCPCS: 74240; 74248